=== PATIENT | male | born 1955 | race Caucasian/White ===

== ENCOUNTER → 2019-05-27 10:39 | Outpatient (CLI) | payer BC, SELFPAY ==
--- NOTE | 2019-05-27 | DI.US.S_ITS ---
PROCEDURE: US PERIPH VENOUS LOW EXTREM RT INDICATIONS: UNILATERAL PRIMARY OSTEOARTHRITIS, RIGHT KNEE TECHNIQUE: Real-time imaging, as well as color and pulse Doppler interrogation, were performed of the lower extremity deep veins from the inguinal ligament to the popliteal fossa. COMPARISON: None. FINDINGS: The common femoral, and femoral and veins are normally compressible, and free of intraluminal thrombus. There is, however, DVT within the popliteal vein. Color and pulse Doppler demonstrate normal phasic intraluminal flow except that the popliteal vein. There is diminished augmentation response to distal compression maneuver. IMPRESSION: Acute appearing thrombus at the popliteal vein, but no DVT elsewhere. Dictated by: Farooq Torres M.D. on 05/27/2019 at 12:07 Approved by: Farooq Torres M.D. on 05/27/2019 at 12:09
== END ==
PROVIDERS: Family Provider Physician Assistant; PCP Family Medicine; Referring Provider Orthopaedic Surgery; Visit Provider Orthopaedic Surgery
DX: M17.11 Unilateral primary osteoarthritis, right knee (principal); I82.431 Acute embolism and thrombosis of right popliteal vein
CPT/HCPCS: 93971

== ENCOUNTER 2019-05-27 11:16 | Emergency (ER) | payer BC, SELFPAY ==
[2019-05-27 11:26] VITALS: BP 146/82; PULSE 90; RESP 14; TEMP 36.8; O2SAT 98; BMI 26.1
--- NOTE | 2019-05-27 11:32 | ED_ITS ---
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 Was apparently seen by Dr. Watson this morning there was a concern for DVT, he was sent to [facility] for an ultrasound that is reportedly positive. He presents to the emergency room for further evaluation. He is having no chest pain, palpitations, dyspnea are other signs and symptoms that would be consistent with a pulmonary embolism. His right calf is more swollen than the left calf and somewhat tender posteriorly. Related Data Previous Rx's Medication Instructions Recorded apixaban [Eliquis DVT-PE Treat 30D See Rx Instructions .ROUTE 05/27/19 Start] .COMPLEX #74 each oxycodone 5 mg PO Q8H PRN #14 tab 05/27/19 Allergies Allergy/AdvReac Type Severity Reaction Status Date / Time Penicillins Allergy Unknown Verified 05/27/19 12:13 Review of Systems Review of Systems Narrative: Remainder of ROS is unremarkable Patient History Medical History (Updated 05/27/19 @ 13:08 by Sera Abreu MD) Osteosarcoma (Acute) Surgical History (Updated 05/27/19 @ 11:42 by Sera Abreu MD) Status post left partial knee replacement (Acute) Social History Smoking Status: Former smoker Exam Narrative Exam Narrative: General: Healthy appearing, in no acute distress. Able to give a complete and coherent history. Well-nourished well-developed HEENT: Moist mucous membranes, normal sclera with reactive pupils, Neck: No JVD, supple Respiratory: Lungs are clear to auscultation, no wheezing no rales no rhonchi. Full and symmetrical air movement Cardiac: Regular rate and rhythm no murmurs no bruits Abdomen: Soft nontender good bowel tones, no flank pain Skin: Warm and dry, no rashes Neurologic: Grossly neurologically intact with no obvious asymmetries or abnormalities Extremities: Right calf tender posteriorly slightly more swollen than left, surgical site on the right side is healing nicely Psych: Cooperative, appropriate insight and affect Initial Vital Signs Initial Vital Signs: Vital Signs Temperature 98.2 F 05/27/19 11:26 Pulse Rate 90 05/27/19 11:26 Respiratory Rate 14 05/27/19 11:26 Blood Pressure 146/82 H 05/27/19 11:26 Pulse Oximetry 98 05/27/19 11:26 Course Orders Ordered: Discontinued Medications Apixaban (Eliquis) 10 mg PO NOW ONE Stop: 05/27/19 13:09 Vital Signs Vital signs: Vital Signs - 8 hr 05/27/19 11:26 Temperature 98.2 F Pulse Rate 90 Respiratory Rate 14 Blood Pressure 146/82 H Pulse Oximetry 98 Medical Decision Making Medical Records Medical records reviewed: Yes I reviewed the patient's medical records. MDM Narrative Medical decision making narrative: Distal DVT after a knee replacement surgery. No signs of PE year proximal extension. Pain is been an issue he has only 14 more oxycodone left at home. Will start on Eliquis, follow-up appointment with Dr. Forrest with coordination happening in the emergency room today. An additional 20 more oxycodone as well as a month of Eliquis with the starter pack prescription sent to [facility] All questions are answered. Patient is safe for home discharge Discharge Plan Departure Patient Disposition: Home Clinical Impression: Deep vein thrombosis of lower extremity Qualifiers: Affected thrombotic vein of extremity: popliteal Chronicity: acute Laterality: right Qualified Code(s): I82.431 - Acute embolism and thrombosis of right popliteal vein Instructions: DI for Deep Vein Thrombosis Activity Restrictions/Additional Instructions: Thank you for coming in today. I am sorry about all of the confusion. I have spoken with Dr. Schwartz who will be managing your deep venous thrombosis. It is in the lower calf only and does not come higher than your knee. I have sent a prescription for Eliquis, a blood thinner, to [facility] for you to [facility]eps[facility]. Please follow the instructions on the pack it. I have given you your mg dose in the emergency department. I have also sent a prescription for additional oxycodone to help with pain from this DVT to the same drug store I have reviewed findings with Dr. Schwartz and he is expecting to see you this MondayMay 30 at 2:00 a.m. in his office to review all findings and make sure your tolerating the medicine appropriately. If you have any additional concerns problems more swelling in the upper part of your leg, notice palpitations, chest pain, shortness of breath, rapid heart rate all of those things would be appropriate to have further evaluated with a return to the emergency department. I hope you heal completely and quickly. Prescriptions: New Laurenmireyafelipe DVT-PE Treat 30D Start 5 mg (74 tabs) tablets,dose pack See Rx Instructions .ROUTE .COMPLEX Qty: 74 RF: 0 oxycodone 5 mg tablet 5 mg PO Q8H PRN (Reason: pain) Qty: 14 RF: 0 Referrals: Chapito Schwartz MD [Primary Care Provider] - Cb Watson MD [Physician] - (Surgery done by Dr Montoya)
[2019-05-27 13:24] VITALS: BP 140/68; PULSE 82; RESP 14; O2SAT 95
== END 2019-05-27 13:26 | disposition home or self-care (01) ==
PROVIDERS: Emergency Provider Emergency Medicine; Family Provider Physician Assistant; PCP Family Medicine
DX: I82.431 Acute embolism and thrombosis of right popliteal vein (principal); M17.11 Unilateral primary osteoarthritis, right knee
CPT/HCPCS: 93971; 99281; 99283

== ENCOUNTER 2019-06-02 17:34 | Emergency (ER) | payer BC, SELFPAY ==
--- NOTE | 2019-06-02 17:46 | DI.RAD.S_ITS ---
PROCEDURE: XR CHEST 1V INDICATIONS: chest pain TECHNIQUE: One view of the chest was acquired. COMPARISON: [facility], , CHEST 2 VIEW, 07/08/2007, 9:16. FINDINGS: Surgical changes and devices: None. Lungs and pleura: Low lung volumes are noted. This causes a crowded appearance to the lung markings and limits evaluation. Mild, streaky opacities are seen at the lung bases. No pneumothorax or pleural effusions are seen. Mediastinum: Mediastinal contours appear normal. Heart size is normal. Bones and chest wall: No suspicious bony lesions. Overlying soft tissues appear unremarkable. IMPRESSION: Likely atelectasis is seen at the lung bases in this patient with an incomplete inspiratory result. Differential diagnosis includes mild/early infiltrate, yet this is considered to be less likely. As clinically appropriate, a short-term followup chest series (with PA and lateral views) performed in deep inspiration is suggested for further evaluation. Dictated by: Paulo Menard M.D. on 06/02/2019 at 17:07 Approved by: Paulo Menard M.D. on 06/02/2019 at 17:08
[2019-06-02 17:48] VITALS: BP 140/86; PULSE 120; RESP 18; TEMP 36.9; O2SAT 98; BMI 26.1
[2019-06-02 17:59] LABS: Add Manual Diff / Slide Review NO; Basophils Absolute Auto 100 /uL (0-100); Basophils Percent Auto 0.7 % (0-2); Eosinophils Absolute Auto 500 /uL (0-450); Eosinophils Percent Auto 4.2 % (2-4); Hematocrit 44.6 % (41-53); Hemoglobin 15.4 g/dL (13.5-17.5); Lymphocytes Absolute Auto 2100 /uL (1100-4500); Lymphocytes Percent Auto 18.7 % (25-40); Mean Corpuscular HGB Conc 34.6 % (30-36); Mean Corpuscular Hemoglobin 32.9 PG (26-34); Mean Corpuscular Volume 95.3 fL (80-100); Monocytes Absolute Auto 800 /uL (0-900); Monocytes Percent Auto 7.1 % (3-14); Neutrophils Absolute Auto 7700 /uL (1500-7000); Neutrophils Percent Auto 69.3 % (50-75); Platelet Count 171 X10^3/uL (150-400); Red Blood Cell Count 4.68 X10^6/uL (4.5-5.9); White Blood Cell Count 11.2 X10^3/uL (4.5-11.0)
[2019-06-02 18:05] LABS: Alanine Aminotransferase 24 IU/L (<50); Albumin 4.5 g/dL (3.5-5.0); Albumin Globulin Ratio 1.3 (1.0-2.8); Alkaline Phosphatase 98 U/L (38-126); Aspartate Aminotransferase 25 IU/L (17-59); BUN Creatinine Ratio 14.6 (6-22); Blood Urea Nitrogen 13 mg/dL (9-20); Calcium 9.5 mg/dL (8.4-10.2); Carbon Dioxide 25 mmol/L (22-32); Chloride 102 mmol/L (98-107); Creatine Kinase 37 U/L (55-170); Estimated Glomerular Filt Rate > 60.0 mL/min (>60); Globulin 3.5 g/dL (1.7-4.1); Glucose 122 mg/dL (80-110); HEMOLYSIS < 15 (0-50); Lipase 27 U/L (23-300); Potassium 4.3 mmol/L (3.4-5.1); Sodium 136 mmol/L (137-145)
[2019-06-02 18:06] LABS: INR 1.2 (0.9-1.3); Prothrombin Time 13.7 SECONDS (10.1-12.7)
[2019-06-02 18:08] LABS: PTT Partial Thromboplastin Tim 35 SECONDS (26.4-36.2)
--- NOTE | 2019-06-02 18:11 | ED_ITS ---
HPI - Chest Pain General Chief Complaint: Chest Pain Stated Complaint: Chest pain Time Seen by Provider: 06/02/19 17:46 Source: patient Mode of arrival: Ambulatory Limitations: no limitations History of Present Illness HPI narrative: 63-year-old male with a known right lower extremity DVT. Currently on Eliquis for this here for evaluation of left and right-sided chest pain. Symptoms started earlier today. Not worse with palpation or movement. States it is worse with taking a deep breath. The right lower extremity DVT was presumably caused by a right-sided knee surgery within the past month. He states that he has been taking his Eliquis since that was prescribed to him. Related Data Previous Rx's Medication Instructions Recorded apixaban [Eliquis DVT-PE Treat 30D See Rx Instructions .ROUTE 05/27/19 Start] .COMPLEX #74 each oxycodone 5 mg PO Q8H PRN #14 tab 05/27/19 enoxaparin [Lovenox] 80 mg SUBCUT Q12H #8 ml 06/02/19 hydrocodone-acetaminophen [[place]] 1 tab PO Q8H PRN #10 tab 06/02/19 Allergies Allergy/AdvReac Type Severity Reaction Status Date / Time Penicillins Allergy Unknown Verified 05/27/19 12:13 Review of Systems Constitutional Constitutional: Denies fever(s) and Denies headache(s) ENT Ears, Nose, Mouth, and Throat: Denies headache(s) Cardiovascular Cardiovascular: Reports chest pain, Reports rapid heart rate and Denies dyspnea on exertion Respiratory Respiratory: Reports pain on inspiration and Denies dyspnea on exertion Gastrointestinal Gastrointestinal: Denies abdominal pain, Denies nausea and Denies vomiting Genitourinary Genitourinary: Denies dysuria Musculoskeletal Musculoskeletal: Denies myalgias Integumentary/Breasts Skin/Breast: Denies lesions and Denies rash Neurologic Neurologic: Denies behavioral changes and Denies headache(s) Psychiatric Psychiatric: Denies behavioral changes Hematologic/Lymphatic Comments: On Eliquis Allergic/Immunologic Allergic/Immunologic: Denies urticaria Patient History Medical History Deep vein thrombosis of lower extremity (Inactive) Osteosarcoma (Acute) Surgical History (Updated 05/27/19 @ 11:42 by Sera Abreu MD) Status post left partial knee replacement (Acute) Social History Smoking Status: Former smoker Smoking Status: Former smoker Substance Use Type: does not use Exam Initial Vital Signs Initial Vital Signs: Vital Signs Temperature 98.4 F 06/02/19 17:48 Pulse Rate 120 H 06/02/19 17:48 Respiratory Rate 18 06/02/19 17:48 Blood Pressure 140/86 06/02/19 17:48 Pulse Oximetry 98 06/02/19 17:48 Const General: cooperative, comfortable, well developed and well groomed Limitations: mental status not altered HENMT Head: normal to inspection and normocephalic Resp Effort & Inspection: normal respiratory effort Auscultation: clear to auscultation bilaterally Cardio Rate: tachycardic Rhythm: regular rhythm Pulses: radial pulses present Skin Lesions: no lesions Rashes: no rashes Neuro General: alert and awake Cognition: normal cognition Speech: speech normal Gait: normal gait Motor: muscle tone normal throughout Extrem General: capillary refill normal Psych Appearance: grossly normal and well kempt Scores GCS Lucas coma scale eye opening: Spontaneous Sumner coma scale verbal response: Orientated Sumner coma scale motor response: Obey commands Lucas coma scale total score: 15 Course Orders Ordered: Discontinued Medications Hydrocodone Bitart/Acetaminophen (Vicodin 5/325 Prepack) 1 bottle MISC SEEINSTR ONE Stop: 06/02/19 19:59 Last Admin: 06/02/19 20:39 Dose: 1 bottle Documented by: MIKA Hydrocodone Bitart/Acetaminophen ([place] 5/325) 2 tab PO NOW ONE Stop: 06/02/19 20:59 Last Admin: 06/02/19 21:03 Dose: 2 tab Documented by: MIKA Enoxaparin Sodium (Lovenox) 85 mg 1 mg/kg (85 mg) SUBCUT NOW ONE Stop: 06/02/19 19:18 Last Admin: 06/02/19 20:39 Dose: 85 mg Documented by: MIKA Hydromorphone HCl (Dilaudid) 1 mg IV NOW ONE Stop: 06/02/19 18:58 Last Admin: 06/02/19 19:15 Dose: 1 mg Documented by: CHRISTIN Morphine Sulfate (Morphine) 4 mg IV NOW ONE Stop: 06/02/19 18:13 Last Admin: 06/02/19 18:20 Dose: 4 mg Documented by: CHRISTIN Vital Signs Vital signs: Vital Signs - 8 hr 06/02/19 20:00 Pulse Rate 96 H Respiratory Rate 20 Blood Pressure [Right Arm] 128/80 Pulse Oximetry 94 MDM - Chest Pain Medical Records Data Attestation: I reviewed the patient's medical records. Lab Data Attestation: I reviewed the patient's lab results. Result diagrams: 06/02/19 17:46 06/02/19 17:46 Labs: Lab Results 06/02/19 06/02/19 06/02/19 Range/Units 17:46 17:46 17:46 WBC 11.2 H (4.5-11.0) X10^3/uL RBC 4.68 (4.5-5.9) X10^6/uL Hgb 15.4 (13.5-17.5) g/dL Hct 44.6 (41-53) % MCV 95.3 (80-100) fL MCH 32.9 (26-34) PG MCHC 34.6 (30-36) % RDW 13.0 (11.6-14.8) % Plt Count 171 (150-400) X10^3/uL Neut % (Auto) 69.3 (50-75) % Lymph % (Auto) 18.7 L (25-40) % Cascade % (Auto) 7.1 (3-14) % Eos % (Auto) 4.2 H (2-4) % Baso % (Auto) 0.7 (0-2) % Neut # (Auto) 7700 H (7011-0586) /uL Lymph # (Auto) 2100 (8290-9559) /uL Cascade # (Auto) 800 (0-900) /uL Eos # (Auto) 500 H (0-450) /uL Baso # (Auto) 100 (0-100) /uL PT 13.7 H (10.1-12.7) SECONDS INR 1.2 (0.9-1.3) APTT 35 (26.4-36.2) SECONDS Sodium 136 L (137-145) mmol/L Potassium 4.3 (3.4-5.1) mmol/L Chloride 102 (98-107) mmol/L Carbon Dioxide 25 (22-32) mmol/L BUN 13 (9-20) mg/dL Creatinine 0.89 (0.66-1.25) mg/dL Estimated GFR > 60.0 (>60) mL/min BUN/Creatinine Ratio 14.6 (6-22) Glucose 122 H (80-110) mg/dL Calcium 9.5 (8.4-10.2) mg/dL Total Bilirubin 1.0 (0.2-1.3) mg/dL AST 25 (17-59) IU/L ALT 24 (<50) IU/L Alkaline Phosphatase 98 (38-126) U/L Total Creatine Kinase 37 L (55-170) U/L CK-MB (CK-2) TNP CK-MB (CK-2) Rel Index TNP Troponin I < 0.012 (0.01-0.034) ng/mL NT-Pro-B Natriuret Pep (<125) pg/mL Total Protein 8.0 (6.3-8.2) g/dL Albumin 4.5 (3.5-5.0) g/dL Globulin 3.5 (1.7-4.1) g/dL Albumin/Globulin Ratio 1.3 (1.0-2.8) Lipase 27 (23-300) U/L 03/15/20 Range/Units 17:46 WBC (4.5-11.0) X10^3/uL RBC (4.5-5.9) X10^6/uL Hgb (13.5-17.5) g/dL Hct (41-53) % MCV (80-100) fL MCH (26-34) PG MCHC (30-36) % RDW (11.6-14.8) % Plt Count (150-400) X10^3/uL Neut % (Auto) (50-75) % Lymph % (Auto) (25-40) % Cascade % (Auto) (3-14) % Eos % (Auto) (2-4) % Baso % (Auto) (0-2) % Neut # (Auto) (5460-1259) /uL Lymph # (Auto) (8975-7737) /uL Cascade # (Auto) (0-900) /uL Eos # (Auto) (0-450) /uL Baso # (Auto) (0-100) /uL PT (10.1-12.7) SECONDS INR (0.9-1.3) APTT (26.4-36.2) SECONDS Sodium (137-145) mmol/L Potassium (3.4-5.1) mmol/L Chloride (98-107) mmol/L Carbon Dioxide (22-32) mmol/L BUN (9-20) mg/dL Creatinine (0.66-1.25) mg/dL Estimated GFR (>60) mL/min BUN/Creatinine Ratio (6-22) Glucose (80-110) mg/dL Calcium (8.4-10.2) mg/dL Total Bilirubin (0.2-1.3) mg/dL AST (17-59) IU/L ALT (<50) IU/L Alkaline Phosphatase (38-126) U/L Total Creatine Kinase (55-170) U/L CK-MB (CK-2) CK-MB (CK-2) Rel Index Troponin I (0.01-0.034) ng/mL NT-Pro-B Natriuret Pep 42 (<125) pg/mL Total Protein (6.3-8.2) g/dL Albumin (3.5-5.0) g/dL Globulin (1.7-4.1) g/dL Albumin/Globulin Ratio (1.0-2.8) Lipase (23-300) U/L Imaging Data Chest x-ray: Radiologist's Impression: [address] [address] XRay Report Signed Patient: Eliezer Ríos [facility]#: [id number] : 6Acct:[id number] Age/Sex: 63 / MDate of Service: 06/02/19 Loc: ED Accession Number: [id number] Procedure: XR chest 1V Ordering Provider: Geovanni Ford PROCEDURE: XR CHEST 1V INDICATIONS: chest pain TECHNIQUE: One view of the chest was acquired. COMPARISON: [facility] , CHEST 2 VIEW, 07/08/2007, 9:16. FINDINGS: Surgical changes and devices: None. Lungs and pleura: Low lung volumes are noted. This causes a crowded appearance to the lung markings and limits evaluation. Mild, streaky opacities are seen at the lung bases. No pneumothorax or pleural effusions are seen. Mediastinum: Mediastinal contours appear normal. Heart size is normal. Bones and chest wall: No suspicious bony lesions. Overlying soft tissues appear unremarkable. IMPRESSION: Likely atelectasis is seen at the lung bases in this patient with an incomplete inspiratory result. Differential diagnosis includes mild/early infiltrate, yet this is considered to be less likely. As clinically appropriate, a short-term followup chest series (with PA and lateral views) performed in deep inspiration is suggested for further evaluation. Dictated by: Paulo Menard M.D. on 06/02/2019 at 17:07 Approved by: Paulo Menard M.D. on 06/02/2019 at 17:08 CT scan - chest: Radiologist's Impression: [address] [address] [address] Scan Report Signed Patient: Eliezer Ríos MMR#: [id number] : 6Acct:[id number] Age/Sex: 63 / MDate of Service: 06/02/19 Loc: ED Accession Number: [id number] Procedure: CT angio chest PE protocol Ordering Provider: Quincy Marsh D.O. PROCEDURE: CT ANGIO CHEST PE PROTOCOL INDICATIONS: Chest pain, shortness of breath, tachycardia TECHNIQUE: After the administration of intravenous contrast, 2 mm thick sections acquired from the pulmonary apices to the posterior costophrenic angles. 3-dimensional maximum intensity projection (MIP) coronal and sagittal reformats were then acquired through the thorax. For radiation dose reduction, the following was used: automated exposure control, adjustment of mA and/or kV according to patient size. COMPARISON: None. FINDINGS: Image quality: Excellent. Pulmonary arteries: There are acute pulmonary emboli present in multiple right lower lobe basilar segment pulmonary arteries. There is no central pulmonary emboli. Lungs and pleura: Patchy bibasilar atelectasis. No pleural fluid. Mediastinum: Heart size is normal, without pericardial effusion. No med iastinal or hilar adenopathy. Thoracic aorta is normal in caliber and enhancement. Esophagus is normal in caliber, without hiatal hernia. Bones and chest wall: No suspicious bony lesions. Ribs and thoracic spine appear intact throughout. Thyroid gland is unremarkable. No axillary or supraclavicular adenopathy. Abdomen: Visualized upper abdominal solid organs appear normal in the early arterial phase of enhancement. IMPRESSION: Multiple acute pulmonary emboli, right lower lobe. No central PE. No heart strain. Mild bibasilar atelectasis. Comment: Findings were discussed with Dr. Marsh at the time of study dictation. Dictated by: Alexander Charles M.D. on 06/02/2019 at 19:06 Approved by: Alexander Charles M.D. on 06/02/2019 at 19:10 ECG Data Attestation: I personally reviewed and interpreted this ECG as follows: Prior ECG tracings: not available for review Interpretation: Sinus tachycardia Ventricular rate 117 Left axis deviation Normal QRS Normal QTC No ST T wave changes MDM Narrative Medical decision making narrative: Patient is tachycardic however is not tachypneic, not hypoxic, not in any respiratory distress. Troponin is negative. BNP is negative. Not hypotensive. Is having right and left-sided chest pain. Is also tachycardic. Has a known history of a DVT. States he has been taking his Eliquis as prescribed. CTA of his chest does show multiple right-sided pulmonary embolisms user distal pulmonary embolus. I did discuss the results of the CT scan with the patient informed him that since he has been on the Eliquis and yet has developed pulmonary emboli that we now need to switch him to Lovenox. He was given his 1st dose here in the emergency department and was given a prescription for this. He was instructed to stop taking the Eliquis he was also instructed that tomorrow he needed to contact his primary provider for follow-up. I feel given the fact that he is stable that he does not require admission to the hospital. He was given strict return precautions and follow-up instructions. He expressed understanding and agreement. Discharge Plan Departure Patient Disposition: Home Clinical Impression: Pulmonary embolism Qualifiers: Pulmonary embolism type: unspecified Chronicity: acute Acute cor pulmonale presence: unspecified Qualified Code(s): I26.99 - Other pulmonary embolism without acute cor pulmonale Chest pain Qualifiers: Chest pain type: unspecified Qualified Code(s): R07.9 - Chest pain, unspecified Discharge Date/Time: 06/02/19 21:21 Instructions: DI for Pulmonary Embolism Activity Restrictions/Additional Instructions: Your CT scan today does show multiple pulmonary emboli. This is most likely from the blood clot in your right lower extremity. Unfortunately this is despite the fact that you have been using the Eliquis. We now need to switch you to a medication called Lovenox. Tomorrow you need to contact your primary provider for a follow-up in to discuss further workup. An electronic prescription for the Lovenox was sent to [facility]. Return to the emergency department for any new or worsening symptoms Prescriptions: New enoxaparin [Lovenox] 80 mg/0.8 mL syringe 80 mg SUBCUT Q12H Qty: 8 RF: 5 hydrocodone-acetaminophen [[place]] 5-325 mg tablet 1 tab PO Q8H PRN (Reason: pain) Qty: 10 RF: 0 No Action Eliquis DVT-PE Treat 30D Start 5 mg (74 tabs) tablets,dose pack See Rx Instructions .ROUTE .COMPLEX Qty: 74 RF: 0 oxycodone 5 mg tablet 5 mg PO Q8H PRN (Reason: pain) Qty: 14 RF: 0 Referrals: Chapito Schwartz MD [Primary Care Provider] -
[2019-06-02] MEDS: MORPHINE 4 MG/ML INJ IV (18:20)
[2019-06-02 18:28] LABS: NT-proBNP (BNP-Adult 18+) 42 pg/mL (<125)
[2019-06-02 18:35] LABS: Troponin I < 0.012 ng/mL (0.01-0.034)
[2019-06-02 18:49] VITALS: BP 149/70; PULSE 99; RESP 21; O2SAT 99
[2019-06-02] MEDS: HYDROMORPHONE 1 MG INJ IV (19:15)
[2019-06-02 20:00] VITALS: BP 128/80; PULSE 96; RESP 20; O2SAT 94
[2019-06-02] MEDS: HYDROCODONE/ACET 5/325 PREPACK 1 BOTTLE MISC (20:39)
[2019-06-02] MEDS: ENOXAPARIN 100 MG/ML SYRINGE 85 MG SUBCUT (20:39)
[2019-06-02] MEDS: HYDROCODONE/ACET 5/325 TABLET 2 TAB PO (21:03)
== END 2019-06-02 21:21 | disposition home or self-care (01) ==
PROVIDERS: Nurse Practitioner Family; Emergency Provider Emergency Medicine; Family Provider Physician Assistant; PCP Family Medicine
DX: I26.99 Other pulmonary embolism without acute cor pulmonale (principal); R07.9 Chest pain, unspecified; R06.02 Shortness of breath; R00.0 Tachycardia, unspecified; Z79.01 Long term (current) use of anticoagulants
CPT/HCPCS: 36415; 71045; 71275; 80053; 82550; 83690; 83880; 84484; 85025; 85610; 85730; 93005; 96372; 96374; 96375; 99284; J1170; J1650; J2270; Q9967

== ENCOUNTER → 2019-06-04 11:55 | Outpatient (CLI) | payer BC, SELFPAY ==
--- NOTE | 2019-06-04 | DI.US.S_ITS ---
PROCEDURE: US PERIPH VENOUS LOW EXTREM RT INDICATIONS: FOLLOW UP RIGHT LEG DVT TECHNIQUE: Real-time imaging, as well as color and pulse Doppler interrogation, were performed of the lower extremity deep veins from the inguinal ligament to the popliteal fossa. COMPARISON: [facility], CT, CT ANGIO CHEST PE PROTOCOL, 06/02/2019, 18:14. [facility], US, US PERIP VENOUS LOW EXTREM RT, 05/27/2019, 10:58. FINDINGS: The common femoral, femoral and popliteal veins are normally compressible, and free of intraluminal thrombus. Color and pulse Doppler demonstrate normal phasic intraluminal flow. There is normal augmentation response to distal compression maneuver. IMPRESSION: Resolution of a right popliteal vein DVT identified 05/27/19. Dictated by: Farooq Torres M.D. on 06/04/2019 at 13:54 Approved by: Farooq Torres M.D. on 06/04/2019 at 13:55
== END ==
PROVIDERS: Family Provider Physician Assistant; PCP Family Medicine; Referring Provider Family Medicine; Visit Provider Family Medicine
DX: Z09 Encounter for follow-up examination after completed treatment for conditions other than malignant neoplasm (principal); Z86.718 Personal history of other venous thrombosis and embolism
CPT/HCPCS: 93971

== ENCOUNTER → 2019-06-20 08:54 | Outpatient (CLI) | payer BC, SELFPAY ==
--- NOTE | 2019-06-20 | DI.US.S_ITS ---
PROCEDURE: PERIP VENOUS LOW EXTREM RT INDICATIONS: RECENT HISTORY RIGHT POPLITEAL DVT, PE TECHNIQUE: Real-time imaging, as well as color and pulse Doppler interrogation, were performed of the lower extremity deep veins from the inguinal ligament to the popliteal fossa. COMPARISON: [facility], [facility] [place] VENOUS LOW EXTREM RT, 05/27/2019, 10:58. [facility], [facility] [place] [facility] LOW EXTREM RT, 06/04/2019, 12:15. FINDINGS: The common femoral, femoral and popliteal veins are normally compressible, and free of intraluminal thrombus. Color and pulse Doppler demonstrate normal phasic intraluminal flow. There is normal augmentation response to distal compression maneuver. Previously seen popliteal vein thrombus is no longer visualized. IMPRESSION: No evidence of deep venous thrombosis. Previously identified popliteal DVT no longer sonographically visible. Dictated by: Brice Soler M.D. on 06/20/2019 at 9:46 Approved by: Brice Soler M.D. on 06/20/2019 at 9:48
== END ==
PROVIDERS: Family Provider Physician Assistant; PCP Family Medicine; Referring Provider Family Medicine; Visit Provider Family Medicine
DX: I82.431 Acute embolism and thrombosis of right popliteal vein (principal); I26.99 Other pulmonary embolism without acute cor pulmonale
CPT/HCPCS: 93971

== ENCOUNTER → 2020-12-14 11:05 | Outpatient (CLI) | payer OTHER, SELFPAY ==
[2020-12-14 11:38] LABS: Appearance Urine UA CLEAR; Bilirubin Urine UA NEGATIVE (NEGATIVE); Color Urine UA YELLOW; Glucose Urine UA NEGATIVE (Negative); Ketones Urine UA NEGATIVE (NEGATIVE); Leukocyte Esterase Urine UA NEGATIVE (NEGATIVE); Nitrite Urine UA NEGATIVE (Negative); Occult Blood Urine UA NEGATIVE (Negative); Protein Urine UA NEGATIVE (Negative); Specific Gravity Urine UA 1.015 (1.000-1.035); Urobilinogen Urine UA 0.2 E.U./dL (0.2)
[2020-12-14 12:13] LABS: Bacteria Urine None Seen; Culture Indicated Urine Cult Not Indicated; RBC Urine None Seen (0-5/HPF); Urine Comments Microscopic Normal; WBC Urine None Seen (0-5/HPF)
[2020-12-14 12:20] LABS: Add Manual Diff / Slide Review NO; Basophils Absolute Auto 100 /uL (0-100); Basophils Percent Auto 0.9 % (0-2); Eosinophils Absolute Auto 400 /uL (0-450); Eosinophils Percent Auto 5.7 % (2-4); Hematocrit 46.7 % (41-53); Hemoglobin 16.1 g/dL (13.5-17.5); Lymphocytes Absolute Auto 2300 /uL (1100-4500); Lymphocytes Percent Auto 31.5 % (25-40); Mean Corpuscular HGB Conc 34.5 % (30-36); Mean Corpuscular Hemoglobin 33.9 PG (26-34); Mean Corpuscular Volume 98.3 fL (80-100); Monocytes Absolute Auto 400 /uL (0-900); Monocytes Percent Auto 5.9 % (3-14); Neutrophils Absolute Auto 4200 /uL (1500-7000); Platelet Count 112 X10^3/uL (150-400); Red Blood Cell Count 4.75 X10^6/uL (4.5-5.9); Red Cell Distribution Width 13.1 % (11.6-14.8); White Blood Cell Count 7.5 X10^3/uL (4.5-11.0)
[2020-12-14 12:28] LABS: Hemoglobin A1C% w Est Avg Glu 5.3 % (4.0-6.0)
[2020-12-14 12:52] LABS: BUN Creatinine Ratio 17.7 (6-22); Blood Urea Nitrogen 14 mg/dL (9-20); Calcium 9.4 mg/dL (8.4-10.2); Carbon Dioxide 27 mmol/L (22-32); Chloride 107 mmol/L (98-107); Estimated Glomerular Filt Rate > 60.0 mL/min (>60); Glucose 94 mg/dL (80-110); HEMOLYSIS < 15 (0-50); Potassium 4.2 mmol/L (3.4-5.1); Sodium 138 mmol/L (137-145)
== END ==
PROVIDERS: Family Provider Physician Assistant; PCP Family Medicine; Referring Provider Orthopaedic Surgery Orthopaedic Surgery of the Spine; Visit Provider Orthopaedic Surgery Orthopaedic Surgery of the Spine
DX: Z01.818 Encounter for other preprocedural examination (principal); Z01.812 Encounter for preprocedural laboratory examination; R73.9 Hyperglycemia, unspecified; N39.0 Urinary tract infection, site not specified
CPT/HCPCS: 36415; 80048; 81001; 83036; 85025; 93005

== ENCOUNTER → 2021-01-01 11:36 | Outpatient (CLI) | payer OTHER, SELFPAY ==
[2021-01-01 13:37] LABS: COVID19 -Nasal RAPID Negative (Negative)
== END ==
PROVIDERS: Family Provider Physician Assistant; PCP Family Medicine; Referring Provider Nurse Practitioner; Visit Provider Nurse Practitioner
DX: Z20.822 Contact with and (suspected) exposure to COVID-19 (principal)
CPT/HCPCS: 87635

== ENCOUNTER 2021-01-04 12:11 | Observation (INO) | payer OTHER, SELFPAY ==
[2021-01-01 13:40] VITALS: BMI 25.8
[2021-01-04] VITALS (14 sets, daily range): BP systolic 122–156; BP diastolic 77–92; PULSE 83–108; RESP 15–24; TEMP 36.1–37.1; O2SAT 92–97; BMI 25.8
[2021-01-04] MEDS: ACETAMINOPHEN 325 MG TABLET 975 MG PO (13:16)
[2021-01-04] MEDS: LACTATED RINGERS 1,000 ML 42 ML IV ×2 (13:16→17:55)
--- NOTE | 2021-01-04 15:24 | PM.PREOP ---
Pre-operative Note COVID-19 COVID-19 status: Negative Result date/Date tested (Pos, Neg/Pending): 01/02/21 Interval Note History & Physical reviewed/Exam performed by Physician: Yes Changes to H&P: No
[2021-01-04] MEDS: CLINDAMYCIN 900 MG/50 ML PIGGYBACK 50 MG IV (15:48)
[2021-01-04] MEDS: BUPIVACAINE 0.25% (PF) VIAL 30 ML INJ (16:16)
[2021-01-04] MEDS: BUPIVACAINE LIPOSOME 266 MG/20 ML VIAL INJ (16:17)
[2021-01-04] MEDS: EPINEPHrine 1 MG/ML 0.15 MG IM (16:17)
--- NOTE | 2021-01-04 16:20 | SUR.OPER ---
Prone on spine table, head in foam head support, padded chest and pelvic supports, gel pad at knees, lower legs supported by pillows; nipples, genitalia and toes free of pressure, arms secured on foam padded arm boards at <90 degrees abduction. Tape over blanket at thigh secured to table.
--- NOTE | 2021-01-04 18:18 | DI.RAD.S_ITS ---
PROCEDURE: XR LUMBAR SPINE 2-3V INDICATIONS: L4-5 TLIF TECHNIQUE: 2 low resolution intraoperative fluoroscopic spot films were obtained COMPARISON: None. FINDINGS: Low resolution fluoroscopic spot films show centrally positioned L4-5 interbody cage graft and associated posterior ron and screw instrumentation. IMPRESSION: Fluoroscopic guidance Approved by: Marcin Muñoz M.D. on 01/04/2021 at 18:00
--- NOTE | 2021-01-04 18:21 | PM.OP.1 ---
Operative Date/Time/Diagnoses Date of procedure: 01/04/21 Time of procedure: 15:30 Pre-op diagnosis: 1. L4-5 far lateral disc herniation 2. L4-5 spinal stenosis with radiculopathy Post-op diagnosis: same Procedure & Clinicians Procedure: 1. L4-5 Postero-lateral and posterior interbody fusion 2. L4-5 interbody cage placement. 3. L4-5 decompressive laminectomy with bilateral facetecomies 4. L4-5 Posterior non-segmental instrumentation 5. [place] of bone marrow from iliac crest 6. Utilization of microsurgical technique and operating microscope Same procedure as scheduled: Yes Indications: Patient has been having chronic back pain and worsening lumbar radiculopathy. Patient failed multiple conservative management with worsening pain weakness and numbness in her lower extremity. Patient has been having difficulty performing activity of daily living. After discussing risks benefits of treatment options, patient elected proceed with surgery. Surgeon: Rg Rose Chief Scientific Officer: Carmen Grimes Click Yes if Unassisted: No Anesthesia Type: General Operative Notes Closure Type: primary Specimen(s): none sent Prosthetic devices, grafts, tissues, transplants, or devices: Globus revolve screws, Rise cage Applied: catheter Estimated Blood Loss (mL): 50 Blood products transfused: none Procedure in detail: Patient was seen in the preoperative area. Risks and benefits of the surgery was discussed with the patient. Informed consent was obtained from the patient and placed in the chart. Surgical site was marked. Patient was taken to the operative room. General anesthesia was administered. Prophylactic antibiotic was given to the patient less than 30 min before the incision was made. Patient was placed into a prone position on the Rubio table. Patient's back was then prepped and draped in the sterile fashion. Time-out was performed at this time. Using AP and lateral C-arm imaging the interval between L4-5 was identified and marked on patient's back. A 2 inch incision 2 in from midline was made on the left side first. The fascia was incised in line with skin incision. Globus MARS retractors was placed inside the incision and docked onto the L4 lamina. Using microsurgical technique and operating microscope, a L4 laminectomy and L4-5 facetectomy was performed using a Kerrison rongeur. The disc space at L4-5 was identified. And a total diskectomy was performed at L4-5 level. Patient was found to have a extruded far lateral disc herniation causing severe neural foramen stenosis on the left side with severe neural nerve root impingement. The stenosis was fully decompressed after the laminectomy facetectomy diskectomy was completed. The laminectomy and facetectomy rendered L4-5 level grossly unstable and require fusion procedure at the same time. The endplates were decorticated using a rasp and shaver. The total diskectomy and decortication was performed at L4-5 level in order to to accomplish a L4-5 fusion. The local bone from the laminectomy and facetectomy was saved for local bone grafting. After the total diskectomy and decortication was completed, Trifecta bone graft material was combined with local bone that was harvested earlier. At this time, a separate skin is incision was made over the iliac crest. A Jamshidi needle was inserted into the iliac crest through a separate skin incision. 5 cc of bone marrow aspiration was obtained through the separate skin incision using a Jamshidi needle from the iliac crest. The bone marrow aspiration was combined with local bone and the Trifecta bone grafting material. The bone grafting material was placed into the L4-5 interbody space along with a expandable cage. The cage was expanded to its maximum height using the torque limiting screwdriver. At this time a mirror image incision was made on the right side. The fascia was incised in line with the skin incision. Globus MARS retractor was inserted and docked onto the L4-5 posterolateral gutter. Using the power drill, posterior-lateral decortication was performed at L4-5 level until bleeding cortical bone was identified. The remaining bone grafting material was placed into the L4-5 posterior lateral gutter he order to accomplish posterolateral fusion at the L4-5 level. Using the double C-arm technique, pedicle screws were placed into the L4-5 pedicles bilaterally. This was done by placing the Jamshidi needle into the pedicles, then placing the guidewires over the Jamshidi needle, and finally placing the cannulated screws over the guidewires bilaterally. After the pedicle screws were placed, 2 titanium rods was locked into the heads of the pedicle screws using locking caps and torque limiting screwdriver. After all the hardware was placed, and confirmed with AP and lateral C-arm imaging, the wound was then irrigated with sterile normal saline and packed with Ray-Danna gauze for 3 min to accomplish hemostasis. After the gauze was removed the deep fascia was closed with #1 Vicryl suture. The subcutaneous layer was closed with 2-0 Vicryl. The skin was closed with skin fam. Patient tolerated the procedure well. There were no complications. Complications: none Post-operative Condition: stable Disposition: PACU Plan for aftercare: Admit to inpatient hospital
[2021-01-04] MEDS: HYDROMORPHONE 2 MG INJ IV ×4 (18:31→19:05)
[2021-01-04] MEDS: OXYCODONE IR 5 MG TABLET PO ×2 (18:33→19:21)
[2021-01-04] MEDS: SODIUM CHLORIDE 0.9% 1,000 ML 100 ML IV (21:04)
[2021-01-04] MEDS: OXYCODONE IR 5 MG TABLET 10 MG PO ×2 (21:09→23:47)
[2021-01-04] MEDS: CLINDAMYCIN 600 MG/50 ML PIGGYBACK 50 MG IV (21:16)
--- NOTE | 2021-01-04 22:45 | PC.NURSE ---
Pt arrived from PACU approximately 1929 Sleepy, arouses easily SpO2 96% RA Dsg to surgical back CDI IVF infusing via pump as per MD orders. Med once for discomfort w/good relief. in room. ' Call light w/in reach, bed alarm on for pt safety. Continue w/plan of care
[2021-01-04] MEDS: hydrOXYzine pamoate 25 MG CAPSULE PO (23:47)
[2021-01-05] VITALS: BP 124/85; PULSE 88; RESP 16; TEMP 36.5; O2SAT 95
[2021-01-05] MEDS: CLINDAMYCIN 600 MG/50 ML PIGGYBACK 50 MG IV (03:20)
[2021-01-05] MEDS: OXYCODONE IR 5 MG TABLET 10 MG PO ×4 (03:21→15:07)
[2021-01-05 03:39] VITALS: RESP 16; TEMP 36.3
[2021-01-05 07:13] VITALS: BP 113/72; PULSE 71; RESP 17; TEMP 36.2; O2SAT 94
[2021-01-05] MEDS: hydrOXYzine pamoate 25 MG CAPSULE PO ×4 (07:39→19:22)
[2021-01-05] MEDS: ACETAMINOPHEN 325 MG TABLET 650 MG PO ×2 (07:47→20:58)
--- NOTE | 2021-01-05 07:56 | P.PN_ITS ---
Subjective Subjective Date Patient Seen: 01/05/21 Time Patient Seen: 07:56 Interval history: Pain is moderate to severe. Denies fever or chills. Patient is nauseous but no vomiting. Exam Vital Signs (past 8 hours): - 01/05/21 00:00 01/05/21 03:39 Temperature 97.7 F 97.4 F L Pulse Rate 88 Respiratory Rate 16 16 Blood Pressure 124/85 Pulse Oximetry 95 Oxygen Delivery Method Room Air Oxygen Flow Rate 0 Narrative Exam Narrative: 65-year-old male resting comfortably in bed in no apparent distress. Dressing is Clean, dry, intact.. Motor functions intact bilateral lower extremities. Sensation grossly intact to light touch bilateral lower extremities. 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) Pulmonary embolism (2019) Seasonal allergies Surgical History History of mandibular surgery History of nasal septoplasty Hx of partial thyroidectomy Hx of sinus surgery Hx of tonsillectomy Status post left partial knee replacement (2019) Social History household members: significant other Smoking Status: Current every day smoker alcohol intake: current Assessment & Plan Post-op Postoperative Procedures: Procedures Operation Date: 01/04/21 14:30 Actual Procedure Side Surgeon p L4-5 TLIF Rg Rose MD Postoperative day: 1 Postoperative status narrative: Patient progressing as expected Postoperative plan narrative: Mobilize with physical therapy. Limit bending, twisting, lifting. Disposition home today or tomorrow.
[2021-01-05] MEDS: DOCUSATE 100 MG CAPSULE PO ×2 (09:18→20:55)
[2021-01-05] MEDS: HYDROMORPHONE 0.5 MG INJ IV ×3 (09:24→15:07)
[2021-01-05] MEDS: ONDANSETRON 4 MG/2 ML INJ IV (10:30)
--- NOTE | 2021-01-05 10:30 | OT.IP.EVAL ---
Current Diagnoses Spinal stenosis, lumbar region without neurogenic claudication (01/04/21) Intervertebral disc disorders with radiculopathy, lumbar region (01/04/21) Surgery Performed Operation Date: 01/04/21 14:30 Actual Procedures p L4-5 TLIF - Rg Rose MD Past Medical History (Last Reviewed 01/05/21 @ 07:56 by Diego Pillai PA-C) Arthritis Deep vein thrombosis of lower extremity History of mandibular surgery History of nasal septoplasty Hx of partial thyroidectomy Hx of sinus surgery Hx of tonsillectomy Osteosarcoma (~2000) Pulmonary embolism (2019) Seasonal allergies Status post left partial knee replacement (2019) Surgical History (Last Reviewed 01/05/21 @ 07:56 by Diego Pillai PA-C) History of mandibular surgery History of nasal septoplasty Hx of partial thyroidectomy Hx of sinus surgery Hx of tonsillectomy Status post left partial knee replacement (2018) Occupational Therapy Inpatient Evaluation/Re-Eval M1 PT/OT-IP Prior Functional Status Start: 01/05/21 12:45 Freq: NEEDED Status: Active Protocol: Document 01/05/21 10:55 AB (Rec: 01/05/21 13:03 AB [id number]) Medical Review Prior Functional Status Medical History Reviewed Yes Communication able to make needs known Mobility and Gait pt stated that he is independent with all mobilities and ambulation without AD Social History Household Members significant other Living Arrangements House Number of Floors (Floors) One Floor Number of Stairs To Enter/Railing? 2 platform steps without rails Home Environment Standard Height Toilet,Walk in Shower Home Equipment Front Wheel Walker,Straight Cane Additional Social History Comment pt has an adjustable bed M2 OT-IP Current Condition Start: 01/05/21 13:05 Freq: Status: Active Protocol: Document 01/05/21 09:45 CCC (Rec: 01/05/21 13:32 CCC [id number]) Occupational Therapy Current Condition Current Condition Evaluation Date 01/05/21 Treatment Diagnosis S/p L4-5 TLIF Diagnosis Onset Date 01/04/21 Post Operative Precautions Lumbar Precautions Log Roll,No Twisting,Limit Bending,Lifting Restriction of 10 lbs,Gait Belt above Incisional Area M3 OT- IP Subjective and Pain Start: 01/05/21 13:05 Freq: Status: Active Protocol: Document 01/05/21 09:45 CCC (Rec: 01/05/21 13:32 [facility] [id number]) OT- Subjective Occupational Therapy Visit Type Type Initial Evaluation Visit Start Time 09:45 Visit Stop Time 10:30 Total Visit Minutes 45 Occupational Therapy Visit Comments Patient Comments Pt agreed to get up for OT eval. Pt's came in at the end of the session. Patient/Caregiver Goals TO go home. OT Pain Assessment Pain When Pain Assessed During Mobility Pain Present Pain Present Pain Reported Location lower back Intensity 6 Scale Used Numeric (0 - 10) M4 OT- IP ADL's Start: 01/05/21 13:05 Freq: Status: Active Protocol: Document 01/05/21 09:45 [facility] (Rec: 01/05/21 13:32 [facility] [id number]) OT [id number] Comments OT Self-Feeding Comments No issued noted per pt. OT ADL-Grooming General Evaluation Areas Needing Assistance Retrieving/Set-up of Grooming Items Comments OT Grooming Comments Set-up while standing at sink. OT ADL-Oral Care Comments Oral Care Comments Educated to spit into a cup versus hinge at his hips to best follow his back precautions. OT ADL-Dressing General Eval Lower Body Dressing Ability Maximum Assistance Areas Needing Assistance Socks Comments OT Dressing Comments Pt states his Life Partner to assist with all his needs and not interested in practicing or trying to use LB dressing equipment at this time. OT ADL-Toileting General Evaluation Toileting Ability Standby Assistance Comments OT Toileting Comments SBA while pt able to stand with FWW over the toilet. Pt able to appropriately lean to reach to wipe and also suggested maybe easier to stand and wipe after a bowel movement. OT ADL-Bathing Comments OT Bathing Comments Pt not wanting to shower at this time. Suggested a shower chair may be needed. M5 OT- IP IADL's Start: 01/05/21 13:05 Freq: Status: Active Protocol: Document 01/05/21 09:45 [facility] (Rec: 01/05/21 13:32 [facility] [id number]) OT-Instrumental Activities of Daily Living Home Safety Awareness Awareness of Need for Assistance at Home Good Awareness Ability to Problem Solve Emergency Able to Problem Solve Situations Home Safety Comments Pt's to be home to assist especially as pt is feeling groggy from having pain medications. M6 OT- IP Functional Cognition Start: 01/05/21 13:05 Freq: Status: Active Protocol: Document 01/05/21 09:45 [facility] (Rec: 01/05/21 13:32 [facility] [id number]) Cognitive Factors Limiting Selfcare Function Cognitive Ability Level of Alertness Alert Patient Orientation Name,Place,Situation Attention Span Ability Capable of Focused Attention, Capable of Sustained Attention Ability to Follow Commands Able to Follow One Step Commands Safety Awareness Underestimates Need for Assistance Cognitive Comments Cognitive Assessment Comments Pt a bit groggy from pain medication and needing cues for mobility safety needs. VC to push up from the bed or armrests of the recliner versus on the FWW. Edcuated pt if pushing on the FWW to make sure that his holds it in place for him. OT- Vision and Hearing OT- Hearing Assessment OT- Hearing Assessment WFL OT- Vision Assessment Visual Acuity Glasses All The Time M7 OT- IP Mobility and Balance Start: 01/05/21 13:05 Freq: Status: Active Protocol: Document 01/05/21 09:45 [facility] (Rec: 01/05/21 13:32 [facility] [id number]) OT- Bed Mobility Assessment Rolling Type of Rolling Roll to Right Level of Assistance Contact Guard Assistance Supine to Sit Supine to Sit Assist Contact Guard Assistance Scooting Scooting to Edge of Bed Standby Assistance OT-Transfer Assessment Sit to and From Stand Sit to and from Stand Minimal Assistance,1 Person Assistance Transfers Transfer Ability Contact Guard Assistance, Minimal Assistance Technique Transfer Destination Bed,Chair Transfer Technique Stand Step Pivot Devices Transfer Assistive Devices Gait Belt,Front Wheeled Walker Comments Mobility Comments MIR to stand to FWW. Pt tends to want to push on the FWW to stand and educated to push from the recliner or have at least one hand on the bed. MIR with FWW to walk in the room to the sink and toilet. Pt states feeling nauseous after getting up, BP sitting 128/82 and after up 134/78. Notified nursing of pt request to have medications for being nauseous. OT- Balance Assessment Sitting Balance and Reactions Static Sitting Balance Ability Good Dynamic Sitting Balance Ability Good Standing Balance and Reactions Static Standing Balance Ability Fair Dynamic Standing Balance Ability Fair M8 OT- IP Objective Assessments Start: 01/05/21 13:05 Freq: Status: Active Protocol: Document 01/05/21 09:45 [facility] (Rec: 01/05/21 13:32 [facility] [id number]) OT Gross Range of Motion Upper Extremity Range of Motion Assessment Within Functional Limits OT-Muscle Tone Assessment Muscle Tone WNL Yes M9 OT- IP Assessment and Plan Start: 01/05/21 13:05 Freq: Status: Active Protocol: Document 01/05/21 09:45 [facility] (Rec: 01/05/21 13:32 [facility] [id number]) OT Summary Assessment and Plan Potential Rehabilitation Potential Good Analytic Complexity at Evaluation Low Summary OT Impairments Pain,Balance,Functional Mobility,Grooming,Dressing, Toileting,Bathing,Toilet Transfers,Shower Transfers Progress Towards Goals Progressing Toward Goals Assessment Summary Pt low complexity and main barriers are steps, pain, feeling groggy and nauseous and now needing one person assist for Adl and mobility needs. Pt has a supportive to be able to assist pt for all needs. Pt to go home when medically stable. Goals Grooming Goal Independent Dressing Goal Independent Toileting Goal Independent Bathing Goal Independent Toilet Transfer Goal Independent Shower Transfer Goal Independent Patient/Caregiver Education Goal Demonstrate Post-Op Precautions,Caregiver Independent Assisting Patient Days to Meet Goals 7 Frequency of Treatment Frequency Of Treatment Once a Day Treatment Plan OT Treatment Plan ADL Training,Functional Mobility,Patient/Family Education,Discharge Planning Other Treatment Recommendations and Next shower Treatment Focus Discharge Recommendations OT Discharge Recommendations Home with Assistance Home Equipment Needs shower chair Transportation Needs at Discharge Private Vehicle
--- NOTE | 2021-01-05 10:55 | PT.IIE ---
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 2 platform steps without rails Home Environment Standard Height Toilet,Walk in Shower Home Equipment Front Wheel Walker,Straight Cane Additional Social History Comment pt has an adjustable bed M2 PT-IP Current Condition Start: 01/05/21 12:45 Freq: NEEDED Status: Active Protocol: Document 01/05/21 10:55 AB (Rec: 01/05/21 13:03 AB [id number]) Physical Therapy Current Condition Current Condition Evaluation Date 01/05/21 Treatment Diagnosis s/p L4-5 TLIF; difficulty in walking Onset Date 01/04/21 M3 PT-IP Subjective Start: 01/05/21 12:45 Freq: NEEDED Status: Active Protocol: Document 01/05/21 10:55 AB (Rec: 01/05/21 13:03 AB [id number]) Subjective Physical Therapy Visit Type Type Initial Evaluation Visit Start Time 10:55 Visit Stop Time 11:23 Total Visit Minutes 28 Number of GLOBAL ACCOUNT EXECUTIVE Visits 0 Physical Therapy Visit Comments Patient Comments agreeable to do PT Therapy Pain Assessment Pain When Pain Assessed At Rest Pain Present Pain Present Pain Reported Location lower back Intensity 6 Scale Used increases to 7/10 with mobility Pain Management Techniques Apply Cold,Distraction, Modification of Treatment,Re- positioning,Timing of Activity with Medications M4 PT-IP Mobility and Gait Start: 01/05/21 12:45 Freq: NEEDED Status: Active Protocol: Document 01/05/21 10:55 AB (Rec: 01/05/21 13:03 AB [id number]) PT-Bed Mobility Assessment Rolling Type of Rolling Log Rolling Level of Assist Standby Assistance Supine to Sit Supine to Sit Standby Assistance Sit to Supine Sit to Supine Standby Assistance PT-Transfer Assessment Sit to and From Stand Sit to and from Stand Minimal Assistance,Moderate Assistance,1 Person Assistance ,Use of Upper Extremities Equipment Transfer Assistive Device Gait Belt,Front Wheeled Walker Orthotic/Prosthetic Devices or Brace: No Transfers Transfer Destination Bed,Chair Transfer Technique ambulated Transfer Ability Level of Assist Minimal Assistance,1 Person Assistance,Use of Upper Extremities Comments Mobility Comments pt able to recall back precautions. pt c/o increase back pain 10. completed sit to stand from chair min to mod A and cues. unsteady with hand transition to FWW. ambulated to bed using FWW ~ 12 ft min A. slow lemuel and with increase trunk guarding c/o 09/26 pain on back with mobility. pt completed log roll sit<>supine SBA. completed sit to stand from EOB min to mod A and cues and ambulated back to chair. refused further activities. positioned on the chair. ice pack provided. call light and table placed within reach. Gait Assessment Gait Gait Assistance Required: Minimum Assistance Distance (Feet) 12 Able to Maintain Weight Bearing Status Yes During Gait Assistive Devices Assistive Device Gait Belt,Front Wheeled Walker Orthotic/Prosthetic Devices or Brace: No Gait Deviations General Gait Pattern Decreased Stride Length, Decreased Feet Clearance Factors Limiting Gait Function Factors Limiting Gait Function Decreased Activity Tolerance, Decreased Strength,Limited Range of Motion,Pain,Poor Balance,Poor Safety Awareness Comments Gait Comments pls refer to mobility section for details PT-Balance Assessment Sitting Balance and Reactions Static Sitting Balance Ability Good Dynamic Sitting Balance Ability Good Standing Balance and Reactions Static Standing Balance Ability Fair Dynamic Standing Balance Ability Fair Device Used FWW M5 PT-IP Objective Assessments Start: 01/05/21 12:45 Freq: NEEDED Status: Active Protocol: Document 01/05/21 10:55 AB (Rec: 01/05/21 13:03 AB [id number]) Orientation Orientation/Cognition Level of Alertness Alert Orientation Name,Place,Situation Safety Awareness Decreased Safety Awareness Gross Range of Motion Lower Extremity ROM Assessment Within Functional Limits Strength Lower Extremity Strength Assessment Bilaterally Impaired Hip 3+/5 Knee 4-/5 Sensation Assessment Sensation Gross Sensation WNL Muscle Tone Muscle Tone WNL Yes M6 PT-IP Treatment Start: 01/05/21 12:45 Freq: NEEDED Status: Active Protocol: Document 01/05/21 10:55 AB (Rec: 01/05/21 13:03 AB [id number]) Physical Therapy Treatment Education Education Provided Precautions,Weight Bearing Status,Post-Op Packet,Safety M7 PT-IP Assessment and Plan Start: 01/05/21 12:45 Freq: NEEDED Status: Active Protocol: Document 01/05/21 10:55 AB (Rec: 01/05/21 13:03 AB [id number]) PT Summary Assessment and Plan Potential Rehabilitation Potential Good Status of Condition at Evaluation Evolving Summary Impairments Pain,ROM,Strength,Balance, Coordination,Sensation,Tone, Cognition,Bed Mobility, Transfers,Gait,Activity Tolerance Assessment Summary pt c/o increase pain affecting mobility and activity tolerance. pt requiring min to mod A with sit to stand and only tolerate 12 ft of ambulation using FWW. will continue to assess progress. pt plans to go home and his significant other will assist him at home. will conduct caregiver training when appropriate as well as stair climbing training. Goals Bed Mobility Goal Independent Transfer Goal Independent,Front Wheeled Walker Gait Goal Independent,Front Wheel Walker Gait Distance 150 Other Goals up/down 2 platform steps using FWW SBA Days to Meet Goals 5 Frequency of Treatment Frequency Of Treatment Twice a Day Treatment Plan Physical Therapy Treatment Plan Bed Mobility Training,Transfer Training,Gait Training, Therapeutic Exercise,Balance Retraining,Post Op Education, Discharge Planning,Hot or Cold Pack,Neuromuscular Re-ed, Coordination Retraining,Manual Therapy Other Recommendations and Next Treatment ambulation, stair climbing, Focus caregiver training Precautions Lumbar Precautions Log Roll,No Twisting,Limit Bending,Lifting Restriction of 10 lbs,Gait Belt above Incisional Area Recommendations To Nursing Amount of Assist Needed 1 Person Assist Discharge Recommendations PT Discharge Recommendations Home with Assistance Transportation Needs at Discharge Private Vehicle
[2021-01-05 11:05] VITALS: BP 122/77; PULSE 78; RESP 17; TEMP 36.4; O2SAT 95
--- NOTE | 2021-01-05 11:27 | CM.DANOTE ---
DCP: Case received, EMR reviewed and met with patient. Introduced self and role. Was able to obtain information regarding patient's baseline activity status prior to his surgery. DCP assessment completed with information currently available. Patient is a 65 year old male who admitted yesterday morning to the care of the orthopedic team. PCP: Dr. Schwartz. Payer: confirmed: [employer]. Patient came to the hospital via private vehicle for a surgical procedure. He had L4-5 posteo-lateral and posterior interbody fusion. Patient has had lumbar disc disorders and spinal stenosis secondary to an injury in 2019 he sustained when lifting a cover of a man hole at work. Met with patient in his room. He is alert and oriented. He was sitting up in his chair. Confirmed that he resides in [place] with his partner, Stacy Bennett. Patient is independent at his baseline. 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 P: DCP to continue to follow. Patient should be able to go home when he is medically stable and cleared by the therapy team. Jazmin Chambers RN/Senior Management Consultant Discharge Planning/Care Management CM Discharge Assessment Start: 01/05/21 11:22 Freq: Status: Active Protocol: Document 01/05/21 11:23 (Rec: 01/05/21 11:27 [id number]) Discharge Planning Assessment Assigned Environmental Studies Program Director Jazmin Chambers RN/Senior Management Consultant Advance Directives? No History Provided By Patient,Medical Record Prior Living Arrangements House Household Members significant other Type of transporation used prior to Drives own vehicle admit Independent with ADL's Yes Is patient alert and oriented? Yes Caregiver for Another No Barriers to Discharge No Discharge Plan Home Transportation Arrangement Significant other Referrals Initiated None needed Whiteboard Updated in Patient Room with Yes name and ext. # of Environmental Studies Program Director Review Status In Process Next Review Type Continued Stay Review Pre-Anesthesia Assessment Start: 01/01/21 13:40 Freq: Status: Active Protocol: Document 01/01/21 13:40 CAB (Rec: 01/01/21 14:32 CAB [id number]) Pre-Anesthesia Assessment PAC Comment Platelets 117 down from 171 on 06/02/19 Patient Information Reviewed Via Phone Assessment Assessment Completed With Patient Diagnostic Results BMP/CMP,CBC,EKG Comment Labs/EKG 12/14/20, COVID screen @ 01/01/21 Negative Primary Care Provider Chapito Schwartz Seen Specialist in Last 12 Months Yes Specialist Seen Orthopedist Primary Language Kazakh Podiatric Assistant Required No Height 5 ft 10 in Weight 180 lb Body Mass Index (BMI) 25.8 Hearing Ability Normal Visual Assist Glasses Dentition Type Teeth, Natural Present Barriers to Learning None Hx Anesthesia Reactions No Hx Family Anesthesia Reaction No Hx Malignant Hyperthermia No Hx Blood Transfusions No Anesthesia Review Requested No Shot Polisher No alcohol intake current alcohol intake frequency 0-2 drinks per day Smoking Status Current every day smoker Tobacco type cigarettes Smoking packs per day 0.5 Substance Use Type does not use Pain Present Pain Reported Musculoskeletal Symptoms Abnormal Gait,Back Pain, Difficulty Walking,Joint Pain History of Falling (Recent or History of No ) Patient is completely paralyzed or No completely immobile Mental Status Oriented to own ability Is patient on oxygen? No Does patient have KEEN/SOB No Hx Sleep Apnea No Currently Taking a Beta Isis No Can You Climb a Flight of Stairs Without Yes SOB Hx Chest Pain Yes: r/t to PE 2018, nothing since Hx SOB No Hx Syncope or Dizziness No Anti-Coagulant Therapy No Has a Regional Engineer No Cardiac Testing No Hx Pacemaker/ICD No Pacemaker Rep Required? No Cardiac Clearance Received Not Applicable Diet Type At Home Regular dysphagia No Urinary Catheter Present No Hx Urinary Self Catheterization No Diabetes No Hx Drug Resistant Organism No Presence of External or Internal Medical Yes: Left partial knee Devices Have you had any close contact with No someone diagnosed with COVID-19? Received a COVID vaccine? Yes: Moderna Received all doses? Yes Marital Status Single Lives With significant other Prior Living Arrangements House Support System Significant Other Does the Patient Have Assistance After Yes Surgery Patient Discharge Plan Description Return Home Comment Pt advised overnight length of stay per surgeon Feels Safe in Current Environment Yes Been Physically Hurt or Threatened By a No Person in Current Environment Do you have thoughts of harming yourself None or others? Are you currently considering suicide? No Do you have a plan to hurt yourself or No Plan others? Do You Have Any Spiritual Beliefs That No May Affect Your HC Choices? Do You Have Any Cultural Practices That No May Affect Your HC Choices? Comment Pentecostalism Who Can We Speak to About Patient's Care Family, friends Identifying Code for Release of Patient Declines to issue Information Health Care Proxy/Next of Kin Stacy Bennett (S.O.) Health Care Proxy Emergency Contact Name Stacy Bennett (S.O.) Emergency Contact Advance Directives? No Power of Director Medical Science No PAC Instructions Durable medical equipment, Medications to take/avoid, Nasal antibiotic,No ETOH/ petroleum product on skin DOS, NPO,Post-op transportation, Sturdy shoes/comfortable clothes,Do not bring valuables and remove jewelry
--- NOTE | 2021-01-05 14:20 | PT.IPTN ---
Current Diagnoses Spinal stenosis, lumbar region without neurogenic claudication (01/04/21) Intervertebral disc disorders with radiculopathy, lumbar region (01/04/21) Surgery Performed Operation Date: 01/04/21 14:30 Actual Procedures p L4-5 TLIF - Rg Rose MD Physical Therapy Treatment Note M2 PT-IP Current Condition Start: 01/05/21 12:45 Freq: NEEDED Status: Active Protocol: Document 01/05/21 10:55 AB (Rec: 01/05/21 13:03 AB [id number]) Physical Therapy Current Condition Current Condition Evaluation Date 01/05/21 Treatment Diagnosis s/p L4-5 TLIF; difficulty in walking Onset Date 01/04/21 M3 PT-IP Subjective Start: 01/05/21 12:45 Freq: NEEDED Status: Active Protocol: Document 01/05/21 14:20 AB (Rec: 01/05/21 15:48 AB [id number]) Subjective Physical Therapy Visit Type Type Treatment Note Visit Start Time 14:20 Visit Stop Time 14:46 Total Visit Minutes 26 Number of CHEMICAL CELL CHANGER Visits 0 Physical Therapy Visit Comments Patient Comments agreeable to do PT Therapy Pain Assessment Pain When Pain Assessed At Rest Pain Present Pain Present Pain Reported Location lower back Intensity 5 Scale Used Numeric (0 - 10) Pain Behaviors Facial Grimacing,Guarding, Wincing Pain Management Techniques Distraction,Modification of Treatment,Re-positioning, Timing of Activity with Medications M4 PT-IP Mobility and Gait Start: 01/05/21 12:45 Freq: NEEDED Status: Active Protocol: Document 01/05/21 14:20 AB (Rec: 01/05/21 15:48 AB [id number]) PT-Bed Mobility Assessment Rolling Level of Assist Standby Assistance Supine to Sit Supine to Sit Standby Assistance Sit to Supine Sit to Supine Standby Assistance PT-Transfer Assessment Sit to and From Stand Sit to and from Stand Minimal Assistance,Moderate Assistance,1 Person Assistance ,Use of Upper Extremities Equipment Transfer Assistive Device Gait Belt,Front Wheeled Walker Orthotic/Prosthetic Devices or Brace: No Transfers Transfer Destination Toilet Transfer Technique ambulated using FWW Transfer Ability Level of Assist Standby Assistance Comments Mobility Comments pt supine in bed and agreed to do PT. completed log roll supine to sit SBA. requested to use the toilet. completed sit to stand min to mod A and cues. continues to have difficulty with transitioning to standing and reaching for FWW. ambulated towards the toilet using FWW SBA. able to maintain standing using FWW for support SBA while doing toileting. ambulated from the toilet towards the sink using FWW SBA and able to maintain standing SBA whiel completing handwashing. ambulated to the chair using FWW SBA and rested . agreed to do stair climbing . ambulated ~ 40 ft using FWW towards platform step and completed using FWW CGA and cues. repeated x 2 sets. pt requested to go back to bed and ambulated back to the room using FWW sBA. completed sit to supine SBA. positioned in bed. call light and table placed within reach. caregiver training set up for tomorrow at 9 am. Gait Assessment Gait Gait Assistance Required: Standby Assistance Distance (Feet) 40 Able to Maintain Weight Bearing Status Yes During Gait Assistive Devices Assistive Device Gait Belt,Front Wheeled Walker Orthotic/Prosthetic Devices or Brace: No Gait Deviations General Gait Pattern Decreased Stride Length, Decreased Feet Clearance Factors Limiting Gait Function Factors Limiting Gait Function Decreased Activity Tolerance, Decreased Strength,Limited Range of Motion,Pain,Poor Balance Comments Gait Comments pls refer to mobility section for details Stair Climbing Assessment Evaluation Level of Assist On Stairs Contact Guard Assistance Devices Stair Climbing Assistive Devices Front Wheel Walker Technique/Endurance Stair Climbing Direction Ascend and Descend Stair Climbing Technique Step to Step Number of Steps Climbed 1 Stair Climbing Set # Repetitions (reps) 2 M5 PT-IP Objective Assessments Start: 01/05/21 12:45 Freq: NEEDED Status: Active Protocol: Document 01/05/21 10:55 AB (Rec: 01/05/21 13:03 AB [id number]) Orientation Orientation/Cognition Level of Alertness Alert Orientation Name,Place,Situation Safety Awareness Decreased Safety Awareness Gross Range of Motion Lower Extremity ROM Assessment Within Functional Limits Strength Lower Extremity Strength Assessment Bilaterally Impaired Hip 3+/5 Knee 4-/5 Sensation Assessment Sensation Gross Sensation WNL Muscle Tone Muscle Tone WNL Yes M6 PT-IP Treatment Start: 01/05/21 12:45 Freq: NEEDED Status: Active Protocol: Document 01/05/21 14:20 AB (Rec: 01/05/21 15:48 AB [id number]) Physical Therapy Treatment Education Education Provided Precautions,Safety M7 PT-IP Assessment and Plan Start: 01/05/21 12:45 Freq: NEEDED Status: Active Protocol: Document 01/05/21 14:20 AB (Rec: 01/05/21 15:48 AB [id number]) PT Summary Assessment and Plan Potential Rehabilitation Potential Good Summary Impairments Pain,ROM,Strength,Balance, Coordination,Bed Mobility, Transfers,Gait,Activity Tolerance Progress Towards Goals Slow Progress due to Pain Assessment Summary pt requiring min to mod with sit to stand, SBA with ambulation using FWW and continues to c/o increse LBP affecting mobility and activity tolerance. pt plans to go home with his significant other to assist him. Caregiver training set up for tomorrow 01/06/21 at 9 am. will continue to assess progress. Goals Bed Mobility Goal Independent Transfer Goal Independent,Front Wheeled Walker Gait Goal Independent,Front Wheel Walker Gait Distance 150 Other Goals up/down 2 platform steps using FWW SBA Days to Meet Goals 5 Frequency of Treatment Frequency Of Treatment Twice a Day Treatment Plan Physical Therapy Treatment Plan Bed Mobility Training,Transfer Training,Gait Training, Therapeutic Exercise,Balance Retraining,Post Op Education, Discharge Planning,Hot or Cold Pack,Neuromuscular Re-ed, Coordination Retraining,Manual Therapy Other Recommendations and Next Treatment caregiver training 01/06/21 at [facility] 9 am Precautions Lumbar Precautions Log Roll,No Twisting,Limit Bending,Lifting Restriction of 10 lbs,Gait Belt above Incisional Area Recommendations To Nursing Amount of Assist Needed 1 Person Assist Discharge Recommendations PT Discharge Recommendations Home with Assistance Transportation Needs at Discharge Private Vehicle
[2021-01-05 15:35] VITALS: BP 138/78; PULSE 84; RESP 18; TEMP 36.8; O2SAT 93
[2021-01-05] MEDS: OXYCODONE IR 5 MG TABLET 15 MG PO ×2 (17:56→20:55)
[2021-01-05 20:41] VITALS: BP 124/81; PULSE 82; RESP 19; TEMP 36.4; O2SAT 97
[2021-01-05] MEDS: SENNOSIDES 8.6 MG TABLET 17.2 MG PO (20:54)
[2021-01-06] MEDS: OXYCODONE IR 5 MG TABLET 15 MG PO ×3 (00:20→06:47)
[2021-01-06] MEDS: hydrOXYzine pamoate 25 MG CAPSULE PO ×5 (00:20→22:07)
[2021-01-06 00:42] VITALS: BP 114/79; PULSE 77; RESP 18; TEMP 36.7; O2SAT 94
[2021-01-06 07:20] VITALS: BP 117/74; PULSE 80; RESP 18; TEMP 36.8; O2SAT 95
[2021-01-06] MEDS: DOCUSATE 100 MG CAPSULE PO ×2 (08:36→22:07)
[2021-01-06] MEDS: ACETAMINOPHEN 325 MG TABLET 650 MG PO (08:36)
--- NOTE | 2021-01-06 09:35 | PT.IPTN ---
Current Diagnoses Spinal stenosis, lumbar region without neurogenic claudication (01/04/21) Intervertebral disc disorders with radiculopathy, lumbar region (01/04/21) Surgery Performed Operation Date: 01/04/21 14:30 Actual Procedures p L4-5 TLIF - Rg Rose MD Physical Therapy Treatment Note M2 PT-IP Current Condition Start: 01/05/21 12:45 Freq: NEEDED Status: Active Protocol: Document 01/06/21 09:00 SP (Rec: 01/06/21 10:28 SP [id number]) Physical Therapy Current Condition Current Condition Evaluation Date 01/05/21 Treatment Diagnosis s/p L4-5 TLIF; difficulty in walking Onset Date 01/04/21 M3 PT-IP Subjective Start: 01/05/21 12:45 Freq: NEEDED Status: Active Protocol: Document 01/06/21 09:00 SP (Rec: 01/06/21 10:28 SP [id number]) Subjective Physical Therapy Visit Type Type Treatment Note Visit Start Time 09:00 Visit Stop Time 09:35 Total Visit Minutes 35 Notes in room, completed caregiver training and provided all assist required throughout tx. Number of MANAGER PRIVACY Visits 1 Physical Therapy Visit Comments Patient Comments agreeable to do PT Patient Goals Return home with SO when pain controlled. Therapy Pain Assessment Pain When Pain Assessed At Rest Pain Present Pain Present Pain Reported Location lower back Intensity 5 Scale Used 5/10 at rest, 8/10 with mobility, premedicated. Pain Behaviors Facial Grimacing,Guarding Pain Management Techniques Distraction,Re-positioning, Timing of Activity with Medications M4 PT-IP Mobility and Gait Start: 01/05/21 12:45 Freq: NEEDED Status: Active Protocol: Document 01/06/21 09:00 SP (Rec: 01/06/21 10:28 SP [id number]) PT-Bed Mobility Assessment Rolling Type of Rolling Log Rolling Level of Assist Standby Assistance Sit to Supine Sit to Supine Standby Assistance Scooting Scooting Up and Down in Bed Standby Assistance PT-Transfer Assessment Sit to and From Stand Sit to and from Stand Minimal Assistance,Moderate Assistance,1 Person Assistance ,Use of Upper Extremities Equipment Transfer Assistive Device Gait Belt,Front Wheeled Walker Orthotic/Prosthetic Devices or Brace: No Transfers Transfer Destination Bed Transfer Technique ambulated using FWW Transfer Ability Level of Assist Standby Assistance,Contact Guard Assistance,Use of Upper Extremities Comments Mobility Comments Pt seated in chair when arrived. Ed and SO completion don gait belt on pt upper back . Sit>stand Heavy WB on BUE (R chair arm/L on FWW) Min-Mod Ax1 from SO w/ cues for B quad facilitation into extension fully due to weakness. Once in standing CGA further distance gait using FWW 70 ft, completed 2 PF step w/ FWW CGA with extra time for stand rest and cues for slow breath top/bottom step prior to gait for pain tolerance increased 8 /10 in LB. Step over step gait heavy WB BUE on FWW. When returned to room was able to void small amt in standing CGA usign FWW, ambulated to R side of bed stand>sit CGA, sit >R SL> supine SBA, good spinal alignment throughout mobility . Pt is ok to return home with SO to assist him when medically cleared. Gait Assessment Gait Gait Assistance Required: Standby Assistance Distance (Feet) 70 Able to Maintain Weight Bearing Status Yes During Gait Assistive Devices Assistive Device Gait Belt,Front Wheeled Walker Orthotic/Prosthetic Devices or Brace: No Gait Deviations General Gait Pattern Decreased Stride Length, Decreased Feet Clearance Factors Limiting Gait Function Factors Limiting Gait Function Decreased Activity Tolerance, Decreased Strength,Limited Range of Motion,Pain, Respiratory Distress Comments Gait Comments See mobility comments. Stair Climbing Assessment Evaluation Level of Assist On Stairs Contact Guard Assistance Devices Stair Climbing Assistive Devices Front Wheel Walker Technique/Endurance Stair Climbing Direction Ascend and Descend Stair Climbing Technique Step to Step Number of Steps Climbed 1 Stair Climbing Set # Repetitions (reps) 2 Comments Stair Climbing Comments see mobility comments PT-Balance Assessment Sitting Balance and Reactions Static Sitting Balance Ability Good Dynamic Sitting Balance Ability Good Standing Balance and Reactions Static Standing Balance Ability Fair Dynamic Standing Balance Ability Fair Device Used FWW M5 PT-IP Objective Assessments Start: 01/05/21 12:45 Freq: NEEDED Status: Active Protocol: Document 01/05/21 10:55 AB (Rec: 01/05/21 13:03 AB [id number]) Orientation Orientation/Cognition Level of Alertness Alert Orientation Name,Place,Situation Safety Awareness Decreased Safety Awareness Gross Range of Motion Lower Extremity ROM Assessment Within Functional Limits Strength Lower Extremity Strength Assessment Bilaterally Impaired Hip 3+/5 Knee 4-/5 Sensation Assessment Sensation Gross Sensation WNL Muscle Tone Muscle Tone WNL Yes M6 PT-IP Treatment Start: 01/05/21 12:45 Freq: NEEDED Status: Active Protocol: Document 01/06/21 09:00 SP (Rec: 01/06/21 10:28 SP [id number]) Physical Therapy Treatment Education Education Provided Precautions,Safety M7 PT-IP Assessment and Plan Start: 01/05/21 12:45 Freq: NEEDED Status: Active Protocol: Document 01/06/21 09:00 SP (Rec: 01/06/21 10:28 SP [id number]) PT Summary Assessment and Plan Potential Rehabilitation Potential Good Status of Condition at Evaluation Evolving Summary Impairments Pain,ROM,Strength,Balance, Coordination,Bed Mobility, Transfers,Gait,Activity Tolerance Progress Towards Goals Slow Progress due to Pain Assessment Summary pt continues to require min to mod with sit to stand due to BLE weakness coming to standing heavy WB BUE, SBA with ambulation, CGA during PF step mgt using FWW and continues to c/o increase LBP affecting mobility and activity tolerance. Pt is ok to return home with SO to assist him when pain better controlled and medically cleared. Goals Bed Mobility Goal Independent Transfer Goal Independent,Front Wheeled Walker Gait Goal Independent,Front Wheel Walker Gait Distance 150 Other Goals up/down 2 platform steps using FWW SBA Days to Meet Goals 5 Frequency of Treatment Frequency Of Treatment Twice a Day Treatment Plan Physical Therapy Treatment Plan Bed Mobility Training,Transfer Training,Gait Training, Therapeutic Exercise,Balance Retraining,Post Op Education, Discharge Planning,Hot or Cold Pack,Neuromuscular Re-ed, Coordination Retraining,Manual Therapy Other Recommendations and Next Treatment ambulated further distance Focus using FWW Precautions Lumbar Precautions Log Roll,No Twisting,Limit Bending,Lifting Restriction of 10 lbs,Gait Belt above Incisional Area Recommendations To Nursing Amount of Assist Needed 1 Person Assist Discharge Recommendations PT Discharge Recommendations Home with Assistance Transportation Needs at Discharge Private Vehicle
[2021-01-06] MEDS: HYDROMORPHONE 4 MG TABLET PO ×4 (09:46→22:07)
--- NOTE | 2021-01-06 09:47 | P.PN_ITS ---
Subjective Subjective Date Patient Seen: 01/06/21 Time Patient Seen: 09:47 Interval history: Pain continues to be severe despite increasing his oxycodone. Denies fever or chills. No nausea or vomiting. Patient has been able to get up to use restroom on his own. Exam Vital Signs (past 8 hours): - 01/06/21 07:20 Temperature 98.3 F Pulse Rate 80 Respiratory Rate 18 Blood Pressure 117/74 Pulse Oximetry 95 Oxygen Delivery Method Room Air Oxygen Flow Rate 0 Narrative Exam Narrative: 65-year-old male resting comfortably in bed in no apparent distress. Dressing has some scant drainage otherwise intact. Motor functions intact bilateral lower extremities. Sensation is grossly intact to light touch bilateral lower extremities. 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) Pulmonary embolism (2019) Seasonal allergies Surgical History History of mandibular surgery History of nasal septoplasty Hx of partial thyroidectomy Hx of sinus surgery Hx of tonsillectomy Status post left partial knee replacement (2019) Social History household members: significant other Smoking Status: Current every day smoker alcohol intake: current Assessment & Plan Post-op Postoperative Procedures: Procedures Operation Date: 01/04/21 14:30 Actual Procedure Side Surgeon p L4-5 TLIF Rg Rose MD Postoperative day: 2 Postoperative status narrative: Stable Postoperative plan narrative: Continue to work on pain control. Will switch to Dilaudid 4 mg q.4 hours as needed for pain. May consider burst of steroid this afternoon if delighted is not beneficial. Mobilize with physical therapy. , limit bending twisting lifting Disposition home later today or tomorrow.
--- NOTE | 2021-01-06 10:09 | OT.IP.TRT ---
Current Diagnoses Spinal stenosis, lumbar region without neurogenic claudication (01/04/21) Intervertebral disc disorders with radiculopathy, lumbar region (01/04/21) Surgery Performed Operation Date: 01/04/21 14:30 Actual Procedures p L4-5 TLIF - Rg Rose MD Occupational Therapy Treatment Note M2 OT-IP Current Condition Start: 01/05/21 13:05 Freq: Status: Active Protocol: Document 01/05/21 09:45 [facility] (Rec: 01/05/21 13:32 [facility] [id number]) Occupational Therapy Current Condition Current Condition Evaluation Date 01/05/21 Treatment Diagnosis S/p L4-5 TLIF Diagnosis Onset Date 01/04/21 Post Operative Precautions Lumbar Precautions Log Roll,No Twisting,Limit Bending,Lifting Restriction of 10 lbs,Gait Belt above Incisional Area M3 OT- IP Subjective and Pain Start: 01/05/21 13:05 Freq: Status: Active Protocol: Document 01/06/21 10:05 [facility] (Rec: 01/06/21 10:08 [facility] [id number]) OT- Subjective Occupational Therapy Visit Type Type Treatment Note Visit Start Time 09:56 Visit Stop Time 10:05 Total Visit Minutes 9 Occupational Therapy Visit Comments Patient Comments Pt is in too much pain and wanting to rest but agreed to go over LB dressing equipment. Patient/Caregiver Goals TO go home. OT Pain Assessment Pain When Pain Assessed During Mobility Pain Present Pain Present Pain Reported M4 OT- IP ADL's Start: 01/05/21 13:05 Freq: Status: Active Protocol: Document 01/06/21 10:05 [facility] (Rec: 01/06/21 10:08 [facility] [id number]) OT ADL-Dressing Comments OT Dressing Comments Pt agreed to be issued LB dressing equipment and able to show his Life partner how to use the items. OT ADL-Bathing Comments OT Bathing Comments Pt's Life Partner able to clam picker shower chair with handles for pt to use at home. M8 OT- IP Objective Assessments Start: 01/05/21 13:05 Freq: Status: Active Protocol: Document 01/05/21 09:45 [facility] (Rec: 01/05/21 13:32 [facility] [id number]) OT Gross Range of Motion Upper Extremity Range of Motion Assessment Within Functional Limits OT-Muscle Tone Assessment Muscle Tone WNL Yes M9 OT- IP Assessment and Plan Start: 01/05/21 13:05 Freq: Status: Active Protocol: Document 01/06/21 10:05 [facility] (Rec: 01/06/21 10:08 [facility] [id number]) OT Summary Assessment and Plan Potential Rehabilitation Potential Good Analytic Complexity at Evaluation Low Summary OT Impairments Pain,Balance,Functional Mobility,Grooming,Dressing, Toileting,Bathing,Toilet Transfers,Shower Transfers Progress Towards Goals Slow Progress due to Pain Assessment Summary Pt main barrier is pain at this time. Pt's Life partner is very supportive and able to assist pt for all needs. Able to issue and show pt and Life Partner LB dressing equipment, Pt to go home when medically stable. Frequency of Treatment Frequency Of Treatment Once a Day Treatment Plan OT Treatment Plan ADL Training,Functional Mobility,Patient/Family Education,Discharge Planning Other Treatment Recommendations and Next shower Treatment Focus Discharge Recommendations OT Discharge Recommendations Home with Assistance Transportation Needs at Discharge Private Vehicle
--- NOTE | 2021-01-06 10:59 | CM.DPC ---
DCP Possible d/c home Per Ortho PA, pt tolerated procedure well and ambulating with PT but continues to have pain management issues and possible d/c home this evening vs tomorrow pending pain control. Per PT, pt and spouse completed CG training this morning and recommending safe d/c home with spouse assist. Plan: SW to follow for plan of home with spouse assist when pain better controlled either this evening or tomorrow. IZABELLA Fernandez
[2021-01-06] MEDS: DEXAMETHASONE 4 MG/ML VIAL IV (12:24)
--- NOTE | 2021-01-06 13:56 | PT.IPTN ---
Current Diagnoses Spinal stenosis, lumbar region without neurogenic claudication (01/04/21) Intervertebral disc disorders with radiculopathy, lumbar region (01/04/21) Surgery Performed Operation Date: 01/04/21 14:30 Actual Procedures p L4-5 TLIF - Rg Rose MD Physical Therapy Treatment Note M2 PT-IP Current Condition Start: 01/05/21 12:45 Freq: NEEDED Status: Active Protocol: Document 01/06/21 13:35 SP (Rec: 01/06/21 14:52 SP [id number]) Physical Therapy Current Condition Current Condition Evaluation Date 01/05/21 Treatment Diagnosis s/p L4-5 TLIF; difficulty in walking Onset Date 01/04/21 M3 PT-IP Subjective Start: 01/05/21 12:45 Freq: NEEDED Status: Active Protocol: Document 01/06/21 13:35 SP (Rec: 01/06/21 14:52 SP [id number]) Subjective Physical Therapy Visit Type Type Treatment Note Visit Start Time 13:35 Visit Stop Time 13:56 Total Visit Minutes 21 Number of PACKAGE WORKER Visits 2 Physical Therapy Visit Comments Patient Comments agreeable to do PT Patient Goals Return home with SO when pain controlled. Therapy Pain Assessment Pain When Pain Assessed During Mobility Pain Present Pain Present Pain Reported Location lower back Intensity 4 Scale Used 4.5-5/10 during mobility Description With Movement Pain Behaviors Facial Grimacing,Guarding Pain Management Techniques Distraction,Re-positioning, Timing of Activity with Medications M4 PT-IP Mobility and Gait Start: 01/05/21 12:45 Freq: NEEDED Status: Active Protocol: Document 01/06/21 13:35 SP (Rec: 01/06/21 14:52 SP [id number]) PT-Bed Mobility Assessment Rolling Type of Rolling Log Rolling Level of Assist Contact Guard Assistance Supine to Sit Supine to Sit Standby Assistance Sit to Supine Sit to Supine Standby Assistance Scooting Scooting to Edge of Bed Standby Assistance Scooting Up and Down in Bed Standby Assistance PT-Transfer Assessment Sit to and From Stand Sit to and from Stand Moderate Assistance,1 Person Assistance,Use of Upper Extremities Equipment Transfer Assistive Device Gait Belt,Front Wheeled Walker Orthotic/Prosthetic Devices or Brace: No Transfers Transfer Destination Bed Transfer Technique ambulated using FWW Transfer Ability Level of Assist Standby Assistance,Contact Guard Assistance,Use of Upper Extremities Comments Mobility Comments Completed LR R> sitting with use of bed rails and bed push from HOB flat, scoot to EOB SBA. PACKAGE WORKER donned gait belt on upper back under arms. Sit> stand Mod A x1 due to BLE weakness and pain reported coming to standing, cued for B quad facilitation to maintain knee extension. Pt CGA initially once in standing use of fWW, gait around room, cued decrease UT recruitment, decrease BUE WB on FWW this tx Mod more relaxed shld, further gait into hallway 45 ft with 2 stop stand rest and slow breath SBA, pt returned to bathroom, voided in standing SBA, walked to sink washed hands with occasional contact sink for LB pain relief, SBA. Pt walked back to R EOB w/FWW stand>sit>R SL> supine, SBA. PACKAGE WORKER assisted pillow under B LE for back comfort. Pt had call light and all needs in reach before left. Armed bed to standing notification assist for nursing for safety. Pt is ok to return home with SO to assist him when medically cleared. Gait Assessment Gait Gait Assistance Required: Standby Assistance Distance (Feet) 100 Able to Maintain Weight Bearing Status Yes During Gait Assistive Devices Assistive Device Gait Belt,Front Wheeled Walker Orthotic/Prosthetic Devices or Brace: No Gait Deviations General Gait Pattern Decreased Stride Length Factors Limiting Gait Function Factors Limiting Gait Function Decreased Activity Tolerance, Decreased Strength,Limited Range of Motion,Pain, Respiratory Distress Comments Gait Comments Receiprocal stepping use of FWW, moderate BUE WB on fWW. PT-Balance Assessment Sitting Balance and Reactions Static Sitting Balance Ability Good Dynamic Sitting Balance Ability Good Standing Balance and Reactions Static Standing Balance Ability Good Dynamic Standing Balance Ability Fair Device Used FWW M5 PT-IP Objective Assessments Start: 01/05/21 12:45 Freq: NEEDED Status: Active Protocol: Document 01/05/21 10:55 AB (Rec: 01/05/21 13:03 AB [id number]) Orientation Orientation/Cognition Level of Alertness Alert Orientation Name,Place,Situation Safety Awareness Decreased Safety Awareness Gross Range of Motion Lower Extremity ROM Assessment Within Functional Limits Strength Lower Extremity Strength Assessment Bilaterally Impaired Hip 3+/5 Knee 4-/5 Sensation Assessment Sensation Gross Sensation WNL Muscle Tone Muscle Tone WNL Yes M6 PT-IP Treatment Start: 01/05/21 12:45 Freq: NEEDED Status: Active Protocol: Document 01/06/21 13:35 SP (Rec: 01/06/21 14:52 SP [id number]) Physical Therapy Treatment Education Education Provided Precautions,Safety M7 PT-IP Assessment and Plan Start: 01/05/21 12:45 Freq: NEEDED Status: Active Protocol: Document 01/06/21 13:35 SP (Rec: 01/06/21 14:52 SP [id number]) PT Summary Assessment and Plan Potential Rehabilitation Potential Good Status of Condition at Evaluation Evolving Summary Impairments Pain,ROM,Strength,Balance, Coordination,Bed Mobility, Transfers,Gait,Activity Tolerance Progress Towards Goals Progressing Toward Goals,Slow Progress due to Pain,Slow Progress due to Activity Tolerance Assessment Summary SBA bedmob, Mod A x1 coming to standing, lacking quad strength and reports of pain. SBA during gait using FWW. Pt would benefit from HHPT to progress strength into sit> stand and functional mobility using FWW, discussed and pt agreeable. Pt is ok to return home when medically cleared. Goals Bed Mobility Goal Independent Transfer Goal Independent,Front Wheeled Walker Gait Goal Independent,Front Wheel Walker Gait Distance 150 Other Goals up/down 2 platform steps using FWW SBA Days to Meet Goals 5 Frequency of Treatment Frequency Of Treatment Twice a Day Treatment Plan Physical Therapy Treatment Plan Bed Mobility Training,Transfer Training,Gait Training, Therapeutic Exercise,Balance Retraining,Post Op Education, Discharge Planning,Hot or Cold Pack,Neuromuscular Re-ed, Coordination Retraining,Manual Therapy Other Recommendations and Next Treatment Sit>stand, ambulated further Focus distance using FWW w/ decrease UE WB. Precautions Lumbar Precautions Log Roll,No Twisting,Limit Bending,Lifting Restriction of 10 lbs,Gait Belt above Incisional Area Recommendations To Nursing Amount of Assist Needed 1 Person Assist Discharge Recommendations PT Discharge Recommendations Home with Assistance Transportation Needs at Discharge Private Vehicle
--- NOTE | 2021-01-06 13:56 | PT.IPTN ---
Current Diagnoses Spinal stenosis, lumbar region without neurogenic claudication (01/04/21) Intervertebral disc disorders with radiculopathy, lumbar region (01/04/21) Surgery Performed Operation Date: 01/04/21 14:30 Actual Procedures p L4-5 TLIF - Rg Rose MD Physical Therapy Treatment Note M2 PT-IP Current Condition Start: 01/05/21 12:45 Freq: NEEDED Status: Active Protocol: Document 01/06/21 13:35 SP (Rec: 01/06/21 14:52 SP [id number]) Physical Therapy Current Condition Current Condition Evaluation Date 01/05/21 Treatment Diagnosis s/p L4-5 TLIF; difficulty in walking Onset Date 01/04/21 M3 PT-IP Subjective Start: 01/05/21 12:45 Freq: NEEDED Status: Active Protocol: Document 01/06/21 13:35 SP (Rec: 01/06/21 14:52 SP [id number]) Subjective Physical Therapy Visit Type Type Treatment Note Visit Start Time 13:35 Visit Stop Time 13:56 Total Visit Minutes 21 Number of STITCH BURNISHER Visits 2 Physical Therapy Visit Comments Patient Comments agreeable to do PT Patient Goals Return home with SO when pain controlled. Therapy Pain Assessment Pain When Pain Assessed During Mobility Pain Present Pain Present Pain Reported Location lower back Intensity 4 Scale Used 4.5-5/10 during mobility Description With Movement Pain Behaviors Facial Grimacing,Guarding Pain Management Techniques Distraction,Re-positioning, Timing of Activity with Medications M4 PT-IP Mobility and Gait Start: 01/05/21 12:45 Freq: NEEDED Status: Active Protocol: Document 01/06/21 13:35 SP (Rec: 01/06/21 14:52 SP [id number]) PT-Bed Mobility Assessment Rolling Type of Rolling Log Rolling Level of Assist Contact Guard Assistance Supine to Sit Supine to Sit Standby Assistance Sit to Supine Sit to Supine Standby Assistance Scooting Scooting to Edge of Bed Standby Assistance Scooting Up and Down in Bed Standby Assistance PT-Transfer Assessment Sit to and From Stand Sit to and from Stand Moderate Assistance,1 Person Assistance,Use of Upper Extremities Equipment Transfer Assistive Device Gait Belt,Front Wheeled Walker Orthotic/Prosthetic Devices or Brace: No Transfers Transfer Destination Bed Transfer Technique ambulated using FWW Transfer Ability Level of Assist Standby Assistance,Contact Guard Assistance,Use of Upper Extremities Comments Mobility Comments Completed LR R> sitting with use of bed rails and bed push from HOB flat, scoot to EOB SBA. STITCH BURNISHER donned gait belt on upper back under arms. Sit> stand Mod A x1 due to BLE weakness and pain reported coming to standing, cued for B quad facilitation to maintain knee extension. Pt CGA initially once in standing use of fWW, gait around room, cued decrease UT recruitment, decrease BUE WB on FWW this tx Mod more relaxed shld, further gait into hallway 45 ft with 2 stop stand rest and slow breath SBA, pt returned to bathroom, voided in standing SBA, walked to sink washed hands with occasional contact sink for LB pain relief, SBA. Pt walked back to R EOB w/FWW stand>sit>R SL> supine, SBA. STITCH BURNISHER assisted pillow under B LE for back comfort. Pt had call light and all needs in reach before left. Armed bed to standing notification assist for nursing for safety. Pt is ok to return home with SO to assist him when medically cleared. Gait Assessment Gait Gait Assistance Required: Standby Assistance Distance (Feet) 100 Able to Maintain Weight Bearing Status Yes During Gait Assistive Devices Assistive Device Gait Belt,Front Wheeled Walker Orthotic/Prosthetic Devices or Brace: No Gait Deviations General Gait Pattern Decreased Stride Length Factors Limiting Gait Function Factors Limiting Gait Function Decreased Activity Tolerance, Decreased Strength,Limited Range of Motion,Pain, Respiratory Distress Comments Gait Comments Receiprocal stepping use of FWW, moderate BUE WB on fWW. PT-Balance Assessment Sitting Balance and Reactions Static Sitting Balance Ability Good Dynamic Sitting Balance Ability Good Standing Balance and Reactions Static Standing Balance Ability Good Dynamic Standing Balance Ability Fair Device Used FWW M5 PT-IP Objective Assessments Start: 01/05/21 12:45 Freq: NEEDED Status: Active Protocol: Document 01/05/21 10:55 AB (Rec: 01/05/21 13:03 AB [id number]) Orientation Orientation/Cognition Level of Alertness Alert Orientation Name,Place,Situation Safety Awareness Decreased Safety Awareness Gross Range of Motion Lower Extremity ROM Assessment Within Functional Limits Strength Lower Extremity Strength Assessment Bilaterally Impaired Hip 3+/5 Knee 4-/5 Sensation Assessment Sensation Gross Sensation WNL Muscle Tone Muscle Tone WNL Yes M6 PT-IP Treatment Start: 01/05/21 12:45 Freq: NEEDED Status: Active Protocol: Document 01/06/21 13:35 SP (Rec: 01/06/21 14:52 SP [id number]) Physical Therapy Treatment Education Education Provided Precautions,Safety M7 PT-IP Assessment and Plan Start: 01/05/21 12:45 Freq: NEEDED Status: Active Protocol: Document 01/06/21 13:35 SP (Rec: 01/06/21 14:52 SP [id number]) PT Summary Assessment and Plan Potential Rehabilitation Potential Good Status of Condition at Evaluation Evolving Summary Impairments Pain,ROM,Strength,Balance, Coordination,Bed Mobility, Transfers,Gait,Activity Tolerance Progress Towards Goals Progressing Toward Goals,Slow Progress due to Pain,Slow Progress due to Activity Tolerance Assessment Summary SBA bedmob, Mod A x1 coming to standing, lacking quad strength and reports of pain. SBA during gait using FWW. Pt would benefit from HHPT to progress strength into sit> stand and functional mobility strengthening in standing using FWW for support needed, discussed and pt agreeable. Pt is ok to return home when medically cleared. Goals Bed Mobility Goal Independent Transfer Goal Independent,Front Wheeled Walker Gait Goal Independent,Front Wheel Walker Gait Distance 150 Other Goals up/down 2 platform steps using FWW SBA Days to Meet Goals 5 Frequency of Treatment Frequency Of Treatment Twice a Day Treatment Plan Physical Therapy Treatment Plan Bed Mobility Training,Transfer Training,Gait Training, Therapeutic Exercise,Balance Retraining,Post Op Education, Discharge Planning,Hot or Cold Pack,Neuromuscular Re-ed, Coordination Retraining,Manual Therapy Other Recommendations and Next Treatment Sit>stand, ambulated further Focus distance using FWW w/ decrease UE WB. Precautions Lumbar Precautions Log Roll,No Twisting,Limit Bending,Lifting Restriction of 10 lbs,Gait Belt above Incisional Area Recommendations To Nursing Amount of Assist Needed 1 Person Assist Discharge Recommendations PT Discharge Recommendations Home with Assistance,Home with 24/7 Assist Available,Home Health Transportation Needs at Discharge Private Vehicle
--- NOTE | 2021-01-06 14:58 | PC.NURSE ---
Patient given 4mg of po dilaudid and helpful. He is back to bed and resting.
[2021-01-06 15:39] VITALS: BP 115/73; PULSE 77; RESP 18; TEMP 36.8; O2SAT 94
[2021-01-06] MEDS: SENNOSIDES 8.6 MG TABLET 17.2 MG PO (22:08)
[2021-01-07 01:59] VITALS: BP 114/75; PULSE 70; RESP 18; TEMP 37.2; O2SAT 97
[2021-01-07] MEDS: hydrOXYzine pamoate 25 MG CAPSULE PO ×3 (02:26→10:33)
[2021-01-07] MEDS: HYDROMORPHONE 4 MG TABLET PO ×3 (02:26→10:32)
[2021-01-07] MEDS: DOCUSATE 100 MG CAPSULE PO (09:40)
--- NOTE | 2021-01-07 10:21 | P.DS_ITS ---
History of Present Illness History of Present Illness Date Patient Seen: 01/07/21 Time Patient Seen: 07:40 Chief complaint: Low back pain s/p TLIF Narrative: The patient is complaining of moderate low back pain this morning. Changing to oral Dilaudid has helped his pain significantly. He denies any new numbness or tingling. No nausea or vomiting. No fevers, chills, night sweats. Overall he is feeling better and would like to be discharged home today. He is working with physical therapy. Discharge Providers Provider Date of admission: 01/04/21 12:11 Discharge Date: 01/07/21 Primary care physician: Chapito Schwartz MD Consults: 01/04/21 13:08 Consult to Respiratory Therapy Evaluate & Treat Comment: Physician Instructions: Evaluate and treat 01/04/21 19:43 Consult to Occupational Therapy Evaluate & Treat Comment: Physician Instructions: Evaluate and treat Consult to Physical Therapy Evaluate & Treat Comment: Physician Instructions: Evaluate and Treat Discharge provider: Carmen Grimes PA-C Summary Hospital Course Discharge Diagnosis: 1. L4-5 far lateral disc herniation 2. L4-5 spinal stenosis with radiculopathy Hospital Course: Procedure: 1. L4-5 Postero-lateral and posterior interbody fusion 2. L4-5 interbody cage placement. 3. L4-5 decompressive laminectomy with bilateral facetecomies 4. L4-5 Posterior non-segmental instrumentation 5. [place] of bone marrow from iliac crest 6. Utilization of microsurgical technique and operating microscope Same procedure as scheduled: Yes Indications: Patient has been having chronic back pain and worsening lumbar radiculopathy. Patient failed multiple conservative management with worsening pain weakness and numbness in her lower extremity.? Patient has been having difficulty performing activity of daily living.? After discussing risks benefits of treatment options, patient elected proceed with surgery. Surgeon: Rg Rose Aerospace Manager: aCrmen Grimes Click Yes if Unassisted: No Anesthesia Type: General Operative Notes Closure Type: primary Specimen(s): none sent Prosthetic devices, grafts, tissues, transplants, or devices: Globus revolve screws, Rise cage Applied: catheter Estimated Blood Loss (mL): 50 Blood products transfused: none The patient was admitted to the hospital for the above listed procedure for the above listed diagnosis. The patient consented to the procedure, and was taken back to the OR on 01/04/21. Following the procedure, the patient has been in stable condition, and has been convalescing appropriately. The patient has successfully worked on mobilizing with physical therapy, and is avoiding bending, lifting, twisting. Their pain was not well controlled with intiial medications, but changed to oral dilaudid and improving, and mechanical DVT prophylaxis has been implemented during their hospital stay. Throughout their time in the hospital, the patient has denied fevers, chills, night sweats, chest pain, shortness of breath, or urinary retention. The patient will be discharged in stable condition today to home. Standard spine protocols: limit bending, lifting, twisting. Weight-bearing as tolerated with front-wheeled walker. Dressing should remain dry and in place until their follow up visit in the office in approximately 10-14 days (ok to change if it becomes wet, soiled, saturated). Exam Vital Signs (past 8 hours): Oxygen Delivery Method Room Air Oxygen Flow Rate 0 Narrative Exam Narrative: Pleasant 65-year-old male, resting comfortably in bed, no acute distress. His dressing demonstrates some scant drainage bilaterally, no surrounding erythema or induration. Bilateral lower extremity motor functions are grossly intact. He is grossly intact to light touch in bilateral lower extremities. Bilateral calves are soft, nontender palpation. 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 Pain control marginal, but improving. Plan of Treatment: -Limit bending, lifting, twisting. Weightbearing as tolerated with front wheel walker. -continue with current pain regimen and associated constipation medications. -mobilized with physical therapy -plan to DC home today after cleared by PT. Discharge Plan Discharge Plan Patient Disposition: Home Discharge orders & Medications Prescriptions: New acetaminophen 500 mg capsule 500 mg PO Q4H MDD max 6 tabs per day PRN (Reason: Pain, Mild (1-3)) Qty: 90 RF: 0 docusate sodium 100 mg Capsule 100 mg PO BID PRN (Reason: constipation) Qty: 30 RF: 0 hydromorphone 4 mg Tablet 4 mg PO Q4HR PRN (Reason: Pain, Severe (7-10)) Qty: 42 RF: 0 hydroxyzine pamoate 25 mg Capsule 25 mg PO Q4HR PRN (Reason: spasms, Nausea And Vomiting) Qty: 40 RF: 0 Continued ibuprofen 200 mg Tablet 600 mg PO DAILY PRN (Reason: Pain (Scale Score 1-3)) RF: 0 Follow up/Referrals: Chapito Schwartz MD [Primary Care Provider] - Rg Rose MD [Physician] - (10-14 days for a postop visit) Diet/Activity/Treatments Diet: Diet as Tolerated and Regular Activity: Limit bending, lifting, twisting. Weightbearing as tolerated with front wheeled walker. Cold/Heat Therapy: Use ice as needed for pain Skin/Wound/Dressing Care Report to your healthcare provider any signs of infection, such as:: chills, fever, night sweats, unusual drainage and unusual redness Dressing: Keep dressing intact until urine office visit. Please call office if dressing becomes wet, swell, saturated. Visit Report/Discharge Packet Instructions: DI for Constipation, How to Prevent Falls, DI for Prescription Opioid Use, DI for Taking Pain Medication, DI for Transforaminal Lumbar Interbody Fusion Stand Alone Forms: Surgery Discharge Discharge Data Primary Care Provider: Chapito Schwartz Attending Provider: Rg Rose
--- NOTE | 2021-01-07 10:38 | OT.IP.TRT ---
Current Diagnoses Spinal stenosis, lumbar region without neurogenic claudication (01/04/21) Intervertebral disc disorders with radiculopathy, lumbar region (01/04/21) Surgery Performed Operation Date: 01/04/21 14:30 Actual Procedures p L4-5 TLIF - Rg Rose MD Occupational Therapy Treatment Note M2 OT-IP Current Condition Start: 01/05/21 13:05 Freq: Status: Discharge Protocol: Document 01/05/21 09:45 [facility] (Rec: 01/05/21 13:32 [facility] [id number]) Occupational Therapy Current Condition Current Condition Evaluation Date 01/05/21 Treatment Diagnosis S/p L4-5 TLIF Diagnosis Onset Date 01/04/21 Post Operative Precautions Lumbar Precautions Log Roll,No Twisting,Limit Bending,Lifting Restriction of 10 lbs,Gait Belt above Incisional Area M3 OT- IP Subjective and Pain Start: 01/05/21 13:05 Freq: Status: Discharge Protocol: Document 01/07/21 11:46 [facility] (Rec: 01/07/21 11:53 [facility] [id number]) OT- Subjective Occupational Therapy Visit Type Type Treatment Note Visit Start Time 10:05 Visit Stop Time 10:38 Total Visit Minutes 33 Occupational Therapy Visit Comments Patient Comments Pt wanting to shower. Patient/Caregiver Goals To go home. M4 OT- IP ADL's Start: 01/05/21 13:05 Freq: Status: Discharge Protocol: Document 01/07/21 11:46 [facility] (Rec: 01/07/21 11:53 [facility] [id number]) OT ADL-Dressing General Eval Lower Body Dressing Ability Maximum Assistance Areas Needing Assistance Underpants/Brief,Pants/Shorts, Socks,Shoes Comments OT Dressing Comments Pt just wanting assist for LB dressing needs and just wants to go home. Pt's Life Partner able to safely assist pt for all dressing needs. Suggested would be easier to put on his underwear and pants on over his feet and then stand to pull up both. OT ADL-Bathing Bathing Type Bathing Type Shower General Evaluation Bathing Ability Moderate Assistance Areas Needing Assistance Wash/Dry Back,Wash/Dry Perineal Area,Wash/Dry Lower Extremities Devices Bathing Equipment Shower Chair with Arms Comments OT Bathing Comments Pt's able to safely assist pt for all showering needs. M5 OT- IP IADL's Start: 01/05/21 13:05 Freq: Status: Discharge Protocol: Document 01/05/21 09:45 [facility] (Rec: 01/05/21 13:32 [facility] [id number]) OT-Instrumental Activities of Daily Living Home Safety Awareness Awareness of Need for Assistance at Home Good Awareness Ability to Problem Solve Emergency Able to Problem Solve Situations Home Safety Comments Pt's to be home to assist especially as pt feeling groggy from having pain medications. M6 OT- IP Functional Cognition Start: 01/05/21 13:05 Freq: Status: Discharge Protocol: Document 01/05/21 09:45 [facility] (Rec: 01/05/21 13:32 [facility] [id number]) Cognitive Factors Limiting Selfcare Function Cognitive Ability Level of Alertness Alert Patient Orientation Name,Place,Situation Attention Span Ability Capable of Focused Attention, Capable of Sustained Attention Ability to Follow Commands Able to Follow One Step Commands Safety Awareness Underestimates Need for Assistance Cognitive Comments Cognitive Assessment Comments Pt a bit groggy form pain medication and needing cues for mobility safety needs. VC to push up from the bed or armrests of the recliner versus on the FWW. Edcuated pt if pushing on the FWW to make sure that his holds it in place for him. OT- Vision and Hearing OT- Hearing Assessment OT- Hearing Assessment WFL OT- Vision Assessment Visual Acuity Glasses All The Time M7 OT- IP Mobility and Balance Start: 01/05/21 13:05 Freq: Status: Discharge Protocol: Document 01/07/21 11:46 [facility] (Rec: 01/07/21 11:53 [facility] [id number]) OT-Transfer Assessment Sit to and From Stand Sit to and from Stand Contact Guard Assistance, Moderate Assistance,Maximum Assistance Transfers Transfer Ability Contact Guard Assistance, Minimal Assistance Technique Transfer Destination Bed,Chair,Shower Stall Transfer Technique Stand Step Pivot Devices Transfer Assistive Devices Gait Belt,Front Wheeled Walker Comments Mobility Comments Pt having difficulty to come from sit to stand and buckled when trying to stand from the [facility] while in the shower. When asked, pt states due to pain versus weakness. Explained to pt to be sure not to stop when coming to stand and have his assist with the gait belt and always have a hand on him . M8 OT- IP Objective Assessments Start: 01/05/21 13:05 Freq: Status: Discharge Protocol: Document 01/05/21 09:45 [facility] (Rec: 01/05/21 13:32 [facility] [id number]) OT Gross Range of Motion Upper Extremity Range of Motion Assessment Within Functional Limits OT-Muscle Tone Assessment Muscle Tone WNL Yes M9 OT- IP Assessment and Plan Start: 01/05/21 13:05 Freq: Status: Discharge Protocol: Document 01/07/21 11:46 [facility] (Rec: 01/07/21 11:53 [facility] [id number]) OT Summary Assessment and Plan Potential Rehabilitation Potential Good Analytic Complexity at Evaluation Low Summary OT Impairments Pain,Balance,Functional Mobility,Grooming,Dressing, Toileting,Bathing,Toilet Transfers,Shower Transfers Progress Towards Goals Slow Progress due to Pain Assessment Summary Pt's Life Partner present for caregiver training and able to assist pt for all ADL and mobility needs with good safety. Pt to go home today. Goals Grooming Goal Independent Dressing Goal Independent Toileting Goal Independent Bathing Goal Independent Toilet Transfer Goal Independent Shower Transfer Goal Independent Patient/Caregiver Education Goal Demonstrate Post-Op Precautions,Caregiver Independent Assisting Patient Days to Meet Goals 7 Frequency of Treatment Frequency Of Treatment Once a Day Discharge Recommendations OT Discharge Recommendations Home with Assistance Transportation Needs at Discharge Private Vehicle
--- NOTE | 2021-01-07 10:56 | PC.NURSE ---
Pt is dressed and ready for discharge home with S.O. HL removed. Dsg to back changed to [facility]. Went over d/c instructions with Pt and S.O. reviewed stroke education, s/s of infection, no driving while on narcotics. Drink plenty of fluids to prevent constipation, do not take over 3000mg of Acetaminophen within 24 hrs. Follow back precautions-limit bending, lifting, and twisting, and follow up as scheduled. Pt denies further questions and was taken out via w/c by ALTERATION MANAGER to pov with S.O. and all belongings.
--- NOTE | 2021-01-07 11:05 | PT-IP ANOTE ---
Attempted to see pt at 11:05 AM, pt refused PT stating that he has no further needs or questions and wants to go home.
--- NOTE | 2021-01-07 14:04 | CM.DPC ---
DCP Discharge Home Per Ortho, pt's pain better controlled and pt now medically stable to d/c home with assist and no identified barriers to discharge. Per PT/OT, still recommending safe d/c home with SO assist. Per RN, d/c instructions provided to pt and SO and no concerns and pt was able to d/c home via SO POV. Plan: Patient to d/c home via Sig Other POV and assist and no further SW needs at this time. IZABELLA Fernandez
== END 2021-01-07 11:00 | disposition home or self-care (01) ==
LOC: OR 12:12 → AC 12:16
PROVIDERS: Admitting Provider Orthopaedic Surgery Orthopaedic Surgery of the Spine; Family Provider Physician Assistant; PCP Family Medicine; Referring Provider Physical Medicine & Rehabilitation; Visit Provider Orthopaedic Surgery Orthopaedic Surgery of the Spine
PROC: (CPT 20939; principal; 2021-01-04 14:30)
DX: M48.061 Spinal stenosis, lumbar region without neurogenic claudication (principal); M51.16 Intervertebral disc disorders with radiculopathy, lumbar region; F17.210 Nicotine dependence, cigarettes, uncomplicated; Z86.718 Personal history of other venous thrombosis and embolism
CPT/HCPCS: 20939; 22853; 63047; 22633; 22840; 72100; 76000; 82962; 94762; 97116; 97162; 97165; 97530; 97535; C1776; G0378; C9290; J0171; J1100; J1170; J2250; J2405; J2704; J3010

== ENCOUNTER 2021-01-08 20:17 | Inpatient (IN) | payer OTHER, SELFPAY ==
[2021-01-04 19:44] VITALS: BMI 25.8
[2021-01-08] VITALS (13 sets, daily range): BP systolic 125–206; BP diastolic 76–105; PULSE 113–131; RESP 10–30; TEMP 37.2–37.9; O2SAT 91–97; BMI 25.8
--- NOTE | 2021-01-08 20:45 | ED_ITS ---
HPI - Chest Pain General Chief Complaint: Chest Pain Stated Complaint: chest pain , short of breath s/p surgery Time Seen by Provider: 01/08/21 20:25 Source: patient Mode of arrival: Wheelchair Limitations: no limitations History of Present Illness HPI narrative: 65-year-old gentleman with a history of a DVT in the right calf a year ago prior history of pulmonary emboli not currently anticoagulated who underwent spinal surgery January 04. He comes in today complaining of pain and tenderness in his left calf and a sensation that he has pulmonary embolism again recurrent. He notes that he had some numbness and tingling down into the left calf earlier today that has resolved. The neuropathic pain sensation that he had had prior to surgery is not noticeable at this time. He is tachycardic has a low-grade fever not complaining of cough but he does complain that he has tachypneic and dyspneic. No abdominal pain. He is on narcotics for his postoperative pain and is still having some tenderness that seems surgically appropriate. He has not had any vomiting or diarrhea he complains of low-grade headache. Related Data Home Medications Medication Instructions Recorded Confirmed ibuprofen 200 mg tablet 600 mg PO DAILY PRN 01/04/21 01/04/21 Previous Rx's Medication Instructions Recorded acetaminophen 500 mg capsule 500 mg PO Q4H PRN #90 cap MDD max 01/07/21 6 tabs per day docusate sodium 100 mg capsule 100 mg PO BID PRN #30 cap 01/07/21 hydromorphone 4 mg tablet 4 mg PO Q4HR PRN #42 tab 01/07/21 hydroxyzine pamoate 25 mg capsule 25 mg PO Q4HR PRN #40 cap 01/07/21 Allergies Allergy/AdvReac Type Severity Reaction Status Date / Time Penicillins Allergy Mild Rash Verified 01/01/21 14:04 bee venom protein (honey bee) AdvReac Intermediate Swelling Verified 01/01/21 14:04 at site Review of Systems Review of Systems Narrative: Remainder of complete review of systems is otherwise unremarkable except for that included in the HPI. Patient History Medical History Arthritis Deep vein thrombosis of lower extremity History of deep venous thrombosis (DVT) of distal vein of right lower extremity History of osteosarcoma Osteosarcoma (~2000) Pulmonary embolism (2019) Pulmonary embolism on right Seasonal allergies Surgical History H/O lumbosacral spine surgery History of mandibular surgery History of nasal septoplasty Hx of partial thyroidectomy Hx of sinus surgery Hx of tonsillectomy Status post left partial knee replacement (2019) Family History (Updated 01/09/21 @ 01:59 by MARI Reed) Brother Cancer Father Old age Mother Alive and well Social History household members: significant other Smoking Status: Current every day smoker alcohol intake: current Smoking Status: Current every day smoker alcohol intake frequency: a few times a week Substance Use Type: does not use Exam Narrative Exam Narrative: General: Uncomfortable appearing gentleman, Able to give a complete and coherent history. Well-nourished well-developed HEENT: Moist mucous membranes, normal sclera with reactive pupils, Neck: No JVD, supple Respiratory: Lungs are clear to auscultation, no wheezing no rales no rhonchi. Full and symmetrical air movement with tachypnea Cardiac: Tachycardic with Regular rate and rhythm no murmurs no bruits Abdomen: Soft, nontender, good bowel tones, no flank pain Skin: Warm and dry, no rashes Spine: Lumbar surgical site is healing nicely. Yanelis in place no drainage no swelling and no specific erythema. Right hip bone marrow collection site healing nicely as well Neurologic: Grossly neurologically intact with no obvious asymmetries or abnormalities Extremities: No trauma, well perfused, mild tenderness in the right calf without obvious significant asymmetric edema Psych: Cooperative, appropriate insight and affect Initial Vital Signs Initial Vital Signs: Vital Signs Temperature 100.2 F H 01/08/21 20:25 Pulse Rate 118 H 01/08/21 20:25 Respiratory Rate 20 01/08/21 20:25 Blood Pressure 163/94 H 01/08/21 20:25 Pulse Oximetry 97 01/08/21 20:25 Course Orders Ordered: ED Orders 01/08/21 20:27 EKG-12 Lead Routine 01/08/21 20:45 Complete Blood Count AUTO DIFF Stat Comprehensive Metabolic Panel Stat Lactate (Lactic Acid) Stat Partial Thromboplastin Time Stat Procalcitonin Stat Troponin & CK Cardiac Panel Stat 01/08/21 20:54 CT angio chest PE protocol Stat 01/08/21 21:04 Blood Culture Stat 01/08/21 22:35 Urinalysis and Microscopic Stat 01/08/21 22:50 COVID19 - ADMIT (S[employer]ELOPER swab/PCR) Stat 01/09/21 04:45 PTT [Partial Thromboplastin Time] Q6H 01/09/21 10:45 PTT [Partial Thromboplastin Time] Q6H 01/09/21 16:45 PTT [Partial Thromboplastin Time] Q6H 01/09/21 22:45 PTT [Partial Thromboplastin Time] Q6H 01/10/21 22:45 Partial Thromboplastin Time DAILY 01/11/21 22:45 Partial Thromboplastin Time DAILY 01/12/21 22:45 Partial Thromboplastin Time DAILY 01/13/21 22:45 Partial Thromboplastin Time DAILY 01/14/21 22:45 Partial Thromboplastin Time DAILY Acetaminophen (Acetaminophen 325 Mg Tablet) 650 mg PO Q6HR PRN PRN Reason: Fever/Mild Pain (1-3) Last Admin: 01/09/21 01:19 Dose: 650 mg Documented by: JEREMIAH Hydromorphone HCl (Hydromorphone 0.5 Mg Inj) 0.5 mg IV Q15MIN PRN PRN Reason: Pain, Last Admin: 01/08/21 21:11 Dose: 0.5 mg Documented by: VERONICA Hydromorphone HCl (Hydromorphone 0.5 Mg Inj) 1 mg IV Q15MIN PRN PRN Reason: Pain, Last Admin: 01/09/21 02:42 Dose: 1 mg Documented by: Admin: 01/08/21 22:07 Dose: 1 mg Documented by: Admin: 01/08/21 21:46 Dose: 1 mg Documented by: MIKAEL Heparin Sodium/Dextrose (Heparin Drip) 25,000 unit in 500 mls @ 29.393 mls/hr IV CONT OLGA; Protocol Last Admin: 01/08/21 23:06 Dose: 18 units/kg/hr, 29.393 mls/hr Documented by: MIKAEL Sodium Chloride (Normal Saline 0.9%) 1,000 mls @ 100 mls/hr IV CONT OLGA Last Admin: 01/09/21 01:20 Dose: 100 mls/hr Documented by: JEREMIAH Morphine Sulfate (Morphine 4 Mg/Ml Inj) 4 mg IV Q15MIN PRN PRN Reason: pain Last Admin: 01/09/21 01:21 Dose: 4 mg Documented by: Admin: 01/09/21 00:14 Dose: 4 mg Documented by: Admin: 01/08/21 23:32 Dose: 4 mg Documented by: MIKAEL Morphine Sulfate (Morphine 4 Mg/Ml Inj) 4 mg IV Q1H PRN PRN Reason: Pain, Severe (7-10) Morphine Sulfate (Morphine Er 15 Mg Tablet) 15 mg PO Q8HR OLGA Last Admin: 01/09/21 01:18 Dose: 15 mg Documented by: JEREMIAH Naloxone HCl (Naloxone 0.4 Mg/Ml Vial) 0.2 mg IV Q2MIN PRN PRN Reason: Opiate Reversal Nicotine (Nicotine 7 Mg Patch) 7 mg TOP DAILY OLGA Ondansetron HCl (Ondansetron 4 Mg/2 Ml Inj) 4 mg IV Q6HR PRN PRN Reason: Nausea And Vomiting Sennosides (Sennosides 8.6 Mg Tablet) 17.2 mg PO BEDTIME OLGA Discontinued Medications Heparin Sodium (Porcine) (Heparin 5,000 Unit/Ml Vial) 6,500 unit 80 unit/kg (6500 unit) IV NOW ONE Stop: 01/08/21 22:44 Last Admin: 01/08/21 23:05 Dose: 6,500 unit Documented by: MIKAEL Vancomycin HCl (Vancomycin) 1,000 mg in 200 mls @ 200 mls/hr IV NOW ONE Stop: 01/08/21 21:52 Last Infusion: 01/09/21 00:10 Dose: 0 mls/hr Documented by: Admin: 01/08/21 22:07 Dose: 200 mls/hr Documented by: VERONICA Ceftriaxone Sodium 2,000 mg/ (Sodium Chloride) 100 mls @ 200 mls/hr IV NOW ONE Stop: 01/08/21 20:54 Last Infusion: 01/08/21 21:47 Dose: 0 mls/hr Documented by: Admin: 01/08/21 21:12 Dose: 200 mls/hr Documented by: VERONICA Sodium Chloride (Normal Saline 0.9%) 1,000 mls @ 1,000 mls/hr IV BOLUS ONE Stop: 01/08/21 21:52 Last Infusion: 01/09/21 00:10 Dose: 1,000 mls/hr Documented by: Admin: 01/08/21 21:12 Dose: 1,000 mls/hr Documented by: VERONICA Morphine Sulfate (Morphine 4 Mg/Ml Inj) 4 mg IV NOW ONE Stop: 01/08/21 22:43 Last Admin: 01/08/21 22:45 Dose: 4 mg Documented by: MIKAEL Morphine Sulfate (Morphine 4 Mg/Ml Inj) 4 mg IV NOW ONE Stop: 01/08/21 22:43 Last Admin: 01/08/21 23:02 Dose: 4 mg Documented by: MIKAEL Morphine Sulfate (Morphine Er 15 Mg Tablet) 15 mg PO Q8HR OLGA Vital Signs Vital signs: Vital Signs - 8 hr 01/08/21 20:25 01/08/21 20:33 01/08/21 21:00 Temperature 100.2 F H Pulse Rate 118 H 116 H 121 H Respiratory Rate 20 20 22 Blood Pressure 163/94 H Pulse Oximetry 97 96 92 01/08/21 21:26 01/08/21 21:30 01/08/21 22:03 Temperature 99.6 F Pulse Rate 117 H 116 H 122 H Respiratory Rate 21 18 Blood Pressure 135/79 135/80 206/105 H Pulse Oximetry 91 91 96 01/08/21 22:06 01/08/21 22:11 01/08/21 22:30 Temperature Pulse Rate 120 H 113 H 125 H Respiratory Rate 24 10 L 19 Blood Pressure 206/105 H 150/76 H 184/105 H Pulse Oximetry 96 97 96 01/08/21 23:00 01/08/21 23:04 Temperature Pulse Rate 131 H 129 H Respiratory Rate 21 19 Blood Pressure 179/88 H 131/93 H Pulse Oximetry 96 95 MDM - Chest Pain Medical Records Data Medical records narrative: Operative Date/Time/Diagnoses Date of procedure: 01/04/21 Time of procedure: 15:30 Pre-op diagnosis: 1. L4-5 far lateral disc herniation 2. L4-5 spinal stenosis with radiculopathy Post-op diagnosis: same Procedure & Clinicians Procedure: 1. L4-5 Postero-lateral and posterior interbody fusion 2. L4-5 interbody cage placement. 3. L4-5 decompressive laminectomy with bilateral facetecomies 4. L4-5 Posterior non-segmental instrumentation 5. [place] of bone marrow from iliac crest 6. Utilization of microsurgical technique and operating microscope Lab Data Result diagrams: 01/08/21 20:45 01/08/21 20:45 Labs: Lab Results 01/08/21 01/08/21 01/08/21 Range/Units 20:45 20:45 20:45 WBC 9.1 (4.5-11.0) X10^3/uL RBC 4.44 L (4.5-5.9) X10^6/uL Hgb 15.1 (13.5-17.5) g/dL Hct 42.9 (41-53) % MCV 96.5 (80-100) fL MCH 34.0 (26-34) PG MCHC 35.2 (30-36) % RDW 13.0 (11.6-14.8) % Plt Count 98 L (150-400) X10^3/uL Neut % (Auto) 68.5 (50-75) % Lymph % (Auto) 17.4 L (25-40) % [place] % (Auto) 6.1 (3-14) % Eos % (Auto) 5.8 H (2-4) % Baso % (Auto) 2.2 H (0-2) % Neut # (Auto) 6200 (4018-8386) /uL Lymph # (Auto) 1600 (5884-4233) /uL [place] # (Auto) 600 (0-900) /uL Eos # (Auto) 500 H (0-450) /uL Baso # (Auto) 200 H (0-100) /uL APTT (26.4-36.2) SECONDS Sodium 135 L (137-145) mmol/L Potassium 4.1 (3.4-5.1) mmol/L Chloride 99 (98-107) mmol/L Carbon Dioxide 28 (22-32) mmol/L BUN 19 (9-20) mg/dL Creatinine 0.84 (0.66-1.25) mg/dL Estimated GFR > 60.0 (>60) mL/min BUN/Creatinine Ratio 22.6 H (6-22) Glucose 126 H (80-110) mg/dL Lactate 1.0 (0.7-2.1) mmol/L Calcium 9.5 (8.4-10.2) mg/dL Total Bilirubin 1.2 (0.2-1.3) mg/dL AST 39 (17-59) IU/L ALT 43 (<50) IU/L Alkaline Phosphatase 76 (38-126) U/L Total Creatine Kinase 196 H (55-170) U/L CK-MB (CK-2) 0.27 (<2.37) ng/mL CK-MB (CK-2) Rel Index 0.1 L (1.5-5.0) % Troponin I < 0.012 (0.01-0.034) ng/mL Total Protein 7.4 (6.3-8.2) g/dL Albumin 4.2 (3.5-5.0) g/dL Globulin 3.2 (1.7-4.1) g/dL Albumin/Globulin Ratio 1.3 (1.0-2.8) Procalcitonin 0.06 (<0.5) ng/mL Urine Color Urine Appearance Urine pH (4.5-8.0) Ur Specific [place] (1.000-1.035) Urine Protein (Negative) Urine Glucose (UA) (Negative) g/dL Urine Ketones (NEGATIVE) Urine Occult Blood (Negative) Urine Nitrate (Negative) Urine Bilirubin (NEGATIVE) Urine Urobilinogen (0.2) E.U./dL Ur Leukocyte Esterase (NEGATIVE) Urine RBC (0-5/HPF) Urine WBC (0-5/HPF) Urine Bacteria (None) Ur Culture Indicated? SARS-CoV-2 (PCR) (Negative) 01/08/21 01/08/21 01/08/21 Range/Units 20:45 22:35 22:50 WBC (4.5-11.0) X10^3/uL RBC (4.5-5.9) X10^6/uL Hgb (13.5-17.5) g/dL Hct (41-53) % MCV (80-100) fL MCH (26-34) PG MCHC (30-36) % RDW (11.6-14.8) % Plt Count (150-400) X10^3/uL Neut % (Auto) (50-75) % Lymph % (Auto) (25-40) % [place] % (Auto) (3-14) % Eos % (Auto) (2-4) % Baso % (Auto) (0-2) % Neut # (Auto) (2979-8970) /uL Lymph # (Auto) (5068-0512) /uL [place] # (Auto) (0-900) /uL Eos # (Auto) (0-450) /uL Baso # (Auto) (0-100) /uL APTT 32 (26.4-36.2) SECONDS Sodium (137-145) mmol/L Potassium (3.4-5.1) mmol/L Chloride (98-107) mmol/L Carbon Dioxide (22-32) mmol/L BUN (9-20) mg/dL Creatinine (0.66-1.25) mg/dL Estimated GFR (>60) mL/min BUN/Creatinine Ratio (6-22) Glucose (80-110) mg/dL Lactate (0.7-2.1) mmol/L Calcium (8.4-10.2) mg/dL Total Bilirubin (0.2-1.3) mg/dL AST (17-59) IU/L ALT (<50) IU/L Alkaline Phosphatase (38-126) U/L Total Creatine Kinase (55-170) U/L CK-MB (CK-2) (<2.37) ng/mL CK-MB (CK-2) Rel Index (1.5-5.0) % Troponin I (0.01-0.034) ng/mL Total Protein (6.3-8.2) g/dL Albumin (3.5-5.0) g/dL Globulin (1.7-4.1) g/dL Albumin/Globulin Ratio (1.0-2.8) Procalcitonin (<0.5) ng/mL Urine Color Yellow Urine Appearance Clear Urine pH 7.0 (4.5-8.0) Ur Specific [place] 1.010 (1.000-1.035) Urine Protein Negative (Negative) Urine Glucose (UA) Negative (Negative) g/dL Urine Ketones Negative (NEGATIVE) Urine Occult Blood Negative (Negative) Urine Nitrate Negative (Negative) Urine Bilirubin Negative (NEGATIVE) Urine Urobilinogen 0.2 (0.2) E.U./dL Ur Leukocyte Esterase Negative (NEGATIVE) Urine RBC 0-1/hpf (0-5/HPF) Urine WBC None seen (0-5/HPF) Urine Bacteria None seen (None) Ur Culture Indicated? Cult not indicated SARS-CoV-2 (PCR) Negative (Negative) Urine Dip Bedside Urine Glucose Negative Bedside Urine Bilirubin - Negative Bedside Urine Ketone - Negative Urine Specific [place] 1.010 Bedside Urine Occult Blood - Negative Bedside Urine pH 6.5 Bedside Urine Protein - Negative Bedside Urine Urobilinogen - Negative Bedside Urine Nitrite - Negative Bedside Urine Leukocytes - Negative Esterase Imaging Data CT scan - chest: Radiologist's Impression: FINDINGS:? Image quality:? Excellent.? ? Pulmonary arteries:? Focal acute pulmonary embolus in the posterior basal segment left lower lobe pulmonary artery.? No central pulmonary emboli.? No evidence of right heart strain. ? Lungs and pleura:? Patchy atelectasis, left lower lobe.? No pleural effusions or pneumothorax.? Central and peripheral airways are patent.? ? Mediastinum:? Heart size is normal, without pericardial effusion.? No mediastinal or hilar adenopathy.? Thoracic aorta is normal in caliber and enhancement.? Esophagus is normal in caliber, without hiatal hernia.? ? Bones and chest wall:? No suspicious bony lesions.? Ribs and thoracic spine appear intact throughout.? Left lobe of thyroid may be absent.? Right lobe of thyroid is unremarkable.? No axillary or supraclavicular adenopathy.? ? Abdomen:? Visualized upper abdominal solid organs appear normal in the early arterial phase of enhancement.? ? IMPRESSION:? ? 1. Acute peripheral pulmonary embolus, left lower lobe.? No central pulmonary emboli.? No evidence of acute right heart strain. ? 2. Patchy left basilar atelectasis.? ? ? Dictated by: Alexander Charles M.D. on 01/08/2021 at 22:22? ?? ECG Data Interpretation: Sinus tachycardia at a rate of 117 Left anterior fascicular block No acute ischemic changes MDM Narrative Medical decision making narrative: 65-year-old gentleman with the prior history of DVT recent lumbar orthopedic surgery discharged home yesterday presents complaining of left calf pain and dyspnea. He is tachypneic tachycardic and dyspneic with no specific findings on auscultation for pulmonary exam. CT of the chest indicates acute peripheral pulmonary edema left lower lobe no central pulmonary emboli. Patchy left basilar atelectasis. With initial presentation concern for sepsis was entertained. He was given a L fluid started on vancomycin and ceftriaxone. White blood cell count is normal no evidence of infection in the lung, urine, abdomen or surgical site. Will leave decision to continue antibiotics to hospitalist team. No evidence for acute coronary syndrome. Pain has been difficult to control with both the postsurgical pain as well as left posterior lung pain. IV Dilaudid was not effective trying IV morphine at this point. He has had allergic reactions to Toradol previously. 11pm Dr. Rose was orthopedic surgeon. Dr. Hanks is notified of admission planned to the hospitalist service for pulmonary embolism. Had no additional r ecommendations or specific orthopedic concerns. 11:10 care is discussed with MARI Prado and patient will be admitted to the hospitalist service ICU with the heparin drip and abnormal vitals this time. Discharge Plan Departure Patient Disposition: Admitted As Inpatient Clinical Impression: Pulmonary embolism, Post-op pain Admit Date/Time: 01/08/21 23:07 Admit Provider: Cristal Soler
--- NOTE | 2021-01-08 20:54 | DI.CT.S_ITS ---
PROCEDURE: CT ANGIO CHEST PE PROTOCOL INDICATIONS: high suspicion PE TECHNIQUE: After the administration of intravenous contrast, 2 mm thick sections acquired from the pulmonary apices to the posterior costophrenic angles. 3-dimensional maximum intensity projection (MIP) coronal and sagittal reformats were then acquired through the thorax. For radiation dose reduction, the following was used: automated exposure control, adjustment of mA and/or kV according to patient size. COMPARISON: [facility], CT, CT ANGIO CHEST PE PROTOCOL, 06/02/2019, 18:14. FINDINGS: Image quality: Excellent. Pulmonary arteries: Focal acute pulmonary embolus in the posterior basal segment left lower lobe pulmonary artery. No central pulmonary emboli. No evidence of right heart strain. Lungs and pleura: Patchy atelectasis, left lower lobe. No pleural effusions or pneumothorax. Central and peripheral airways are patent. Mediastinum: Heart size is normal, without pericardial effusion. No mediastinal or hilar adenopathy. Thoracic aorta is normal in caliber and enhancement. Esophagus is normal in caliber, without hiatal hernia. Bones and chest wall: No suspicious bony lesions. Ribs and thoracic spine appear intact throughout. Left lobe of thyroid may be absent. Right lobe of thyroid is unremarkable. No axillary or supraclavicular adenopathy. Abdomen: Visualized upper abdominal solid organs appear normal in the early arterial phase of enhancement. IMPRESSION: 1. Acute peripheral pulmonary embolus, left lower lobe. No central pulmonary emboli. No evidence of acute right heart strain. 2. Patchy left basilar atelectasis. Dictated by: Alexander Charles M.D. on 01/08/2021 at 22:22 Approved by: Alexander Charles M.D. on 01/08/2021 at 22:26
[2021-01-08] MEDS: HYDROMORPHONE 0.5 MG INJ IV (21:11)
[2021-01-08] MEDS: cefTRIAXone 2,000 MG in SODIUM CHLORIDE 0.9% 100 ML 200 ML IV (21:12)
[2021-01-08] MEDS: SODIUM CHLORIDE 0.9% 1,000 ML 1000 ML IV (21:12)
[2021-01-08 21:15] LABS: Alanine Aminotransferase 43 IU/L (<50); Albumin 4.2 g/dL (3.5-5.0); Albumin Globulin Ratio 1.3 (1.0-2.8); Alkaline Phosphatase 76 U/L (38-126); Aspartate Aminotransferase 39 IU/L (17-59); BUN Creatinine Ratio 22.6 (6-22); Bilirubin Total 1.2 mg/dL (0.2-1.3); Blood Urea Nitrogen 19 mg/dL (9-20); Calcium 9.5 mg/dL (8.4-10.2); Carbon Dioxide 28 mmol/L (22-32); Chloride 99 mmol/L (98-107); Creatine Kinase 196 U/L (55-170); Estimated Glomerular Filt Rate > 60.0 mL/min (>60); Globulin 3.2 g/dL (1.7-4.1); Glucose 126 mg/dL (80-110); HEMOLYSIS < 15 (0-50); Potassium 4.1 mmol/L (3.4-5.1); Sodium 135 mmol/L (137-145); Total Protein 7.4 g/dL (6.3-8.2)
[2021-01-08 21:28] LABS: Troponin I < 0.012 ng/mL (0.01-0.034)
[2021-01-08 21:31] LABS: CKMB % Relative Index 0.1 % (1.5-5.0); Creatine Kinase MB 0.27 ng/mL (<2.37)
[2021-01-08 21:32] LABS: Add Manual Diff / Slide Review NO; Basophils Absolute Auto 200 /uL (0-100); Basophils Percent Auto 2.2 % (0-2); Eosinophils Absolute Auto 500 /uL (0-450); Eosinophils Percent Auto 5.8 % (2-4); Hematocrit 42.9 % (41-53); Hemoglobin 15.1 g/dL (13.5-17.5); Lymphocytes Absolute Auto 1600 /uL (1100-4500); Lymphocytes Percent Auto 17.4 % (25-40); Mean Corpuscular HGB Conc 35.2 % (30-36); Mean Corpuscular Volume 96.5 fL (80-100); Monocytes Absolute Auto 600 /uL (0-900); Monocytes Percent Auto 6.1 % (3-14); Neutrophils Absolute Auto 6200 /uL (1500-7000); Neutrophils Percent Auto 68.5 % (50-75); Platelet Count 98 X10^3/uL (150-400); Procalcitonin 0.06 ng/mL (<0.5); Red Blood Cell Count 4.44 X10^6/uL (4.5-5.9); White Blood Cell Count 9.1 X10^3/uL (4.5-11.0)
[2021-01-08] MEDS: HYDROMORPHONE 0.5 MG INJ 1 MG IV ×2 (21:46→22:07)
[2021-01-08] MEDS: VANCOMYCIN 1,000 MG/200 ML PIGGYBACK 200 MG IV (22:07)
[2021-01-08] MEDS: MORPHINE 4 MG/ML INJ IV ×3 (22:45→23:32)
[2021-01-08 23:05] LABS: PTT Partial Thromboplastin Tim 32 SECONDS (26.4-36.2)
[2021-01-08] MEDS: HEPARIN 5,000 UNIT/ML VIAL 6500 UNIT IV (23:05)
[2021-01-08] MEDS: HEPARIN DRIP 25,000 UNIT/500 ML IV.SOLN 29.393 UNIT IV (23:06)
[2021-01-08 23:21] LABS: Appearance Urine UA CLEAR; Bilirubin Urine UA NEGATIVE (NEGATIVE); Color Urine UA YELLOW; Glucose Urine UA NEGATIVE (Negative); Ketones Urine UA NEGATIVE (NEGATIVE); Leukocyte Esterase Urine UA NEGATIVE (NEGATIVE); Nitrite Urine UA NEGATIVE (Negative); Occult Blood Urine UA NEGATIVE (Negative); Protein Urine UA NEGATIVE (Negative); Urobilinogen Urine UA 0.2 E.U./dL (0.2)
[2021-01-08 23:22] LABS: RBC Urine 0-1/HPF (0-5/HPF)
[2021-01-08 23:23] LABS: Bacteria Urine None Seen; Culture Indicated Urine Cult Not Indicated; WBC Urine None Seen (0-5/HPF)
[2021-01-08 23:51] LABS: COVID19 - ADMIT (NP swab/PCR) Negative (Negative)
--- NOTE | 2021-01-08 23:58 | DI.US.S_ITS ---
PROCEDURE: US PERIPH VENOUS LOW EXTREM BI INDICATIONS: PE TECHNIQUE: Real-time imaging, as well as color and pulse Doppler interrogation, were performed of the deep veins of both legs from the inguinal ligament to the popliteal fossa. COMPARISON: None. FINDINGS: Right: The common femoral, femoral and popliteal veins are normally compressible, and free of intraluminal thrombus. Color and pulse Doppler demonstrate normal phasic intravascular flow. There is normal augmentation response to distal compression maneuver. Left: The common femoral, femoral and popliteal veins are normally compressible, and free of intraluminal thrombus. Color and pulse Doppler demonstrate normal phasic intravascular flow. There is normal augmentation response to distal compression maneuver. IMPRESSION: No evidence of DVT in visualized bilateral lower extremity veins. Dictated by: Kamaljit Dumont M.D. on 01/09/2021 at 7:46 Approved by: Kamaljit Dumont M.D. on 01/09/2021 at 7:47
[2021-01-09] VITALS (14 sets, daily range): BP systolic 112–135; BP diastolic 69–80; PULSE 80–112; RESP 16–28; TEMP 36.6–37.8; O2SAT 94–98; BMI 25.7
[2021-01-09] MEDS: MORPHINE 4 MG/ML INJ IV ×8 (00:14→23:53)
--- NOTE | 2021-01-09 00:47 | P.HP_ITS ---
History of Present Illness History of Present Illness Date Patient Seen: 01/09/21 Time Patient Seen: 23:00 Chief complaint: chest pain , short of breath s/p surgery Narrative: Eliezer Weathers is a 65 y.o. male with a prior history of a right-sided DVT, a right lower lung PE both in May of 2019 is status post POD #4 L4-5 postero-lateral and posterior interbody fusion by Dr. Rose returned discharged on January 07 returns today with chest pain and left-sided back pain. The patient is having a difficult time talking to due to pain. However earlier on 1020 he stated at 4:30 a.m. his lung started to hurt to the point where he felt the need to come in. He stated that he did have left-sided calf achiness which is since resolved he does not have any numbing or tingling in his extremities and did inform the ED provider that he had some tingling in his calf before it became achy. Patient was found to have had a left his posterior pulmonary embolism. CTA ordered by the emergency room indicated the following findings: 1. Acute peripheral pulmonary embolus, left lower lobe.? No central pulmonary emboli.? No evidence of acute right heart strain. 2. Patchy left basilar atelectasis.?The emergency room initiated a heparin bolus and drip. Patient's temperature was 98.9?, blood pressure 137/78, heart rate 127, respiratory rate 30, oxygen saturation of 96% on 4 L, he weighs 81.4 kg with a BMI of 25.8. WBC is 9.1 RBC 4.44 hemoglobin and hematocrit are 15.1 and 42.9 respectively, platelet count is 98 sodium was 135 rest of his chemistries are within normal limits, glucose mildly elevated 126 likely stress troponin is within normal limits, COVID-19 PCR is negative. Patient History Medical History Arthritis Deep vein thrombosis of lower extremity History of deep venous thrombosis (DVT) of distal vein of right lower extremity History of osteosarcoma Osteosarcoma (~2000) Pulmonary embolism (2019) Pulmonary embolism on right Seasonal allergies Surgical History H/O lumbosacral spine surgery History of mandibular surgery History of nasal septoplasty Hx of partial thyroidectomy Hx of sinus surgery Hx of tonsillectomy Status post left partial knee replacement (2019) Family & Social History Family History (Updated 01/09/21 @ 01:59 by MARI Reed) Brother Cancer Father Old age Mother Alive and well Social History: household members significant other Safety & Behavioral: Feels Safe in Current Yes Environment Tobacco & Substance use: Tobacco type cigarettes Smoking Status Current every day smoker alcohol intake current alcohol intake frequency a few times a week Substance Use Type does not use Meds Home Medications and Allergies Home Medications Medication Instructions Recorded Confirmed Type ibuprofen 200 mg tablet 600 mg PO DAILY PRN 01/04/21 01/04/21 History acetaminophen 500 mg capsule 500 mg PO Q4H PRN #90 cap MDD max 01/07/21 Rx 6 tabs per day docusate sodium 100 mg capsule 100 mg PO BID PRN #30 cap 01/07/21 Rx hydromorphone 4 mg tablet 4 mg PO Q4HR PRN #42 tab 01/07/21 01/08/21 Rx hydroxyzine pamoate 25 mg capsule 25 mg PO Q4HR PRN #40 cap 01/07/21 Rx Allergies Allergy/AdvReac Type Severity Reaction Status Date / Time Penicillins Allergy Mild Rash Verified 01/01/21 14:04 bee venom protein (honey bee) AdvReac Intermediate Swelling Verified 01/01/21 14:04 at site Review of Systems Review of Systems ROS: Yes All systems reviewed with the patient and are negative except as otherwise documented Exam Vital Signs (past 8 hours): - 01/08/21 20:25 01/08/21 20:33 01/08/21 21:00 Temperature 100.2 F H Pulse Rate 118 H 116 H 121 H Respiratory Rate 20 20 22 Blood Pressure 163/94 H Pulse Oximetry 97 96 92 01/08/21 21:26 01/08/21 21:30 01/08/21 22:03 Temperature 99.6 F Pulse Rate 117 H 116 H 122 H Respiratory Rate 21 18 Blood Pressure 135/79 135/80 206/105 H Pulse Oximetry 91 91 96 01/08/21 22:06 01/08/21 22:11 01/08/21 22:30 Temperature Pulse Rate 120 H 113 H 125 H Respiratory Rate 24 10 L 19 Blood Pressure 206/105 H 150/76 H 184/105 H Pulse Oximetry 96 97 96 01/08/21 23:00 01/08/21 23:04 01/08/21 23:30 Temperature Pulse Rate 131 H 129 H 130 H Respiratory Rate 21 19 18 Blood Pressure 179/88 H 131/93 H 125/89 Pulse Oximetry 96 95 94 01/08/21 23:55 Temperature 98.9 F Pulse Rate 127 H Respiratory Rate 30 H Blood Pressure 137/78 Pulse Oximetry 96 Oxygen Delivery Method Nasal Cannula Oxygen Flow Rate 4 Narrative Exam Narrative: Gen: Alert, oriented, well-developed 65 y.o. male, appears quite unco mfortable HEENT: normocephalic, atraumatic, conjunctiva clear, sclera non-icteric, oral mucosa pink and moist Neck: supple, full ROM, no JVD, trachea is midline Resp: Tachypnic but clear, non-labored breathing CV: RRR, no murmur or rubs Abd: soft, non-tender, normoactive BTs Skin: No drainage seen on back incision, no lesions or rashes, dry and intact Neuro: Alert and oriented X 4 w/no focal deficits. Speech clear and coherent. Extremities: moves all 4 extremities, is ambulatory, negative Amada?s sign Psyche: normal mood and affect. Objective Labs Result Diagrams: 01/08/21 20:45 01/08/21 20:45 Labs: Laboratory Results - last 24 hr 01/08/21 01/08/21 01/08/21 20:45 20:45 20:45 WBC 9.1 RBC 4.44 L Hgb 15.1 Hct 42.9 MCV 96.5 MCH 34.0 MCHC 35.2 RDW 13.0 Plt Count 98 L Neut % (Auto) 68.5 Lymph % (Auto) 17.4 L [place] % (Auto) 6.1 Eos % (Auto) 5.8 H Baso % (Auto) 2.2 H Neut # (Auto) 6200 Lymph # (Auto) 1600 [place] # (Auto) 600 Eos # (Auto) 500 H Baso # (Auto) 200 H APTT Sodium 135 L Potassium 4.1 Chloride 99 Carbon Dioxide 28 BUN 19 Creatinine 0.84 Estimated GFR > 60.0 BUN/Creatinine Ratio 22.6 H Glucose 126 H Lactate 1.0 Calcium 9.5 Total Bilirubin 1.2 AST 39 ALT 43 Alkaline Phosphatase 76 Total Creatine Kinase 196 H CK-MB (CK-2) 0.27 CK-MB (CK-2) Rel Index 0.1 L Troponin I < 0.012 Total Protein 7.4 Albumin 4.2 Globulin 3.2 Albumin/Globulin Ratio 1.3 Procalcitonin 0.06 Urine Color Urine Appearance Urine pH Ur Specific [place] Urine Protein Urine Glucose (UA) Urine Ketones Urine Occult Blood Urine Nitrate Urine Bilirubin Urine Urobilinogen Ur Leukocyte Esterase Urine RBC Urine WBC Urine Bacteria Ur Culture Indicated? SARS-CoV-2 (PCR) 01/08/21 01/08/21 01/08/21 20:45 22:35 22:50 WBC RBC Hgb Hct MCV MCH MCHC RDW Plt Count Neut % (Auto) Lymph % (Auto) [place] % (Auto) Eos % (Auto) Baso % (Auto) Neut # (Auto) Lymph # (Auto) [place] # (Auto) Eos # (Auto) Baso # (Auto) APTT 32 Sodium Potassium Chloride Carbon Dioxide BUN Creatinine Estimated GFR BUN/Creatinine Ratio Glucose Lactate Calcium Total Bilirubin AST ALT Alkaline Phosphatase Total Creatine Kinase CK-MB (CK-2) CK-MB (CK-2) Rel Index Troponin I Total Protein Albumin Globulin Albumin/Globulin Ratio Procalcitonin Urine Color Yellow Urine Appearance Clear Urine pH 7.0 Ur Specific [place] 1.010 Urine Protein Negative Urine Glucose (UA) Negative Urine Ketones Negative Urine Occult Blood Negative Urine Nitrate Negative Urine Bilirubin Negative Urine Urobilinogen 0.2 Ur Leukocyte Esterase Negative Urine RBC 0-1/hpf Urine WBC None seen Urine Bacteria None seen Ur Culture Indicated? Cult not indicated SARS-CoV-2 (PCR) Negative Assessment & Plan Assessment & Plan narrative: Eliezer Weathers is a 65-year-old male with a past history right-sided DVT, right- sided PE both in 2020 and remote history of and osteosarcoma and removal, and S/P lumbar surgery on January 04 and discharged on January 07 is admitted today for a left posterior pulmonary embolism. 1. Left-sided posterior pulmonary embolism, acute, present on admission * In the emergency department he was started with a heparin bolus and a bolus * Patient was to be placed in the ICU for the emergency department provider * I consulted with the [facility] regarding the patient's placement, there are involvement. They expressed a concern about having the patient be anticoagulated when he has only been postsurgical day for for spinal surgery. * I confirmed with the emergency department provider that she spoke to Dr. Hanks, orthopedist on-call and spoke to him personally, who did not seem to be concerned about contraindications to anticoagulation. He also further confirmed we do not have ortho spine coverage to contact and would not be able to contact Dr. Rose. * [facility] indicated that the patient should have a neurosurgeon render an opinion on anticoagulation and as an alternative to heparin drip the patient may need an IVC placement and interventional retrieval of of a clot if he has in his lower extremities. Patient did not undergo ultrasound evaluation for a DVT as u/s services are not available at night. * I have also spoken to Dr. Conrad regarding this case * Nursing coordinators attempting to locate a neurosurgical consult regarding this case 2. Current tobacco dependence, chronic * Smoking cessation is encouraged due to its affects on healing * Patient will be offered a tobacco patch VTE Prophylaxis: Wells risk score 10.5 Patient is currently being anticoagulated on a heparin drip. Patient is admitted to the inpatient service due to the severity of disease, risks of further disease progression and this stay is expected to exceed 2 midnights. FEN: IV fluids: [Normal saline at 100 mL/hour diet: Regular diet, labs: CBC, C/BMP, liver enzymes, Mag, PT/INR, heparin drip protocol Consultants None [X] Dispo: Unknown at this time Code status: Full codeas discussed with the patient who identifies his life partner as his surrogate and DPOA [X] I confirmed that the patient's advanced care plan is present, code status is determined, or surrogate decision maker is listed on the patient's medical record. [X] I have utilized all available immediate resources to obtain, update, or review of the patient's current medications COVID-19 COVID-19 status: Negative Result date/Date tested (Pos, Neg/Pending): 01/09/21 Scores Wells' Criteria for PE Clinical signs and symptoms of DVT: Yes PE is #1 Dx or equally likely: Yes Heart rate > 100: Yes Immobilization at least 3 days or surg in previous 4 weeks: Yes History of PE or DVT: Yes Hemoptysis: No Malignancy w/Treatment within 6 months or palliative: No Wells' PE Score total: 10.5 Quality VTE Deep Vein Thrombosis/Pulmonary Embolism Present on Admission: Yes MIPS - Admit I confirm the patient?s Advance Care Plan is present, Code status is documented, Surrogate decision maker is in patient?s record [If Yes, STOP here]: Yes MIPS - DC The patient has current or prior documentation of left ventricular ejection fraction (LVEF) less than 40%, or moderate or severely depressed left v entricular systolic function.: No
[2021-01-09] MEDS: MORPHINE ER 15 MG TABLET PO ×2 (01:18→06:04)
[2021-01-09] MEDS: ACETAMINOPHEN 325 MG TABLET 650 MG PO (01:19)
[2021-01-09] MEDS: SODIUM CHLORIDE 0.9% 1,000 ML 100 ML IV ×2 (01:20→06:05)
[2021-01-09] MEDS: HYDROMORPHONE 0.5 MG INJ 1 MG IV (02:42)
[2021-01-09 05:12] LABS: Add Manual Diff / Slide Review NO; Basophils Absolute Auto 100 /uL (0-100); Basophils Percent Auto 0.7 % (0-2); Eosinophils Absolute Auto 500 /uL (0-450); Eosinophils Percent Auto 5.4 % (2-4); Hemoglobin 14.5 g/dL (13.5-17.5); Lymphocytes Absolute Auto 1900 /uL (1100-4500); Lymphocytes Percent Auto 21.2 % (25-40); Mean Corpuscular HGB Conc 34.5 % (30-36); Mean Corpuscular Hemoglobin 33.4 PG (26-34); Mean Corpuscular Volume 96.8 fL (80-100); Monocytes Absolute Auto 800 /uL (0-900); Monocytes Percent Auto 8.8 % (3-14); Neutrophils Absolute Auto 5700 /uL (1500-7000); Neutrophils Percent Auto 63.9 % (50-75); Platelet Count 101 X10^3/uL (150-400); Red Blood Cell Count 4.34 X10^6/uL (4.5-5.9); Red Cell Distribution Width 12.9 % (11.6-14.8)
[2021-01-09 05:19] LABS: BUN Creatinine Ratio 22.1 (6-22); Blood Urea Nitrogen 15 mg/dL (9-20); Calcium 8.6 mg/dL (8.4-10.2); Carbon Dioxide 27 mmol/L (22-32); Chloride 101 mmol/L (98-107); Estimated Glomerular Filt Rate > 60.0 mL/min (>60); Glucose 127 mg/dL (80-110); HEMOLYSIS < 15 (0-50); Magnesium 1.9 mg/dL (1.6-2.3); Potassium 4.5 mmol/L (3.4-5.1); Sodium 134 mmol/L (137-145)
[2021-01-09 05:20] LABS: PTT Partial Thromboplastin Tim 88 SECONDS (26.4-36.2)
--- NOTE | 2021-01-09 07:03 | P.PN_ITS ---
Subjective Subjective Date Patient Seen: 01/09/21 Time Patient Seen: 06:30 Interval history: Today he continues to state he feels chest pain with breathing and shortness of breath. Exam Vital Signs (past 8 hours): - 01/08/21 23:04 01/08/21 23:30 01/08/21 23:55 Temperature 98.9 F Pulse Rate 129 H 130 H 127 H Respiratory Rate 19 18 30 H Blood Pressure 131/93 H 125/89 137/78 Pulse Oximetry 95 94 96 01/09/21 02:30 01/09/21 03:30 01/09/21 05:04 Temperature 98.2 F 100.0 F H Pulse Rate 112 H 112 H 106 H Respiratory Rate 28 H 20 Blood Pressure 130/74 117/78 Pulse Oximetry 96 96 96 Oxygen Delivery Method Nasal Cannula Oxygen Flow Rate 3 Narrative Exam Narrative: Gen: Alert, oriented, no acute distress Resp: clear bilaterally CV: regular rate and rhythm, no murmurs Abd: soft, non-tender Neuro: Alert and oriented, moving all extremities with no focal deficits Psyche: withdrawn affect Objective Labs Result Diagrams: 01/09/21 05:00 01/09/21 05:00 Labs: Laboratory Results - last 24 hr 01/08/21 01/08/21 01/08/21 20:45 20:45 20:45 WBC 9.1 RBC 4.44 L Hgb 15.1 Hct 42.9 MCV 96.5 MCH 34.0 MCHC 35.2 RDW 13.0 Plt Count 98 L Neut % (Auto) 68.5 Lymph % (Auto) 17.4 L [place] % (Auto) 6.1 Eos % (Auto) 5.8 H Baso % (Auto) 2.2 H Neut # (Auto) 6200 Lymph # (Auto) 1600 [place] # (Auto) 600 Eos # (Auto) 500 H Baso # (Auto) 200 H APTT Sodium 135 L Potassium 4.1 Chloride 99 Carbon Dioxide 28 BUN 19 Creatinine 0.84 Estimated GFR > 60.0 BUN/Creatinine Ratio 22.6 H Glucose 126 H Lactate 1.0 Calcium 9.5 Magnesium Total Bilirubin 1.2 AST 39 ALT 43 Alkaline Phosphatase 76 Total Creatine Kinase 196 H CK-MB (CK-2) 0.27 CK-MB (CK-2) Rel Index 0.1 L Troponin I < 0.012 Total Protein 7.4 Albumin 4.2 Globulin 3.2 Albumin/Globulin Ratio 1.3 Procalcitonin 0.06 Urine Color Urine Appearance Urine pH Ur Specific [place] Urine Protein Urine Glucose (UA) Urine Ketones Urine Occult Blood Urine Nitrate Urine Bilirubin Urine Urobilinogen Ur Leukocyte Esterase Urine RBC Urine WBC Urine Bacteria Ur Culture Indicated? SARS-CoV-2 (PCR) 01/08/21 01/08/21 01/08/21 20:45 22:35 22:50 WBC RBC Hgb Hct MCV MCH MCHC RDW Plt Count Neut % (Auto) Lymph % (Auto) [place] % (Auto) Eos % (Auto) Baso % (Auto) Neut # (Auto) Lymph # (Auto) [place] # (Auto) Eos # (Auto) Baso # (Auto) APTT 32 Sodium Potassium Chloride Carbon Dioxide BUN Creatinine Estimated GFR BUN/Creatinine Ratio Glucose Lactate Calcium Magnesium Total Bilirubin AST ALT Alkaline Phosphatase Total Creatine Kinase CK-MB (CK-2) CK-MB (CK-2) Rel Index Troponin I Total Protein Albumin Globulin Albumin/Globulin Ratio Procalcitonin Urine Color Yellow Urine Appearance Clear Urine pH 7.0 Ur Specific [place] 1.010 Urine Protein Negative Urine Glucose (UA) Negative Urine Ketones Negative Urine Occult Blood Negative Urine Nitrate Negative Urine Bilirubin Negative Urine Urobilinogen 0.2 Ur Leukocyte Esterase Negative Urine RBC 0-1/hpf Urine WBC None seen Urine Bacteria None seen Ur Culture Indicated? Cult not indicated SARS-CoV-2 (PCR) Negative 01/09/21 01/09/21 01/09/21 05:00 05:00 05:00 WBC 9.0 RBC 4.34 L Hgb 14.5 Hct 42.0 MCV 96.8 MCH 33.4 MCHC 34.5 RDW 12.9 Plt Count 101 L Neut % (Auto) 63.9 Lymph % (Auto) 21.2 L [place] % (Auto) 8.8 Eos % (Auto) 5.4 H Baso % (Auto) 0.7 Neut # (Auto) 5700 Lymph # (Auto) 1900 [place] # (Auto) 800 Eos # (Auto) 500 H Baso # (Auto) 100 APTT 88 H* D Sodium 134 L Potassium 4.5 Chloride 101 Carbon Dioxide 27 BUN 15 Creatinine 0.68 Estimated GFR > 60.0 BUN/Creatinine Ratio 22.1 H Glucose 127 H Lactate Calcium 8.6 Magnesium 1.9 Total Bilirubin AST ALT Alkaline Phosphatase Total Creatine Kinase CK-MB (CK-2) CK-MB (CK-2) Rel Index Troponin I Total Protein Albumin Globulin Albumin/Globulin Ratio Procalcitonin Urine Color Urine Appearance Urine pH Ur Specific [place] Urine Protein Urine Glucose (UA) Urine Ketones Urine Occult Blood Urine Nitrate Urine Bilirubin Urine Urobilinogen Ur Leukocyte Esterase Urine RBC Urine WBC Urine Bacteria Ur Culture Indicated? SARS-CoV-2 (PCR) [facility] Medical History Arthritis Deep vein thrombosis of lower extremity History of deep venous thrombosis (DVT) of distal vein of right lower extremity History of osteosarcoma Osteosarcoma (~2000) Pulmonary embolism (2019) Pulmonary embolism on right Seasonal allergies Surgical History H/O lumbosacral spine surgery History of mandibular surgery History of nasal septoplasty Hx of partial thyroidectomy Hx of sinus surgery Hx of tonsillectomy Status post left partial knee replacement (2019) Family History (Updated 01/09/21 @ 01:59 by MARI Reed) Brother Cancer Father Old age Mother Alive and well Social History household members: significant other Smoking Status: Current every day smoker alcohol intake: current Assessment & Plan Assessment & Plan narrative: Mr. Ríos is a 65M with PMH right-sided DVT, right-sided PE both in 2020 and remote history of and osteosarcoma and removal, and S/P lumbar surgery on 01/04 presents with chest pain and shortness of breath found to have PE. 1. Left-sided posterior pulmonary embolism, acute, present on admission -started on heparin gtt in ED, will continue -likely provoke VTE in setting of surgery, with previous VTE consideration may be had to prolonged/indefinite anticoagulation -covering ortho provider agreed with anticoagulation per ED physician -patient at increased risk of bleeding due to recent spinal surgery -monitor neurlogic function closely -ultrasound of lower extremities negative for DVT -IV pain medications for pain 2. Current tobacco dependence, chronic -smoking cessation is encouraged due to its affects on healing -offered nictone patch 3. Recent spinal surgery -continue pain control, will need outpatient follow up -as above, monitor neurologic function closely Time Spent With Patient Critical Care time: I spent a total of [] minutes of critical care time on this patient's care today; this time is exclusive of procedural time. Quality VTE Deep Vein Thrombosis/Pulmonary Embolism Present on Admission: Yes
[2021-01-09] MEDS: HYDROMORPHONE 4 MG TABLET PO ×2 (09:06→13:45)
--- NOTE | 2021-01-09 10:56 | CM.DANOTE ---
DCP: Case received, EMR reviewed and met with patient. Introduced self and role. This technical planner is familiar with this patient, was here recently for lumbar fusion. DCP assessment was completed based upon information currently available. Patient is a 65 year old male who admitted yesterday evening to the care of the hospitalist team. PCP: Dr. Schwartz. Payer: confirmed: [employer]. Patient came to the hospital via private vehicle secondary to having some chest discomfort, as well as tachycardia. Patient was diagnosed with left sided posterior pulmonary embolism. Patient was here and discharged a couple of days ago from a L4-5 interbody fusion. He then went home afterwards. Patient has history of DVT. Met with patient in his room. This technical planner is familiar with this patient, for he was on the caseload recently for his lumbar fusion. He was discharged home. He resides with his significant other, Stacy Bennett, in [place]. He has been using a FWW since he was discharged home. He indicated, he was doing pretty well at first, but then, developed these symptoms, and came to the hospital. 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 Patient is alert and oriented. He is still employed at [employer]. P: DCP to continue to follow. Patient should be able to go home when P.E. is resolved. Jazmin Chambers RN/[facility] Hospitalist Discharge Planning/Care Management CM Discharge Assessment Start: 01/09/21 10:55 Freq: Status: Active Protocol: Document 01/09/21 10:55 (Rec: 01/09/21 10:56 [id number]) Discharge Planning Assessment Assigned Storeroom Supervisor Jazmin Chambers RN/[facility] Hospitalist Advance Directives? No History Provided By Patient,Medical Record Prior Living Arrangements House Household Members significant other Type of transporation used prior to Drives own vehicle admit Independent with ADL's Yes Is patient alert and oriented? Yes Needs Assistance With Meal Prep,Home Chores / Shopping Comment Patient was recently discharged after back surgery. Caregiver for Another No DME Already Rented / Owned FWW / Walker Comment Patient recently started using FWW post surgery. Barriers to Discharge No Discharge Plan Home Transportation Arrangement Significant other Referrals Initiated None needed Whiteboard Updated in Patient Room with Yes name and ext. # of Storeroom Supervisor Review Status In Process Next Review Type Continued Stay Review
[2021-01-09] MEDS: polyethylene glycoL 3350 17 GM POWD.PACK PO (11:37)
[2021-01-09] MEDS: DOCUSATE 100 MG CAPSULE PO ×2 (11:37→19:37)
[2021-01-09] MEDS: SODIUM CHLORIDE 0.9% FLUSH 10 ML IV ×2 (11:38→19:38)
--- NOTE | 2021-01-09 12:18 | PC.NURSE ---
Patient alert, oriented c/o back and chest pain, with deep breathing, sats on 2.5L 95-96%. gave 4mg IVP morphine for pain. Patient refusing to reposition in bed, agreeable to lowering head to 35 degrees. Scd's on, heparin drip continues.
--- NOTE | 2021-01-09 12:30 | PT-IP ANOTE ---
PT eval order received. PT admitted for PE and just started heparin last night at ~ 2306. informed nurse and doctor regarding PT holding eval today and will eval tomorrow. Informed regarding PT protocol of at least 24 hours on blood thinners on pt's with PE/DVT. Nurse and doctor agreed.
[2021-01-09] MEDS: ACETAMINOPHEN 325 MG TABLET 975 MG PO ×2 (15:39→19:37)
[2021-01-09] MEDS: HEPARIN DRIP 25,000 UNIT/500 ML IV.SOLN 29.393 UNIT IV (16:04)
[2021-01-09] MEDS: HYDROMORPHONE 2 MG TABLET 4 MG PO ×2 (17:51→21:30)
--- NOTE | 2021-01-09 21:10 | PC.NURSE ---
Pt pain being controlled with Morphine 4 mg IV and dilaudid 4 mg by mouth. Pt on 2.5 L NC sating in the mid 90's. lungs are diminished/tight. Pt able to ambulate to the bathroom with SBA tonight. voided large amount of clear yellow urine. pt on heparin gtt at 29.3 ml, next ptt schedule for the AM
[2021-01-09] MEDS: SENNOSIDES 8.6 MG TABLET 17.2 MG PO (21:30)
[2021-01-10] VITALS (13 sets, daily range): BP systolic 119–142; BP diastolic 64–84; PULSE 86–103; RESP 18–26; TEMP 36.4–37.7; O2SAT 91–96
[2021-01-10] MEDS: HYDROMORPHONE 2 MG TABLET 4 MG PO ×5 (01:28→19:18)
[2021-01-10] MEDS: MORPHINE 4 MG/ML INJ IV ×5 (03:27→23:31)
[2021-01-10 06:14] LABS: Hematocrit 40.7 % (41-53); Hemoglobin 14.3 g/dL (13.5-17.5); Mean Corpuscular HGB Conc 35.1 % (30-36); Mean Corpuscular Hemoglobin 33.7 PG (26-34); Platelet Count 96 X10^3/uL (150-400); Red Blood Cell Count 4.24 X10^6/uL (4.5-5.9); Red Cell Distribution Width 12.8 % (11.6-14.8); White Blood Cell Count 8.7 X10^3/uL (4.5-11.0)
[2021-01-10 06:24] LABS: BUN Creatinine Ratio 20.6 (6-22); Blood Urea Nitrogen 13 mg/dL (9-20); Calcium 9.1 mg/dL (8.4-10.2); Carbon Dioxide 30 mmol/L (22-32); Chloride 98 mmol/L (98-107); Estimated Glomerular Filt Rate > 60.0 mL/min (>60); Glucose 117 mg/dL (80-110); HEMOLYSIS < 15 (0-50); PTT Partial Thromboplastin Tim 51 SECONDS (26.4-36.2); Potassium 4.4 mmol/L (3.4-5.1); Sodium 133 mmol/L (137-145)
[2021-01-10] MEDS: HEPARIN 5,000 UNIT/ML VIAL 2000 UNIT IV ×2 (06:53→14:12)
[2021-01-10] MEDS: BISACODYL 10 MG SUPP PR (08:12)
[2021-01-10] MEDS: ACETAMINOPHEN 325 MG TABLET 975 MG PO ×3 (08:12→20:40)
[2021-01-10] MEDS: polyethylene glycoL 3350 17 GM POWD.PACK PO (08:12)
[2021-01-10] MEDS: SODIUM CHLORIDE 0.9% FLUSH 10 ML IV ×3 (08:13→23:32)
[2021-01-10] MEDS: hydrOXYzine pamoate 25 MG CAPSULE PO ×3 (08:29→22:45)
--- NOTE | 2021-01-10 08:55 | PC.NURSE ---
Addendum entered by Janett Stanley R.N. 01/10/21 11:24: Patient had medium BM, ambulated in archer with physical therapy. Patient reports pain is better, 09/26. Original Note: Patient alert, oriented SBA to bathroom, gait is steady but slow. Patient reports pain to back and chest 09/26, states it may a bit better than yesterday. Given 4mg IVP mophine and 25mg vistaril for c/o back spasms. Patient agreeable to sit in chair, suppository also given.
--- NOTE | 2021-01-10 11:02 | PT.IIE ---
Current Diagnoses Other pulmonary embolism without acute cor pulmonale (01/08/21) Medical History (Last Reviewed 01/09/21 @ 01:24 by MARI Reed) Arthritis Deep vein thrombosis of lower extremity History of deep venous thrombosis (DVT) of distal vein of right lower extremity History of osteosarcoma Osteosarcoma (~2000) Pulmonary embolism (2019) Pulmonary embolism on right Seasonal allergies Physical Therapy Inpatient Evaluation/Re-Eval M1 PT/OT-IP Prior Functional Status Start: 01/10/21 08:29 Freq: NEEDED Status: Active Protocol: Document 01/10/21 11:02 AW (Rec: 01/10/21 11:37 AW [id number]) Medical Review Prior Functional Status Medical History Reviewed Yes Communication WNL Mobility and Gait Pt is independent in all regards at baseline. He had L4 -5 TLIF on 01/04/21 and has been using FWW for mobility since that time. Activities of Daily Living and IADL's Independent. Social History Household Members significant other Living Arrangements House Number of Floors (Floors) One Floor Number of Stairs To Enter/Railing? 2 platform steps to enter, no rails. 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 He has an adjustable bed. 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 M2 PT-IP Current Condition Start: 01/10/21 08:29 Freq: NEEDED Status: Active Protocol: Document 01/10/21 11:02 AW (Rec: 01/10/21 11:37 AW [id number]) Physical Therapy Current Condition Current Condition Evaluation Date 01/10/21 Treatment Diagnosis L pulmonary embolism; impaired mobility and gait Onset Date 01/08/21 M3 PT-IP Subjective Start: 01/10/21 08:29 Freq: NEEDED Status: Active Protocol: Document 01/10/21 11:02 AW (Rec: 01/10/21 11:37 AW [id number]) Subjective Physical Therapy Visit Type Type Initial Evaluation Visit Start Time 10:38 Visit Stop Time 11:02 Total Visit Minutes 24 Notes Pt's spouse was present throughout this encounter. Number of WHEAT COMBINE DRIVER Visits 0 Physical Therapy Visit Comments Patient Comments I got up to the bathroom already this morning but I'm up for doing more. Patient Goals Return home with spouse support Therapy Pain Assessment Pain When Pain Assessed During Mobility Pain Present Pain Present Pain Reported Location chest Intensity 7 Scale Used Numeric (0 - 10) lower back Intensity 7 Scale Used Numeric (0 - 10) M4 PT-IP Mobility and Gait Start: 01/10/21 08:29 Freq: NEEDED Status: Active Protocol: Document 01/10/21 11:02 AW (Rec: 01/10/21 11:37 AW [id number]) PT-Bed Mobility Assessment Rolling Type of Rolling Log Rolling,Roll to Right Level of Assist Standby Assistance Supine to Sit Supine to Sit Standby Assistance Scooting Scooting to Edge of Bed Standby Assistance PT-Transfer Assessment Sit to and From Stand Sit to and from Stand Standby Assistance,Use of Upper Extremities Equipment Transfer Assistive Device Gait Belt,Front Wheeled Walker Orthotic/Prosthetic Devices or Brace: No Transfers Transfer Destination Chair Transfer Technique ambulated with FWW Transfer Ability Level of Assist Standby Assistance Comments Mobility Comments Pt was sitting up in bed as PT arrived. SpO2 was 94-95% on 2L O2 via NC. BP 122/70. Pt completed log roll and sat up EOB SBA. Transferred pt to tank O2. He used FWW to ambulate to the toilet and stood to void. He walked to the sink SBA and completed handwashing. He walked in the halls with FWW SBA as PT managed IV and O2. SpO2 was steady 95-97% on 2L NC. On return to the room, pt transferred to the chair SBA and was left there with call light and tray table in reach. Gait Assessment Gait Gait Assistance Required: Standby Assistance Distance (Feet) 220 Assistive Devices Assistive Device Gait Belt,Front Wheeled Walker Orthotic/Prosthetic Devices or Brace: No Gait Deviations General Gait Pattern Decreased Stride Length, Decreased Feet Clearance Factors Limiting Gait Function Factors Limiting Gait Function Decreased Activity Tolerance, Decreased Strength,Limited Range of Motion,Pain Comments Gait Comments Pt ambulated in the halls with SBA and assist for line management. He needed four standing rest breaks and complained of chest pain 7-8/ 10 which was consistent with resting pain rating. SpO2 was stable on 2L O2. Stair Climbing Assessment Comments Stair Climbing Comments Not assessed. PT-Balance Assessment Sitting Balance and Reactions Static Sitting Balance Ability Good Dynamic Sitting Balance Ability Good Standing Balance and Reactions Static Standing Balance Ability Good Dynamic Standing Balance Ability Fair Device Used FWW M5 PT-IP Objective Assessments Start: 01/10/21 08:29 Freq: NEEDED Status: Active Protocol: Document 01/10/21 11:02 AW (Rec: 01/10/21 11:37 AW [id number]) Orientation Orientation/Cognition Level of Alertness Alert Orientation Name,Day of Week,Place, Situation Language Function Ability No Deficits Noted Safety Awareness Understands Safety Issues Memory Description No Deficits Noted Gross Range of Motion Lower Extremity ROM Assessment Within Functional Limits Strength Lower Extremity Strength Assessment Bilaterally Impaired Hip 3+/5 Knee 4-/5 Sensation Assessment Sensation Gross Sensation WNL Muscle Tone Muscle Tone WNL Yes M6 PT-IP Treatment Start: 01/10/21 08:29 Freq: NEEDED Status: Active Protocol: Document 01/10/21 11:02 AW (Rec: 01/10/21 11:37 AW [id number]) Physical Therapy Treatment Education Education Provided Precautions,Safety M7 PT-IP Assessment and Plan Start: 01/10/21 08:29 Freq: NEEDED Status: Active Protocol: Document 01/10/21 11:02 AW (Rec: 01/10/21 11:37 AW [id number]) PT Summary Assessment and Plan Potential Rehabilitation Potential Good Status of Condition at Evaluation Evolving Summary Impairments Pain,ROM,Strength,Balance, Transfers,Gait,Activity Tolerance Assessment Summary Eliezer is a 65 yo man seen for PT evaluation with admitting diagnosis of left pulmonary embolism (on heparin >24 hours ). He had L4-5 TLIF on and was discharged but returned 2 days later with chest pain. Pt is typically independent in all regards but has been using FWW for ambulation since surgery. He required SBA with FWW during evaluation and was limited primarily by chest and back pain. SpO2 was stable 94-97% on 2L O2 via NC. PT anticipates he will be safe to discharge home with assist once medically cleared. Goals Bed Mobility Goal Independent Transfer Goal Independent,Front Wheeled Walker Gait Goal Independent,Front Wheel Walker Gait Distance 200 Other Goals - up/down 2 platform staps with FWW SBA Days to Meet Goals 5 Frequency of Treatment Frequency Of Treatment Once a Day Treatment Plan Physical Therapy Treatment Plan Bed Mobility Training,Transfer Training,Gait Training, Therapeutic Exercise,Balance Retraining,Post Op Education, Discharge Planning,Hot or Cold Pack Other Recommendations and Next Treatment reinforce precautions; Focus progress gait with FWW; stairs if able. Precautions Lumbar Precautions Log Roll,No Twisting,Limit Bending,Lifting Restriction of 10 lbs,Gait Belt above Incisional Area Recommendations To Nursing Amount of Assist Needed Standby Assistance,1 Person Assist Discharge Recommendations PT Discharge Recommendations Home with Assistance Transportation Needs at Discharge Private Vehicle
[2021-01-10] MEDS: HEPARIN DRIP 25,000 UNIT/500 ML IV.SOLN 31.3 UNIT IV (11:09)
--- NOTE | 2021-01-10 13:18 | CM.DPC ---
DCP Cont: Patient was able to work with P.T. today. He did do some ambulating in the hallway. He does have his spouse at home, who is supportive. P: DCP to continue to follow. Plan is for patient to return home when he is deemed medically stable. Jazmin Chambers RN/Visual Merchandising Assistant
[2021-01-10 13:56] LABS: PTT Partial Thromboplastin Tim 48 SECONDS (26.4-36.2)
--- NOTE | 2021-01-10 15:51 | P.PN_ITS ---
Subjective Subjective Date Patient Seen: 01/10/21 Time Patient Seen: 08:00 Interval history: Today he feels improved. His shortness of breath is less. His pain is improving. He is eager to go home, but his oxygen saturation remains low off oxygen. Exam Vital Signs (past 8 hours): - 01/10/21 08:00 01/10/21 13:00 01/10/21 13:16 Temperature 100 F H 98.7 F Pulse Rate 91 H 101 H Respiratory Rate 22 20 Blood Pressure 124/78 119/70 Pulse Oximetry 93 92 92 01/10/21 14:16 01/10/21 14:17 01/10/21 15:20 Temperature 99.5 F Pulse Rate 103 H Respiratory Rate 18 Blood Pressure 142/84 H Pulse Oximetry 91 95 95 Oxygen Delivery Method Nasal Cannula Oxygen Flow Rate 2 Narrative Exam Narrative: Gen: Alert, oriented, no acute distress Resp: clear bilaterally CV: regular rate and rhythm, no murmurs Abd: soft, non-tender Neuro: Alert and oriented, moving all extremities with no focal deficits Psyche: withdrawn affect Objective Labs Result Diagrams: 01/10/21 06:00 01/10/21 06:00 Labs: Laboratory Results - last 24 hr 01/10/21 01/10/21 01/10/21 06:00 06:00 06:00 WBC 8.7 RBC 4.24 L Hgb 14.3 Hct 40.7 L MCV 96.0 MCH 33.7 MCHC 35.1 RDW 12.8 Plt Count 96 L APTT 51 H D Sodium 133 L Potassium 4.4 Chloride 98 Carbon Dioxide 30 BUN 13 Creatinine 0.63 L Estimated GFR > 60.0 BUN/Creatinine Ratio 20.6 Glucose 117 H Calcium 9.1 Magnesium 2.0 01/10/21 13:15 WBC RBC Hgb Hct MCV MCH MCHC RDW Plt Count APTT 48 H Sodium Potassium Chloride Carbon Dioxide BUN Creatinine Estimated GFR BUN/Creatinine Ratio Glucose Calcium Magnesium [facility] Medical History Arthritis Deep vein thrombosis of lower extremity History of deep venous thrombosis (DVT) of distal vein of right lower extremity History of osteosarcoma Osteosarcoma (~2000) Pulmonary embolism (2019) Pulmonary embolism on right Seasonal allergies Surgical History H/O lumbosacral spine surgery History of mandibular surgery History of nasal septoplasty Hx of partial thyroidectomy Hx of sinus surgery Hx of tonsillectomy Status post left partial knee replacement (2019) Family History (Updated 01/09/21 @ 01:59 by MARI Reed) Brother Cancer Father Old age Mother Alive and well Social History household members: significant other Smoking Status: Current every day smoker alcohol intake: current Assessment & Plan Assessment & Plan narrative: Mr. Ríos is a 65M with PMH right-sided DVT, right-sided PE both in 2020 and remote history of and osteosarcoma and removal, and S/P lumbar surgery on 01/04 presents with chest pain and shortness of breath found to have PE. 1. Left-sided posterior pulmonary embolism, acute, present on admission -started on heparin gtt in ED, will continue -likely provoke VTE in setting of surgery, with previous VTE consideration may be had to prolonged/indefinite anticoagulation -covering ortho provider agreed with anticoagulation per ED physician -patient at increased risk of bleeding due to recent spinal surgery -monitor neurlogic function closely -ultrasound of lower extremities negative for DVT -IV pain medications for pain 2. Current tobacco dependence, chronic -smoking cessation is encouraged due to its affects on healing -offered nictone patch 3. Recent spinal surgery -continue pain control, will need outpatient follow up -as above, monitor neurologic function closely Time Spent With Patient Critical Care time: I spent a total of [] minutes of critical care time on this patient's care today; this time is exclusive of procedural time. Quality VTE Deep Vein Thrombosis/Pulmonary Embolism Present on Admission: Yes
[2021-01-10 17:52] LABS: Hematocrit 39.4 % (41-53); Hemoglobin 13.7 g/dL (13.5-17.5); Mean Corpuscular HGB Conc 34.8 % (30-36); Mean Corpuscular Hemoglobin 33.5 PG (26-34); Platelet Count 104 X10^3/uL (150-400); White Blood Cell Count 7.8 X10^3/uL (4.5-11.0)
[2021-01-10 19:45] LABS: PTT Partial Thromboplastin Tim 67 SECONDS (26.4-36.2)
[2021-01-10] MEDS: SENNOSIDES 8.6 MG TABLET 17.2 MG PO (20:40)
[2021-01-10] MEDS: GABAPENTIN 300 MG CAPSULE PO (21:57)
--- NOTE | 2021-01-11 01:00 | PC.NURSE ---
Addendum entered by Deedee Willis R.N. 01/11/21 06:36: Appears that weight is up 3.2kg; reported to alisson Rush RN, and will have day staff rezero bed when patient up next time and reweigh to verify. Patient currently asleep. Original Note: Patient is alert and oriented with very flat affect. Breath sounds diminished in left LL but otherwise CTA. On oxygen at 2L/min per NC with sat of 96%; is on continuous oximetry. Denies SOB at rest but states he does get SOB with exertion and has increased pain with deep breathing. Complained of 8/10 left lower rib pain posteriorly radiating up back to shoulders and neck so was medicated with IV Morphine and is currently asleep. HRR with telemetry reading of SR. Denied nausea. BT present and abdomen is soft. Using urinal to void; urine is clear, light yellow. Denied dysuria, frequency or urgency. Is able to move himself in bed. Gait not assessed but evening RN reported patient was walking in halls with walker and 1 assist on previous shift. Dressing to back is CDI (had recent back surgery). Bilateral calf SCD's put on at time of assessment. Heparin infusing. Fall risk score is high and bed alarm is activated.
[2021-01-11] MEDS: MORPHINE 4 MG/ML INJ IV ×2 (02:36→06:52)
[2021-01-11] MEDS: ACETAMINOPHEN 325 MG TABLET 650 MG PO ×2 (02:37→08:39)
[2021-01-11] MEDS: SODIUM CHLORIDE 0.9% FLUSH 10 ML IV ×2 (02:38→06:52)
[2021-01-11] MEDS: HEPARIN DRIP 25,000 UNIT/500 ML IV.SOLN 33.3 UNIT IV (02:38)
[2021-01-11 02:43] VITALS: BP 149/76; PULSE 88; RESP 19; TEMP 36.4; O2SAT 97
[2021-01-11] MEDS: HYDROMORPHONE 2 MG TABLET 4 MG PO ×3 (03:43→12:49)
[2021-01-11 05:50] LABS: Hematocrit 37.9 % (41-53); Hemoglobin 13.1 g/dL (13.5-17.5); Mean Corpuscular HGB Conc 34.6 % (30-36); Mean Corpuscular Volume 95.5 fL (80-100); Platelet Count 113 X10^3/uL (150-400); Red Blood Cell Count 3.97 X10^6/uL (4.5-5.9); Red Cell Distribution Width 12.8 % (11.6-14.8)
[2021-01-11 05:52] LABS: PTT Partial Thromboplastin Tim 67 SECONDS (26.4-36.2)
[2021-01-11 05:56] LABS: BUN Creatinine Ratio 16.2 (6-22); Blood Urea Nitrogen 11 mg/dL (9-20); Carbon Dioxide 31 mmol/L (22-32); Chloride 99 mmol/L (98-107); Estimated Glomerular Filt Rate > 60.0 mL/min (>60); Glucose 127 mg/dL (80-110); HEMOLYSIS < 15 (0-50); Potassium 4.3 mmol/L (3.4-5.1); Sodium 132 mmol/L (137-145)
[2021-01-11 06:13] VITALS: O2SAT 95
--- NOTE | 2021-01-11 07:48 | PM.PN.1 ---
Subjective Subjective Date Patient Seen: 01/11/21 Time Patient Seen: 07:48 Interval history: The patient is complaining of moderate to severe low back pain as well as chest pain and shortness of breath. He notes his shortness of breath is resolving somewhat his current treatment. He has a history of pulmonary embolism in the past. He just underwent an L4 through 5 TLIF surgery on 01/04/2021. The patient notes he has been very mobile since surgery. Overall, he is improving and would like to be discharged home when safe. Exam Vital Signs (past 8 hours): - 01/10/21 23:56 01/11/21 02:43 01/11/21 06:13 Temperature 97.6 F 97.6 F Pulse Rate 94 H 88 Respiratory Rate 19 19 Blood Pressure 120/64 149/76 H Pulse Oximetry 96 97 95 Oxygen Delivery Method Nasal Cannula Oxygen Flow Rate 1 Narrative Exam Narrative: 65-year-old male, resting in bed, mild distress and mildly flat affect. Incision dressing is clean, dry, intact. No surrounding erythema or induration. Bilateral lower extremity motor functions are grossly intact. Sensation is grossly intact to light touch in bilateral lower extremities. Bilateral calves are soft, nontender palpation, he notes his previous left calf tenderness is resolving. Objective Labs Result Diagrams: 01/11/21 05:30 01/11/21 05:30 Labs: Laboratory Results - last 24 hr 01/10/21 01/10/21 01/10/21 13:15 17:28 19:28 WBC 7.8 RBC 4.10 L Hgb 13.7 Hct 39.4 L MCV 96.0 MCH 33.5 MCHC 34.8 RDW 13.0 Plt Count 104 L APTT 48 H 67 H D Sodium Potassium Chloride Carbon Dioxide BUN Creatinine Estimated GFR BUN/Creatinine Ratio Glucose Calcium Magnesium 01/11/21 01/11/21 01/11/21 05:30 05:30 05:30 WBC 9.0 RBC 3.97 L Hgb 13.1 L Hct 37.9 L MCV 95.5 MCH 33.0 MCHC 34.6 RDW 12.8 Plt Count 113 L APTT 67 H Sodium 132 L Potassium 4.3 Chloride 99 Carbon Dioxide 31 BUN 11 Creatinine 0.68 Estimated GFR > 60.0 BUN/Creatinine Ratio 16.2 Glucose 127 H Calcium 9.0 Magnesium 2.0 REPLACED BY [facility] Medical History Arthritis Deep vein thrombosis of lower extremity History of deep venous thrombosis (DVT) of distal vein of right lower extremity History of osteosarcoma Osteosarcoma (~2000) Pulmonary embolism (2019) Pulmonary embolism on right Seasonal allergies Surgical History H/O lumbosacral spine surgery History of mandibular surgery History of nasal septoplasty Hx of partial thyroidectomy Hx of sinus surgery Hx of tonsillectomy Status post left partial knee replacement (2019) Family History Brother Cancer Father Old age Mother Alive and well Social History household members: significant other Smoking Status: Current every day smoker alcohol intake: current Assessment & Plan Assessment & Plan narrative: Assessment is acute PE status post L4 through 5 TLIF on 01/04/2021. Postoperative pain, marginally controlled. Plan: -Limit bending, lifting, twisting. Weightbearing as tolerated with front wheel walker. -PE: Please refer to current anticoagulation per hospitalist. -continue with oral Dilaudid -DC home when cleared by PT and hospitalist Time Spent With Patient Critical Care time: I spent a total of [] minutes of critical care time on this patient's care today; this time is exclusive of procedural time. Quality VTE Deep Vein Thrombosis/Pulmonary Embolism Present on Admission: Yes
[2021-01-11 08:00] VITALS: BP 113/66; PULSE 83; RESP 18; TEMP 36.4; O2SAT 94
[2021-01-11] MEDS: polyethylene glycoL 3350 17 GM POWD.PACK PO (08:39)
[2021-01-11] MEDS: hydrOXYzine pamoate 25 MG CAPSULE PO (08:39)
[2021-01-11] MEDS: GABAPENTIN 300 MG CAPSULE PO (08:39)
[2021-01-11] MEDS: DOCUSATE 100 MG CAPSULE PO (08:40)
[2021-01-11 09:01] VITALS: O2SAT 93
--- NOTE | 2021-01-11 09:47 | PC.NURSE ---
Addendum entered by Janett Stanley R.N. 01/11/21 14:22: Went over dc instructions and medications with patient, questions were answered.[facility] sent to [facility], patient had all belongings. Addendum entered by Janett Stanley R.N. 01/11/21 11:18: Patient ambulated around nursing station on RA sats remained at 92%. Original Note: Patient alert oriented rates pain to chest and back /10, given 4mg po dilaudid. Patient ambulating in archer with therapy. Sats on 1L 93-94% Using I.S gettting up to 1100.
--- NOTE | 2021-01-11 09:53 | PT.IPTN ---
Current Diagnoses Other pulmonary embolism without acute cor pulmonale (01/08/21) Physical Therapy Treatment Note M2 PT-IP Current Condition Start: 01/10/21 08:29 Freq: NEEDED Status: Active Protocol: Document 01/10/21 11:02 AW (Rec: 01/10/21 11:37 AW [id number]) Physical Therapy Current Condition Current Condition Evaluation Date 01/10/21 Treatment Diagnosis L pulmonary embolism; impaired mobility and gait Onset Date 01/08/21 M3 PT-IP Subjective Start: 01/10/21 08:29 Freq: NEEDED Status: Active Protocol: Document 01/11/21 09:20 KS (Rec: 01/11/21 11:38 KS [id number]) Subjective Physical Therapy Visit Type Type Treatment Note Visit Start Time 09:20 Visit Stop Time 09:53 Total Visit Minutes 33 Number of ASH HANDLER Visits 1 Physical Therapy Visit Comments Patient Comments Pt agreeable to working w/ therapy. Patient Goals Return home with spouse support Therapy Pain Assessment Pain When Pain Assessed During Mobility Pain Present Pain Present Pain Reported M4 PT-IP Mobility and Gait Start: 01/10/21 08:29 Freq: NEEDED Status: Active Protocol: Document 01/11/21 09:20 KS (Rec: 01/11/21 11:38 KS [id number]) PT-Bed Mobility Assessment Rolling Type of Rolling Log Rolling,Roll to Right Level of Assist Standby Assistance Supine to Sit Supine to Sit Standby Assistance Scooting Scooting to Edge of Bed Standby Assistance PT-Transfer Assessment Sit to and From Stand Sit to and from Stand Standby Assistance,Use of Upper Extremities Equipment Transfer Assistive Device Gait Belt,Front Wheeled Walker Orthotic/Prosthetic Devices or Brace: No Transfers Transfer Destination Chair Transfer Technique ambulated with FWW Transfer Ability Level of Assist Standby Assistance Comments Mobility Comments Pt in bed upon arrival from PT on room air. SBA for logroll to R and sidelying<>sit. Applied gait belt and 2L O2 in preparation for ambulation. Pt SBA for sit<>stand w/ FWW. Pt then ambulated ~220 ft w/ FWW and SBA to CGA on 3L O2. Pt ambulated slowly and cautiously and reported chest and back pain but reported less pain than yesterday. Pt took 1x standing rest break in which he became tearful and reported feeling scared and overwhelmed. Pt returned to room and stand<>sit in chair SBA. Pt blew nose, small amount of bright red blood present, RN present and aware. Pt left reclined in chair w/ all needs in reach. Gait Assessment Gait Gait Assistance Required: Standby Assistance,Contact Guard Assist Distance (Feet) 220 Assistive Devices Assistive Device Gait Belt,Front Wheeled Walker Orthotic/Prosthetic Devices or Brace: No Gait Deviations General Gait Pattern Decreased Stride Length, Decreased Feet Clearance, Flexed Trunk Factors Limiting Gait Function Factors Limiting Gait Function Decreased Activity Tolerance, Decreased Strength,Limited Range of Motion,Pain Comments Gait Comments Please refer to mobility section for details. Stair Climbing Assessment Comments Stair Climbing Comments Not assessed. PT-Balance Assessment Sitting Balance and Reactions Static Sitting Balance Ability Good Dynamic Sitting Balance Ability Good Standing Balance and Reactions Static Standing Balance Ability Good Dynamic Standing Balance Ability Fair Device Used FWW M5 PT-IP Objective Assessments Start: 01/10/21 08:29 Freq: NEEDED Status: Active Protocol: Document 01/10/21 11:02 AW (Rec: 01/10/21 11:37 AW [id number]) Orientation Orientation/Cognition Level of Alertness Alert Orientation Name,Day of Week,Place, Situation Language Function Ability No Deficits Noted Safety Awareness Understands Safety Issues Memory Description No Deficits Noted Gross Range of Motion Lower Extremity ROM Assessment Within Functional Limits Strength Lower Extremity Strength Assessment Bilaterally Impaired Hip 3+/5 Knee 4-/5 Sensation Assessment Sensation Gross Sensation WNL Muscle Tone Muscle Tone WNL Yes M6 PT-IP Treatment Start: 01/10/21 08:29 Freq: NEEDED Status: Active Protocol: Document 01/11/21 09:20 KS (Rec: 01/11/21 11:38 KS [id number]) Physical Therapy Treatment Education Education Provided Precautions,Safety M7 PT-IP Assessment and Plan Start: 01/10/21 08:29 Freq: NEEDED Status: Active Protocol: Document 01/11/21 09:20 KS (Rec: 01/11/21 11:38 KS [id number]) PT Summary Assessment and Plan Potential Rehabilitation Potential Good Status of Condition at Evaluation Evolving Summary Impairments Pain,ROM,Strength,Balance, Transfers,Gait,Activity Tolerance Assessment Summary Pt continues to require SBA for mobilty and transfers, SBA to CGA for ambulation. Pt tolerated ~220 ft ambulation w / FWW and SBA to CGA on 3L O2. Pt ambulated slowly w/ decreased foot clerance and stride and flexed trunk. Pt took 1x standing rest break and became tearful stating he was scared and overwhelmed. PT anticipates he will be safe to discharge home with assist once medically cleared. Goals Bed Mobility Goal Independent Transfer Goal Independent,Front Wheeled Walker Gait Goal Independent,Front Wheel Walker Gait Distance 200 Other Goals - up/down 2 platform staps with FWW SBA Days to Meet Goals 5 Frequency of Treatment Frequency Of Treatment Once a Day Treatment Plan Physical Therapy Treatment Plan Bed Mobility Training,Transfer Training,Gait Training, Therapeutic Exercise,Balance Retraining,Post Op Education, Discharge Planning,Hot or Cold Pack Other Recommendations and Next Treatment reinforce precautions; Focus progress gait with FWW; stairs if able. Precautions Lumbar Precautions Log Roll,No Twisting,Limit Bending,Lifting Restriction of 10 lbs,Gait Belt above Incisional Area Recommendations To Nursing Amount of Assist Needed Standby Assistance,1 Person Assist Discharge Recommendations PT Discharge Recommendations Home with Assistance Transportation Needs at Discharge Private Vehicle
--- NOTE | 2021-01-11 12:49 | PM.DS.1 ---
History of Present Illness History of Present Illness Date Patient Seen: 01/11/21 Chief complaint: chest pain , short of breath s/p surgery Narrative: Eliezer Weathers is a 65 y.o. male with a prior history of a right-sided DVT, a right lower lung PE both in May of 2019 is status post POD #4 L4-5 postero-lateral and posterior interbody fusion by Dr. Rose returned discharged on January 07 returns today with chest pain and left-sided back pain.? The patient is having a difficult time talking to due to pain.? However earlier on 1020 he stated at 4:30 a.m. his lung started to hurt to the point where he felt the need to come in.? He stated that he did have left-sided calf achiness which is since resolved he does not have any numbing or tingling in his extremities and did inform the ED provider that he had some tingling in his calf before it became achy.? Patient was found to have had a left his posterior pulmonary embolism. CTA ordered by the emergency room indicated the following findings: 1. Acute peripheral pulmonary embolus, left lower lobe.? No central pulmonary emboli.? No evidence of acute right heart strain. 2. Patchy left basilar atelectasis.?The emergency room initiated a heparin bolus and drip.? Patient's temperature was 98.9?, blood pressure 137/78, heart rate 127, respiratory rate 30, oxygen saturation of 96% on 4 L, he weighs 81.4 kg with a BMI of 25.8.? WBC is 9.1 RBC 4.44 hemoglobin and hematocrit are 15.1 and 42.9 respectively, platelet count is 98 sodium was 135 rest of his chemistries are within normal limits, glucose mildly elevated 126 likely stress troponin is within normal limits, COVID-19 PCR is negativ Discharge Providers Provider Date of admission: 01/08/21 23:07 Discharge Date: 01/11/21 Primary care physician: Chapito Schwartz MD Consults: 01/09/21 00:32 Consult to Discharge Planning Routine Comment: 01/09/21 11:11 Consult to Physical Therapy Evaluate & Treat Comment: recent TLIF,PE's Physician Instructions: Evaluate and Treat 01/10/21 14:17 Consult to Respiratory Therapy Evaluate & Treat Comment: Physician Instructions: Evaluate and treat 01/11/21 02:32 Consult to Physician Routine Comment: Consulting Provider: Rg Rose Reason for consultation: s/p 1 week lumbar fusion, intractable pain, PE Has provider been notified: No 01/11/21 07:45 Consult to Respiratory Therapy Evaluate & Treat Comment: home o2 evaluation Physician Instructions: Evaluate and treat Discharge provider: Anna Johnston MD Summary Hospital Course Discharge Diagnosis: 1. Pulmonary embolus 2. History of DVT 3. Status post L4-L5 posterior lateral posterior interbody fusion Hospital Course: Patient was admitted to the hospital for an acute pulmonary embolus. He was started on IV heparin which he continue for 4 days. Patient was able to be tapered off oxygen. He had no more chest pain or shortness of breath. There was concern regarding his recent surgery. However there was no evidence of bleeding. Patient was able to be transition to apixaban and discharged home. Patient will follow-up with Dr. Dumont as indicated. Needs to follow-up with his primary care provider regarding his PE as well. Patient was deemed appropriate and discharged home. Status at Discharge Cognitive/behavioral status at discharge: oriented Functional status at discharge: independent ambulation Overall status at discharge: patient is progressing back to baseline Exam Vital Signs (past 8 hours): - 01/11/21 06:13 01/11/21 08:00 01/11/21 09:01 Temperature 97.5 F L Pulse Rate 83 Respiratory Rate 18 Blood Pressure 113/66 Pulse Oximetry 95 94 93 Oxygen Delivery Method Nasal Cannula Oxygen Flow Rate 1 Narrative Exam Narrative: Pleasant gentleman in no acute distress Resp Other: Lungs clear to auscultation Cardio Other: Cardiac exam: Regular rate and rhythm normal S1-S2 Extrem Other: Extremity no edema Objective Labs Result Diagrams: 01/11/21 05:30 01/11/21 05:30 Labs: Laboratory Results - last 24 hr 01/10/21 01/10/21 01/10/21 13:15 17:28 19:28 WBC 7.8 RBC 4.10 L Hgb 13.7 Hct 39.4 L MCV 96.0 MCH 33.5 MCHC 34.8 RDW 13.0 Plt Count 104 L APTT 48 H 67 H D Sodium Potassium Chloride Carbon Dioxide BUN Creatinine Estimated GFR BUN/Creatinine Ratio Glucose Calcium Magnesium 01/11/21 01/11/21 01/11/21 05:30 05:30 05:30 WBC 9.0 RBC 3.97 L Hgb 13.1 L Hct 37.9 L MCV 95.5 MCH 33.0 MCHC 34.6 RDW 12.8 Plt Count 113 L APTT 67 H Sodium 132 L Potassium 4.3 Chloride 99 Carbon Dioxide 31 BUN 11 Creatinine 0.68 Estimated GFR > 60.0 BUN/Creatinine Ratio 16.2 Glucose 127 H Calcium 9.0 Magnesium 2.0 PFSH Medical History Arthritis Deep vein thrombosis of lower extremity History of deep venous thrombosis (DVT) of distal vein of right lower extremity History of osteosarcoma Osteosarcoma (~2000) Pulmonary embolism (2019) Pulmonary embolism on right Seasonal allergies Surgical History H/O lumbosacral spine surgery History of mandibular surgery History of nasal septoplasty Hx of partial thyroidectomy Hx of sinus surgery Hx of tonsillectomy Status post left partial knee replacement (2019) Family History Brother Cancer Father Old age Mother Alive and well Social History household members: significant other Smoking Status: Current every day smoker alcohol intake: current Discharge Assessment & Plan Assessment and Plan Assessment: 1. Pulmonary embolus 2. Status post L4-L5 posterolateral and posterior interbody fusion Plan of Treatment: Discharge home on medications as prescribed Discharge Plan Discharge Plan Patient Disposition: Home Discharge orders & Medications Prescriptions: Octavio Cottrell DVT-PE Treat 30D Start 5 mg (74 tabs) tablets,dose pack See Rx Instructions .ROUTE .COMPLEX Qty: 74 RF: 0 Continued ibuprofen 200 mg Tablet 600 mg PO DAILY PRN (Reason: Pain (Scale Score 1-3)) RF: 0 acetaminophen 500 mg capsule 500 mg PO Q4H MDD max 6 tabs per day PRN (Reason: Pain, Mild (1-3)) Qty: 90 RF: 0 docusate sodium 100 mg Capsule 100 mg PO BID PRN (Reason: constipation) Qty: 30 RF: 0 hydromorphone 4 mg Tablet 4 mg PO Q4HR PRN (Reason: Pain, Severe (7-10)) Qty: 42 RF: 0 hydroxyzine pamoate 25 mg Capsule 25 mg PO Q4HR PRN (Reason: spasms, Nausea And Vomiting) Qty: 40 RF: 0 Follow up/Referrals: Chapito Schwartz MD [Primary Care Provider] - Discharge Health Status Multidrug resistant organism: No MDRO Diet/Activity/Treatments Diet: Diet as Tolerated Skin/Wound/Dressing Care Report to your healthcare provider any signs of infection, such as:: increased pain Discharge Data Primary Care Provider: Chapito Schwartz Quality VTE Deep Vein Thrombosis/Pulmonary Embolism Present on Admission: Yes
--- NOTE | 2021-01-11 13:09 | PM.PN.1 ---
Exam Vital Signs (past 8 hours): - 01/11/21 06:13 01/11/21 08:00 01/11/21 09:01 Temperature 97.5 F L Pulse Rate 83 Respiratory Rate 18 Blood Pressure 113/66 Pulse Oximetry 95 94 93 Oxygen Delivery Method Nasal Cannula Oxygen Flow Rate 1 Objective Labs Result Diagrams: 01/11/21 05:30 01/11/21 05:30 Labs: Laboratory Results - last 24 hr 01/10/21 01/10/21 01/10/21 13:15 17:28 19:28 WBC 7.8 RBC 4.10 L Hgb 13.7 Hct 39.4 L MCV 96.0 MCH 33.5 MCHC 34.8 RDW 13.0 Plt Count 104 L APTT 48 H 67 H D Sodium Potassium Chloride Carbon Dioxide BUN Creatinine Estimated GFR BUN/Creatinine Ratio Glucose Calcium Magnesium 01/11/21 01/11/21 01/11/21 05:30 05:30 05:30 WBC 9.0 RBC 3.97 L Hgb 13.1 L Hct 37.9 L MCV 95.5 MCH 33.0 MCHC 34.6 RDW 12.8 Plt Count 113 L APTT 67 H Sodium 132 L Potassium 4.3 Chloride 99 Carbon Dioxide 31 BUN 11 Creatinine 0.68 Estimated GFR > 60.0 BUN/Creatinine Ratio 16.2 Glucose 127 H Calcium 9.0 Magnesium 2.0 PFSH Medical History Arthritis Deep vein thrombosis of lower extremity History of deep venous thrombosis (DVT) of distal vein of right lower extremity History of osteosarcoma Osteosarcoma (~2000) Pulmonary embolism (2019) Pulmonary embolism on right Seasonal allergies Surgical History H/O lumbosacral spine surgery History of mandibular surgery History of nasal septoplasty Hx of partial thyroidectomy Hx of sinus surgery Hx of tonsillectomy Status post left partial knee replacement (2019) Family History Brother Cancer Father Old age Mother Alive and well Social History household members: significant other Smoking Status: Current every day smoker alcohol intake: current Assessment & Plan Assessment & Plan narrative: Pt was re-admitted on 01/08 for PE. Patient has been on therapeutic dose heparin for treatment of PE. Patient is being discharged on oral eliquis. On exam, patient is neuro intact and his incision is clean dry intact w/o swelling, drainage, induration. I will f/u with patient is 3 days for wound check and fam removal. Patient's care plan was discussed with hospitalist and patient and his . Patient understands and agree with plan and will see me in 3 days. I educated him about the possibilities of post surgery hematoma while taking eliquis. I instructed him to call my office/ on-call physician for worsening neurologic symptoms such as weakness, numbness, pain in his legs and/or increased swelling to his incisions/lower back. Patient understands and will monitor his incisions and his neurologic status per my instruction. Time Spent With Patient Critical Care time: I spent a total of [] minutes of critical care time on this patient's care today; this time is exclusive of procedural time. Quality VTE Deep Vein Thrombosis/Pulmonary Embolism Present on Admission: Yes
--- NOTE | 2021-01-11 14:06 | CM.DPC ---
DCP Discharge Home Per Ortho MD, pt is medically stable to d/c home today with outpt f/u with Ortho in 3 days. Per PT, pt was able to participate again today and recommending safe d/c home with spouse assist. Per RN, no concerns at this time. Plan: SW to follow for plan of pt d/c home via spouse POV and close Ortho outpt f/u and no further SW needs at this time, please refer if indicated. Modesta Mac MSW
[2021-01-11] MEDS: APIXABAN 5 MG TABLET 10 MG PO (14:07)
== END 2021-01-11 14:23 | disposition home or self-care (01) | DRG 134 ==
LOC: ED 23:07 → AC 23:07
PROVIDERS: Family Medicine; Internal Medicine; Admitting Provider Nurse Practitioner Family; Emergency Provider Emergency Medicine; Family Provider Physician Assistant; PCP Family Medicine; Referring Provider Emergency Medicine; Visit Provider Nurse Practitioner Family
DX: I26.99 Other pulmonary embolism without acute cor pulmonale (principal); F17.210 Nicotine dependence, cigarettes, uncomplicated; Z86.718 Personal history of other venous thrombosis and embolism; Z86.711 Personal history of pulmonary embolism; Z20.822 Contact with and (suspected) exposure to COVID-19; G89.18 Other acute postprocedural pain; Z98.1 Arthrodesis status
CPT/HCPCS: 36415; 71275; 80048; 80053; 81001; 81003; 82550; 82553; 83605; 83735; 84145; 84484; 85025; 85027; 85730; 87040; 87635; 93005; 93010; 93970; 94762; 96365; 96366; 96367; 96375; 97116; 97162; 97530; 99285; C9803; J0696; J1170; J1644; J2270; Q9967

== ENCOUNTER 2022-05-18 02:08 | Emergency (ER) | payer MEDICARE, SELFPAY ==
[2021-01-09 01:28] VITALS: BMI 25.7
[2022-05-18 02:15] VITALS: BP 144/88; PULSE 122; RESP 20; TEMP 36.6; O2SAT 98; BMI 25.9
[2022-05-18 02:52] LABS: Add Manual Diff / Slide Review NO; Basophils Absolute Auto 100 /uL (0-100); Basophils Percent Auto 0.7 % (0-2); Eosinophils Absolute Auto 300 /uL (0-450); Eosinophils Percent Auto 3.6 % (2-4); Hematocrit 45.4 % (41-53); Hemoglobin 15.6 g/dL (13.5-17.5); Lymphocytes Absolute Auto 1300 /uL (1100-4500); Lymphocytes Percent Auto 14.7 % (25-40); Mean Corpuscular HGB Conc 34.4 % (30-36); Mean Corpuscular Hemoglobin 34.5 PG (26-34); Mean Corpuscular Volume 100.2 fL (80-100); Monocytes Absolute Auto 700 /uL (0-900); Neutrophils Absolute Auto 6500 /uL (1500-7000); Platelet Count 119 X10^3/uL (150-400); Red Blood Cell Count 4.53 X10^6/uL (4.5-5.9); Red Cell Distribution Width 13.6 % (11.6-14.8); White Blood Cell Count 8.9 X10^3/uL (4.5-11.0)
[2022-05-18 02:58] LABS: Alanine Aminotransferase 30 IU/L (<50); Albumin 4.1 g/dL (3.5-5.0); Albumin Globulin Ratio 1.2 (1.0-2.8); Alkaline Phosphatase 102 U/L (38-126); Aspartate Aminotransferase 26 IU/L (17-59); BUN Creatinine Ratio 19.2 (6-22); Bilirubin Total 0.9 mg/dL (0.2-1.3); Blood Urea Nitrogen 23 mg/dL (9-20); Calcium 9.5 mg/dL (8.4-10.2); Carbon Dioxide 24 mmol/L (22-32); Chloride 102 mmol/L (98-107); Estimated Glomerular Filt Rate > 60 mL/min (>60); Globulin 3.4 g/dL (1.7-4.1); Glucose 124 mg/dL (80-110); HEMOLYSIS < 15 (0-50); Lipase 45 U/L (23-300); Potassium 4.5 mmol/L (3.4-5.1); Sodium 138 mmol/L (137-145); Total Protein 7.5 g/dL (6.3-8.2)
[2022-05-18] MEDS: ONDANSETRON 4 MG/2 ML INJ IV (03:04)
[2022-05-18] MEDS: KETOROLAC 30 MG/ML VIAL IV (03:04)
--- NOTE | 2022-05-18 03:47 | ED_ITS ---
HPI - Back Pain/Injury General Chief Complaint: Back Pain/Injury Stated Complaint: severe back pain possible kidney stone Time Seen by Provider: 05/18/22 02:25 Source: patient History of Present Illness HPI Narrative: Patient is a 66-year-old male history of PE and DVT secondary to surgery not currently anticoagulated, presenting today with left-sided flank pain. He said it started about 2 or 3 days ago. He had an episode that was painful and then it went away. He had 1 episode where it radiated to his groin. No fever or chills. He denies any hematuria. He has no pain in his leg. He denies any recent injury. He did have 1 prior episode of kidney stone this feels slightly similar. He denies any nausea or vomiting. He is relatively uncomfortable noted to be tachycardic. He is not had any recent travel. He denies any chest pain palpitations or shortness of breath. Related Data Home Medications Medication Instructions Recorded Confirmed ibuprofen 200 mg tablet 600 mg PO DAILY PRN Pain (Scale 01/04/21 01/09/21 Score 1-3) Previous Rx's Medication Instructions Recorded acetaminophen 500 mg capsule 500 mg PO Q4H PRN Pain, Mild (1-3) 01/07/21 #90 caps docusate sodium 100 mg capsule 100 mg PO BID PRN constipation #30 01/07/21 caps hydromorphone 4 mg tablet 4 mg PO Q4HR PRN Pain, Severe 01/07/21 (7-10) #42 tabs hydroxyzine pamoate 25 mg capsule 25 mg PO Q4HR PRN spasms, Nausea 01/07/21 And Vomiting #40 caps apixaban 5 mg (74 tabs) tablets in See Rx Instructions PO .COMPLEX 01/11/21 a dose pack (Eliquis DVT-PE Treat #74 ea 30D Start) Allergies Allergy/AdvReac Type Severity Reaction Status Date / Time Penicillins Allergy Mild Rash Verified 01/09/21 13:50 bee venom protein (honey bee) AdvReac Intermediate Swelling Verified 01/01/21 14:04 at site Review of Systems Review of Systems ROS Unobtainable: All systems reviewed & are unremarkable except as noted in HPI and below Patient History Medical History Arthritis Deep vein thrombosis of lower extremity History of deep venous thrombosis (DVT) of distal vein of right lower extremity History of osteosarcoma Osteosarcoma (~2000) Pulmonary embolism (2019) Pulmonary embolism on right Seasonal allergies Surgical History H/O lumbosacral spine surgery History of mandibular surgery History of nasal septoplasty Hx of partial thyroidectomy Hx of sinus surgery Hx of tonsillectomy Status post left partial knee replacement (2019) Family History Brother Cancer Father Old age Mother Alive and well Social History household members: significant other Smoking Status: Current every day smoker alcohol intake: current Smoking Status: Current every day smoker alcohol intake frequency: a few times a week Substance Use Type: does not use Exam Initial Vital Signs Initial Vital Signs: Vital Signs Temperature 97.8 F 05/18/22 02:15 Pulse Rate 122 H 05/18/22 02:15 Respiratory Rate 20 05/18/22 02:15 Blood Pressure 144/88 H 05/18/22 02:15 Pulse Oximetry 98 05/18/22 02:15 Oxygen Delivery Method Room Air 05/18/22 02:15 GENERAL: Alert pleasant 66-year-old and in no acute distress. HEENT: Head atraumatic,EOMI, pupils reactive, face symmetric, moist mucous membranes CARDIOVASCULAR: Regular rate and rhythm without murmurs, rubs or gallops. RESPIRATORY: Breath sounds equal bilaterally, no wheezes rales or rhonchi. ABDOMEN: Soft, nontender. Normoactive bowel sounds all 4 quadrants. No guarding or rebound. : Mild left CVA tenderness EXTREMITIES: Normal range of motion, no clubbing or edema. Neurovascularly intact NEUROLOGICAL: Alert and oriented x4.Normal gait and speech. SKIN: Warm, dry, no laceration, no petechiae, no rashes or lesions. Course Orders Ordered: ED Orders 05/18/22 02:40 Complete Blood Count AUTO DIFF Stat Comprehensive Metabolic Panel Stat Lipase Stat 05/18/22 03:50 CT kidney ureter bladder (KUB) Stat Discontinued Medications Sodium Chloride (Normal Saline 0.9%) 1,000 mls @ 1,000 mls/hr IV BOLUS ONE Stop: 05/18/22 04:56 Last Admin: 05/18/22 04:02 Dose: 1,000 mls/hr Documented By: SAY Ketorolac Tromethamine (Ketorolac 30 Mg/Ml Vial) 30 mg IV NOW ONE Stop: 05/18/22 02:26 Last Admin: 05/18/22 03:04 Dose: 30 mg Documented By: WILLIAMS Morphine Sulfate (Morphine 2 Mg/Ml Inj) 2 mg IV NOW ONE Stop: 05/18/22 03:51 Last Admin: 05/18/22 04:02 Dose: 2 mg Documented By: SAY Ondansetron HCl (Ondansetron 4 Mg/2 Ml Inj) 4 mg IV NOW ONE Stop: 05/18/22 02:26 Last Admin: 05/18/22 03:04 Dose: 4 mg Documented By: WILLIAMS Vital Signs Vital signs: Vital Signs - 8 hr 05/18/22 02:15 Temperature 97.8 F Pulse Rate 122 H Respiratory Rate 20 Blood Pressure 144/88 H Pulse Oximetry 98 Oxygen Delivery Method Room Air MDM - Back Pain/Injury Lab Data 05/18/22 02:40 05/18/22 02:40 Labs: Lab Results 05/18/22 05/18/22 Range/Units 02:40 02:40 WBC 8.9 (4.5-11.0) X10^3/uL RBC 4.53 (4.5-5.9) X10^6/uL Hgb 15.6 (13.5-17.5) g/dL Hct 45.4 (41-53) % MCV 100.2 H (80-100) fL MCH 34.5 H (26-34) PG MCHC 34.4 (30-36) % RDW 13.6 (11.6-14.8) % Plt Count 119 L (150-400) X10^3/uL Neut % (Auto) 73.0 (50-75) % Lymph % (Auto) 14.7 L (25-40) % [place] % (Auto) 8.0 (3-14) % Eos % (Auto) 3.6 (2-4) % Baso % (Auto) 0.7 (0-2) % Neut # (Auto) 6500 (8025-4963) /uL Lymph # (Auto) 1300 (8505-8051) /uL [place] # (Auto) 700 (0-900) /uL Eos # (Auto) 300 (0-450) /uL Baso # (Auto) 100 (0-100) /uL Sodium 138 (137-145) mmol/L Potassium 4.5 (3.4-5.1) mmol/L Chloride 102 (98-107) mmol/L Carbon Dioxide 24 (22-32) mmol/L BUN 23 H (9-20) mg/dL Creatinine 1.20 (0.66-1.25) mg/dL Estimated GFR > 60 (>60) mL/min BUN/Creatinine Ratio 19.2 (6-22) Glucose 124 H (80-110) mg/dL Calcium 9.5 (8.4-10.2) mg/dL Total Bilirubin 0.9 (0.2-1.3) mg/dL AST 26 (17-59) IU/L ALT 30 (<50) IU/L Alkaline Phosphatase 102 (38-126) U/L Total Protein 7.5 (6.3-8.2) g/dL Albumin 4.1 (3.5-5.0) g/dL Globulin 3.4 (1.7-4.1) g/dL Albumin/Globulin Ratio 1.2 (1.0-2.8) Lipase 45 (23-300) U/L Urine Dip Bedside Urine Glucose Negative Bedside Urine Bilirubin - Negative Bedside Urine Ketone - Negative Urine Specific [place] 1.020 Bedside Urine Occult Blood +/- Bedside Urine pH 6.0 Bedside Urine Protein +/- 15 Bedside Urine Urobilinogen - Negative Bedside Urine Nitrite - Negative Bedside Urine Leukocytes - Negative Esterase Imaging Data CT scan - abdomen/pelvis: Radiologist's Impression: Preliminary report mild left hydronephrosis 3 mm calculus within urinary bladder near the left UVJ potentially recently passed. Clinically correlate. MDM Narrative Medical decision making narrative: Patient 66-year-old male presents with ongoing flank pain sometimes radiates to his groin. He is found to have a 3 mm stone just passing into his bladder on his CT. He is feeling much better after morphine he initially was given Toradol but it was not quite enough. Blood work is overall reassuring without signs of acute kidney injury. No evidence of UTI. He is given [place] and a prepack for pain management at home. Discharge Plan Departure Patient Disposition: Home Clinical Impression: Kidney stones Instructions: DI for Kidney Stones Activity Restrictions/Additional Instructions: Downtime discharge given Prescriptions: No Action ibuprofen 200 mg Tablet 600 mg PO DAILY PRN (Reason: Pain (Scale Score 1-3)) Patient Comments: takes 400-600mg daily prn acetaminophen 500 mg capsule 500 mg PO Q4H MDD max 6 tabs per day PRN (Reason: Pain, Mild (1-3)) Qty: 90 0RF docusate sodium 100 mg Capsule 100 mg PO BID PRN (Reason: constipation) Qty: 30 0RF hydromorphone 4 mg Tablet 4 mg PO Q4HR PRN (Reason: Pain, Severe (7-10)) Qty: 42 0RF hydroxyzine pamoate 25 mg Capsule 25 mg PO Q4HR PRN (Reason: spasms, Nausea And Vomiting) Qty: 40 0RF Eliquis DVT-PE Treat 30D Start 5 mg (74 tabs) tablets,dose pack See Rx Instructions .ROUTE .COMPLEX Qty: 74 0RF Rx Instructions: orally per package directions Referrals: Chapito Schwartz MD [Primary Care Provider] - Stand Alone Forms: Patient Portal/API
--- NOTE | 2022-05-18 03:50 | DI.CT.S_ITS ---
PROCEDURE: CT KIDNEY URETER BLADDER (KUB) INDICATIONS: left flank pain TECHNIQUE: Axial sections were acquired from the lung bases to the pubic symphysis. Coronal and sagittal reformats were performed. For radiation dose reduction, the following was used: automated exposure control, adjustment of mA and/or kV according to patient size. COMPARISON: None. FINDINGS: Image quality: Excellent. Lung bases: Unremarkable. Heart: No significant findings. URINARY: Right Kidney: No hydronephrosis or nephrolithiasis. An exophytic low-density cyst is present within the lower pole of the right kidney. Right Ureter: No hydroureter or ureterolithiasis. Left Kidney: There is mild to moderate left hydronephrosis and moderate left perinephric fat stranding. No left nephrolithiasis. Left Ureter: There is mild left hydroureter. A 2-3 mm calculus is present within the left ureterovesicular junction (series 2/image 70). Bladder: Normal wall thickness. No stones. ABDOMEN: Liver: The liver is diffusely hypodense suggesting fatty infiltration. Gallbladder: A 2 mm calculus is present in the gallbladder fundus. No gallbladder wall thickening or pericholecystic fluid. Biliary ducts: Unremarkable. Pancreas: Unremarkable. Spleen: Unremarkable. Adrenal Glands: Unremarkable. Stomach and Bowel: Stomach, small bowel loops, and colon are unremarkable. Peritoneum: No abnormal intraperitoneal fluid. No free air. Ventral Wall: No hernia. Abdominal Nodes: No enlarged retroperitoneal or mesenteric lymph nodes. Vessels: Aorta and inferior vena cava are normal in size. PELVIS: Pelvic Organs: Unremarkable. Pelvic Nodes: Unremarkable. Miscellaneous: No inguinal hernias are seen. Bones: Unremarkable. IMPRESSION: 1. Distal left ureterolithiasis at the UVJ with mild to moderate left hydronephrosis. 2. Hepatic steatosis. These findings are concordant with the overnight interpretation. Dictated by: Freya Brewer M.D. on 05/18/2022 at 9:02 Approved by: Freya Brewer M.D. on 05/18/2022 at 9:11
[2022-05-18] MEDS: SODIUM CHLORIDE 0.9% 1,000 ML 1000 ML IV (04:02)
[2022-05-18] MEDS: MORPHINE 2 MG/ML INJ IV (04:02)
--- NOTE | 2022-05-18 11:51 | ED_ITS ---
HPI - Back Pain/Injury General Chief Complaint: Back Pain/Injury Stated Complaint: severe back pain possible kidney stone Time Seen by Provider: 05/18/22 02:25 Source: patient Related Data Home Medications Medication Instructions Recorded Confirmed ibuprofen 200 mg tablet 600 mg PO DAILY PRN Pain (Scale 01/04/21 01/09/21 Score 1-3) Previous Rx's Medication Instructions Recorded acetaminophen 500 mg capsule 500 mg PO Q4H PRN Pain, Mild (1-3) 01/07/21 #90 caps docusate sodium 100 mg capsule 100 mg PO BID PRN constipation #30 01/07/21 caps hydromorphone 4 mg tablet 4 mg PO Q4HR PRN Pain, Severe 01/07/21 (7-10) #42 tabs hydroxyzine pamoate 25 mg capsule 25 mg PO Q4HR PRN spasms, Nausea 01/07/21 And Vomiting #40 caps apixaban 5 mg (74 tabs) tablets in See Rx Instructions PO .COMPLEX 01/11/21 a dose pack ([employer] DVT-PE Treat #74 ea 30D Start) hydrocodone 5 mg-acetaminophen 325 1 tab PO Q4-6H PRN pain #14 tabs 05/18/22 mg tablet Allergies Allergy/AdvReac Type Severity Reaction Status Date / Time Penicillins Allergy Mild Rash Verified 01/09/21 13:50 bee venom protein (honey bee) AdvReac Intermediate Swelling Verified 01/01/21 14:04 at site Patient History Medical History Arthritis Deep vein thrombosis of lower extremity History of deep venous thrombosis (DVT) of distal vein of right lower extremity History of osteosarcoma Osteosarcoma (~2000) Pulmonary embolism (2019) Pulmonary embolism on right Seasonal allergies Surgical History H/O lumbosacral spine surgery History of mandibular surgery History of nasal septoplasty Hx of partial thyroidectomy Hx of sinus surgery Hx of tonsillectomy Status post left partial knee replacement (2019) Family History Brother Cancer Father Old age Mother Alive and well Social History household members: significant other Smoking Status: Current every day smoker alcohol intake: current Smoking Status: Current every day smoker alcohol intake frequency: a few times a week Substance Use Type: does not use Exam Initial Vital Signs Initial Vital Signs: Vital Signs Temperature 97.8 F 05/18/22 02:15 Pulse Rate 122 H 05/18/22 02:15 Respiratory Rate 20 05/18/22 02:15 Blood Pressure 144/88 H 05/18/22 02:15 Pulse Oximetry 98 05/18/22 02:15 Oxygen Delivery Method Room Air 05/18/22 02:15 Course Course Course Narrative: There was concern for accuracy with the prescription for oxycodone, the IT system was down at the patient's time of disposition. I have reordered oxycodone 1 tablet every 4-6 hours as needed for pain.-Derek LIMON 05/18/22@ 11:52AM. Orders Ordered: ED Orders 05/18/22 03:50 CT kidney ureter bladder (KUB) Stat Discontinued Medications Sodium Chloride (Normal Saline 0.9%) 1,000 mls @ 1,000 mls/hr IV BOLUS ONE Stop: 05/18/22 04:56 Last Admin: 05/18/22 04:02 Dose: 1,000 mls/hr Documented By: SAY Ketorolac Tromethamine (Ketorolac 30 Mg/Ml Vial) 30 mg IV NOW ONE Stop: 05/18/22 02:26 Last Admin: 05/18/22 03:04 Dose: 30 mg Documented By: WILLIAMS Morphine Sulfate (Morphine 2 Mg/Ml Inj) 2 mg IV NOW ONE Stop: 05/18/22 03:51 Last Admin: 05/18/22 04:02 Dose: 2 mg Documented By: SAY Ondansetron HCl (Ondansetron 4 Mg/2 Ml Inj) 4 mg IV NOW ONE Stop: 05/18/22 02:26 Last Admin: 05/18/22 03:04 Dose: 4 mg Documented By: WILLIAMS MDM - Back Pain/Injury Lab Data 05/18/22 02:40 05/18/22 02:40 Labs: Lab Results 05/18/22 05/18/22 Range/Units 02:40 02:40 WBC 8.9 (4.5-11.0) X10^3/uL RBC 4.53 (4.5-5.9) X10^6/uL Hgb 15.6 (13.5-17.5) g/dL Hct 45.4 (41-53) % MCV 100.2 H (80-100) fL MCH 34.5 H (26-34) PG MCHC 34.4 (30-36) % RDW 13.6 (11.6-14.8) % Plt Count 119 L (150-400) X10^3/uL Neut % (Auto) 73.0 (50-75) % Lymph % (Auto) 14.7 L (25-40) % [place] % (Auto) 8.0 (3-14) % Eos % (Auto) 3.6 (2-4) % Baso % (Auto) 0.7 (0-2) % Neut # (Auto) 6500 (6098-7662) /uL Lymph # (Auto) 1300 (4177-5870) /uL [place] # (Auto) 700 (0-900) /uL Eos # (Auto) 300 (0-450) /uL Baso # (Auto) 100 (0-100) /uL Sodium 138 (137-145) mmol/L Potassium 4.5 (3.4-5.1) mmol/L Chloride 102 (98-107) mmol/L Carbon Dioxide 24 (22-32) mmol/L BUN 23 H (9-20) mg/dL Creatinine 1.20 (0.66-1.25) mg/dL Estimated GFR > 60 (>60) mL/min BUN/Creatinine Ratio 19.2 (6-22) Glucose 124 H (80-110) mg/dL Calcium 9.5 (8.4-10.2) mg/dL Total Bilirubin 0.9 (0.2-1.3) mg/dL AST 26 (17-59) IU/L ALT 30 (<50) IU/L Alkaline Phosphatase 102 (38-126) U/L Total Protein 7.5 (6.3-8.2) g/dL Albumin 4.1 (3.5-5.0) g/dL Globulin 3.4 (1.7-4.1) g/dL Albumin/Globulin Ratio 1.2 (1.0-2.8) Lipase 45 (23-300) U/L Urine Dip Bedside Urine Glucose Negative Bedside Urine Bilirubin - Negative Bedside Urine Ketone - Negative Urine Specific [place] 1.020 Bedside Urine Occult Blood +/- Bedside Urine pH 6.0 Bedside Urine Protein +/- 15 Bedside Urine Urobilinogen - Negative Bedside Urine Nitrite - Negative Bedside Urine Leukocytes - Negative Esterase Discharge Plan Departure Patient Disposition: Home Clinical Impression: Kidney stones Instructions: DI for Kidney Stones Activity Restrictions/Additional Instructions: Downtime discharge given Prescriptions: New hydrocodone-acetaminophen 5-325 mg tablet 1 tab PO Q4-6H PRN (Reason: pain) Qty: 14 0RF No Action ibuprofen 200 mg Tablet 600 mg PO DAILY PRN (Reason: Pain (Scale Score 1-3)) Patient Comments: takes 400-600mg daily prn acetaminophen 500 mg capsule 500 mg PO Q4H MDD max 6 tabs per day PRN (Reason: Pain, Mild (1-3)) Qty: 90 0RF docusate sodium 100 mg Capsule 100 mg PO BID PRN (Reason: constipation) Qty: 30 0RF hydromorphone 4 mg Tablet 4 mg PO Q4HR PRN (Reason: Pain, Severe (7-10)) Qty: 42 0RF hydroxyzine pamoate 25 mg Capsule 25 mg PO Q4HR PRN (Reason: spasms, Nausea And Vomiting) Qty: 40 0RF Eliquis DVT-PE Treat 30D Start 5 mg (74 tabs) tablets,dose pack See Rx Instructions .ROUTE .COMPLEX Qty: 74 0RF Rx Instructions: orally per package directions Referrals: Chapito Schwartz MD [Primary Care Provider] - Stand Alone Forms: Patient Portal/API
== END 2022-05-18 05:47 | disposition home or self-care (01) ==
PROVIDERS: Emergency Provider Emergency Medicine; Family Provider Physician Assistant; PCP Family Medicine
DX: N20.0 Calculus of kidney (principal)
CPT/HCPCS: 36415; 74176; 80053; 81003; 83690; 85025; 96374; 96375; 99284; J1885; J2270; J2405

== ENCOUNTER → 2023-04-20 07:56 | Outpatient (CLI) | payer MEDICARE, SELFPAY ==
[2021-01-09 01:28] VITALS: BMI 25.7
--- NOTE | 2023-04-20 07:58 | DI.RAD.S_ITS ---
PROCEDURE: XR LUMBAR SPINE MIN 4V INDICATIONS: LOW BACK PAIN TECHNIQUE: 5 views of the lumbar spine were acquired, including bilateral oblique views. COMPARISON: [facility], , XR LUMBAR SPINE 2-3V, 01/04/2021, 16:11. FINDINGS: Bones: 5 nonrib-bearing vertebrae are present. Postsurgical changes from L4-5 posterior spinal fixation and discectomy. Straightening of normal lumbar lordosis. Minimal retrolisthesis of L3 on L4 and L4 on L5. There is multilevel facet arthropathy, worse at L4-5 and L5-S1. Mild multilevel disc height loss with degenerative endplate changes and spurring is present. This is most pronounced at L3-L4. Diffusely decreased osseous mineralization. No vertebral body compression fractures. No suspicious bony lesions. Soft tissues: Overlying bowel gas pattern is normal. No suspicious soft tissue calcifications. Oblique images: No definite pars defects, hardware limits evaluation of those levels.. IMPRESSION: Degenerative changes of the lumbar spine are most pronounced at L3-L4. Status post L4-5 posterior spinal fixation and discectomy. No evidence of hardware complication. Dictated by: Uli Sorensen M.D. on 04/20/2023 at 10:28 Approved by: Uli Sorensen M.D. on 04/20/2023 at 10:29
== END ==
PROVIDERS: Family Provider Physician Assistant; PCP Physician Assistant; Referring Provider Anesthesiology; Visit Provider Anesthesiology
DX: M47.816 Spondylosis without myelopathy or radiculopathy, lumbar region (principal); M47.817 Spondylosis without myelopathy or radiculopathy, lumbosacral region; M53.3 Sacrococcygeal disorders, not elsewhere classified; M51.36 Other intervertebral disc degeneration, lumbar region; M54.9 Dorsalgia, unspecified; M54.50 Low back pain, unspecified; Z98.1 Arthrodesis status
CPT/HCPCS: 72110; 99214

== ENCOUNTER 2023-06-14 07:36 | Outpatient (CLI) | payer MEDICARE, SELFPAY ==
[2021-01-09 01:28] VITALS: BMI 25.7
--- NOTE | 2023-06-14 07:55 | DI.RAD.S_ITS ---
PROCEDURE: PAIN SI JOINT INJECTION ENRIQUE INDICATIONS: JOINT DYSFUNCTION COMPARISON: None. FINDINGS: Fluoroscopic spot filming was performed to verify placement of spinal needles at the bilateral sacroiliac joints level(s), as labeled on the films. Appropriate location(s) of the needle tip(s) was confirmed by injection of iodinated contrast. IMPRESSION: Bilateral sacroiliac joint needle and contrast localization. Dictated by: Nalini Clements M.D. on 06/14/2023 at 13:42 Approved by: Nalini Clements M.D. on 06/14/2023 at 13:42
[2023-06-14 08:05] VITALS: BP 150/76; PULSE 92; RESP 18; TEMP 36.9; O2SAT 96
[2023-06-14 08:35] VITALS: BP 150/83; PULSE 92; RESP 20; O2SAT 97
[2023-06-14] MEDS: BUPIVACAINE 0.5% (PF) 10 ML VIAL 5 ML INJ (08:39)
[2023-06-14] MEDS: DEXAMETHASONE 10 MG/ML VIAL 20 MG INJ (08:39)
[2023-06-14] MEDS: iopamidoL 15 ML VIAL 3 ML INJ (08:39)
[2023-06-14 08:40] VITALS: BP 149/82; PULSE 91; RESP 21; O2SAT 98
[2023-06-14 08:45] VITALS: BP 148/83; PULSE 97; RESP 24; O2SAT 99
[2023-06-14 08:50] VITALS: BP 137/77; PULSE 88; RESP 16; O2SAT 98
--- NOTE | 2023-06-14 11:48 | P.PCN_ITS ---
Date/Time/Diagnoses Date of procedure: 06/14/23 Time of procedure: 08:30 Procedure Notes Physician: Ferdinand Soni Total Fluoroscopy time (seconds): 14 Total sedation minutes: 0 Procedure in detail & Post-procedure care: Bilateral Sacroiliac Joint Injection Indications: Eliezer is presenting for treatment of SI joint dysfunction with low back/buttock pain. Preoperative diagnosis: Bilateral SI joint dysfunction Postoperative diagnosis: Same Focused Examination: Ax3 Mood and affect are normal Vital Signs: VSS Consent: Following review of allergies and potential side effects/complications, including, but not necessarily limited to, infection, allergic reaction, local tissue breakdown, stroke, temporary or permanent nerve injury, paralysis, and possible , the patient indicated that they understood and agreed to proceed.? An informed consent document was signed by the patient, witnessed by a nurse and placed in the patient's chart.? Additionally, other treatment options including medications and physical therapy were reviewed with the patient. All questions were answered. Site was then marked. Anesthesia: Local Position: Prone Monitoring: NIBP, Pulse oximetry, 3 lead EKG Needle used: 22 ga, 3.5 inch spinal Contrast: 2 mL Isovue M-300 Injectate: Dexamethasone 7.5 mg with 1% lidocaine 2 mL per site Technique: The skin was prepped with chloraprep and then draped in a sterile fashion. Time out was performed as per protocol. Oxygen applied via NC. Skin and subcutaneous structures of the needle entry site was then infiltrated with 5 mL of lidocaine 1%. Under AP and lateral fluoroscopic control, the spinal needle was guided into the right sacroiliac joint. 1 mL contrast was injected and was consistent with intra-articular placement. There was no evidence for intravascular uptake. After negative aspiration, the above-mentioned injectate was then slowly administered and the needle withdrawn. The patient expressed no unusual discomfort or paresthesias during the injection. Skin and subcutaneous structures of the needle entry site was then infiltrated with 5 mL of lidocaine 1%. Under AP and lateral fluoroscopic control, the spinal needle was guided into the left sacroiliac joint. 1 mL contrast was injected and was consistent with intra-articular placement. There was no evidence for intravascular uptake. After negative aspiration, the above-mentioned injectate was then slowly administered and the needle withdrawn. The patient expressed no unusual discomfort or paresthesias during the injection.Band-Aids applied to injection sites. EBL: less than 1 ml Complications: None Post Procedure: Patient was taken to the recovery and monitored. The patient was provided a Pain Log to continue to record the patient's response to the target- specific procedure prior to the patient's follow-up visit with the referring physician. Patient was stable upon discharge. Detailed post procedure instructions were provided. Patient was asked to call in the event of worsening pain, fever, weakness, numbness or bladder or bowel incontinence.
--- NOTE | 2023-06-15 12:43 | PC.NURSE ---
spoke with patient to see how he is doing after his procedure and reports that he is seeing some improvement. He also removed the bandaids and has no issues. Encouraged to to call the clinic if he does have any questions or concerns.
== END 2023-06-14 08:56 | disposition home or self-care (01) ==
PROVIDERS: Family Provider Physician Assistant; PCP Physician Assistant; Referring Provider Anesthesiology; Visit Provider Anesthesiology
DX: M53.3 Sacrococcygeal disorders, not elsewhere classified (principal)
CPT/HCPCS: 27096; J1100

== ENCOUNTER → 2023-07-28 11:02 | Outpatient (CLI) | payer MEDICARE, SELFPAY ==
[2021-01-09 01:28] VITALS: BMI 25.7
--- NOTE | 2023-07-28 11:03 | DI.MRI.S_ITS ---
PROCEDURE: MR LUMBAR SPINE WO CON INDICATIONS: Back pain s/p fusion TECHNIQUE: Noncontrast sagittal T1 spin echo and T2 fast echo, sagittal STIR, and T2 fast spin echo through the lumbar spine. In cases with scoliosis, additional coronal T2 fast spin echo may be performed. COMPARISON: [facility], CT, CT KIDNEY URETER BLADDER (KUB), 05/18/2022, 4:03. [facility], MR, MR LUMBAR SPINE WITHOUT CONTRAST, 02/14/2020, 15:38. FINDINGS: Image quality: Excellent. Alignment and Curvature: There is minimal retrolisthesis seen at the L3-L4 level. Bone Marrow: Marrow is of normal overall signal. No acute vertebral body compression fractures. Spinal Cord: Conus medullaris terminates at the L1 level. Visualized cord demonstrates normal signal and size. Paraspinous Soft Tissues: No paravertebral masses. T12-L1: No significant abnormality is seen. L1-L2: Level within normal limits. L2-L3: The disc height and disk signal are relatively well-preserved. Moderate disc bulge is seen, which is eccentric to the left. Mild facet joint hypertrophy is seen. Moderate bilateral neural foraminal narrowing can be seen, left worse than right. Mild central canal narrowing is seen. These imaging findings have progressed compared to the prior study. L3-L4: At least moderate loss of disc height and disc signal can be seen. Reactive marrow endplate changes are seen which are hypointense on T1-weighted imaging and hyperintense on T2 weighted imaging, which is most consistent with edema (Modic type I changes). Moderate disc bulge is seen, which is eccentric to the left. There is a left subarticular disc protrusion. There is at least moderate left-sided neural foraminal narrowing, with a degree of compression seen upon the exiting nerve root. There is moderate right-sided neural foraminal narrowing. Moderate central canal narrowing is seen. This level is clearly worse than on the prior examination. L4-L5: Interval postoperative change can be seen, with bilateral pedicle screws and vertical fixation rods. There is a disc spacer at this level. Mild generalized disc bulge is seen. Mild facet joint hypertrophy is seen. No neural foraminal narrowing or central canal narrowing can be seen. This level is clearly improved compared to the prior examination. The previously seen disc extrusion has resolved. L5-S1: Moderate loss of disc height is seen. Loss of disc signal is seen. Mild generalized disc bulge is seen. Mild facet joint hypertrophy is seen. There is mild left-sided and moderate right-sided neural foraminal narrowing. No central canal narrowing is seen. The degenerative changes at level are slightly more prominent on the current study than on the prior. IMPRESSION: Since the prior MRI, there has been fixation change at the L4-L5 level, with clear improvement in the degenerative changes at this level. Clear interval worsening of degenerative change at the L3-L4 level. Mild progression of degenerative change can be seen at other levels compared to 2020. Dictated by: Paulo Menard M.D. on 07/28/2023 at 12:12 Approved by: Paulo Menard M.D. on 07/28/2023 at 12:21
== END ==
PROVIDERS: Family Provider Physician Assistant; PCP Physician Assistant; Referring Provider Anesthesiology; Visit Provider Anesthesiology
DX: M47.816 Spondylosis without myelopathy or radiculopathy, lumbar region; M47.817 Spondylosis without myelopathy or radiculopathy, lumbosacral region; M54.9 Dorsalgia, unspecified; Z98.1 Arthrodesis status
CPT/HCPCS: 72148

== ENCOUNTER → 2023-08-15 07:57 | Outpatient (CLI) | payer MEDICARE, SELFPAY ==
[2021-01-09 01:28] VITALS: BMI 25.7
--- NOTE | 2023-08-15 07:58 | DI.ECHO.S_ITS ---
[facility] : : [id number] : [place] : : [id number] : : Phone: [phone] Echocardiogram Report + + :Name: MARYLU MUNOZ Study Date: 08/15/2023 Height: 70 in : :Hospital ReadingLocation: Weight: 180 lb : : Gender: Male BSA: 2.0 m2 : :: 1955 Age: 68 yrs BP: 143/91 mmHg: :Reason For Study: AORTIC ROOT DILATATION : :Ordering Physician: BAKARI, : :INÉS Performed By: Lexii Whitaker : :Referring: INÉS VILLEGAS : + + Interpretation Summary 1) Normal left ventricular thickness and size with low normal systolic function (EF 50-55%). 2) Upper normal right ventricular size with normal function. 3) No significant valvular abnormalities. 4) The aortic root is mildly dilated at 4.1cm. 5) No prior Echo available for comparison. Procedure: A two-dimensional transthoracic echocardiogram with color flow and Doppler was performed. The study quality was technically adequate. There is no prior echocardiogram noted for this patient. The patient was in sinus rhythm with heart rates between 69-85 bpm during the exam. Left Ventricle: Proximal septal thickening is noted. The left ventricle is normal in size and wall thickness. The ejection fraction is estimated to be 50-55%. There are no focal wall motion abnormalities. Right Ventricle: The right ventricle is at the upper limits of normal in size. The right ventricular systolic function is normal. Atria: The left atrial size is normal. Right atrial size is normal. There is no Doppler evidence for an interatrial shunt. The interatrial septum is thin and hypermobile. Mitral Valve: The mitral valve leaflets appear mildly thickened, but open well. There is no mitral regurgitation noted. Aortic Valve: The aortic valve is trileaflet. The aortic valve opens well. There is no aortic valve stenosis. No aortic regurgitation is present. Tricuspid Valve: The tricuspid valve is normal in structure and function. There is trace tricuspid regurgitation. Pulmonary artery pressures cannot be estimated because of the lack of a measurable TR jet velocity. Pulmonic Valve: The pulmonic valve leaflets are thin and pliable; valve motion is normal. There is mild pulmonic regurgitation. Multiple jets present. Great Vessels: The aortic root is mildly dilated. The ascending aorta is at the upper limits of normal in size. The IVC is of normal diameter and collapses greater than 50% with a sniff. This suggests a low right atrial pressure of 3 mm Hg. Pericardium/ Pleura There is a trivial pericardial effusion noted. There is no pleural effusion. MMode/2D Measurements & Calculations LVIDd: 4.6 cm LVOT diam: 2.4 cm LVIDs: 3.3 cm Ao root diam: 4.1 cm FS: 28.4 % asc Aorta Diam: 3.8 cm IVSd: 0.85 cm Ao Arch Diam (Prox Trans): 3.5 cm LVPWd: 0.86 cm LV kerr. diameter/BSA (cm/m^2): 2.3 LV sys. diameter/BSA (cm/m^2): 1.6 LA A2 area: 19.8 cm2 RA long axis: 5.3 cm LA A4 area: 16.6 cm2 RA area: 17.0 cm2 LA length (vol): 4.6 cm RA vol: 46.7 ml LA vol: 60.2 ml RA : 23.4 ml/m2 LA vol index: 30.2 ml/m2 IVC diam: 1.9 cm RVD1 (basal): 4.0 cm TAPSE: 1.9 cm Doppler Measurements & Calculations Ao V2 max: 92.9 cm/sec LVOT Max Blair: 80.0 cm/sec Ao V2 mean: 68.7 cm/sec LV V1 max P.6 mmHg Ao max P.5 mmHg LV V1 VTI: 16.9 cm Ao mean P.1 mmHg LUCI(I,D): 3.7 cm2 Ao V2 VTI: 20.1 cm LUCI(V,D): 3.7 cm2 sev ratio: 0.84 LUCI indexed to BSA (cm^2/m^2): 1.8 MV E max blair: 62.3 cm/sec PA V2 max: 93.3 cm/sec MV A max blair: 72.2 cm/sec PA V2 mean: 69.3 cm/sec MV E/A: 0.86 PA mean P.1 mmHg Med Peak E' Blair: 5.2 cm/sec PA pr(Accel): 32.8 mmHg E/E' med: 11.9 Lat Peak E' Blair: 7.6 cm/sec E/E' lat: 8.2 E/e' average: 10.0 MV dec time: 0.21 sec SV(LVOT): 73.5 ml Reading Physician:10:46 AM
== END ==
PROVIDERS: Family Provider Physician Assistant; PCP Physician Assistant; Referring Provider Physician Assistant; Visit Provider Physician Assistant
DX: I37.1 Nonrheumatic pulmonary valve insufficiency (principal); I77.810 Thoracic aortic ectasia
CPT/HCPCS: 93306

== ENCOUNTER 2023-10-04 08:44 | Outpatient (CLI) | payer MEDICARE, SELFPAY ==
[2021-01-09 01:28] VITALS: BMI 25.7
[2023-10-04] VITALS (8 sets, daily range): BP systolic 134–166; BP diastolic 63–88; PULSE 76–100; RESP 10–21; TEMP 36.8; O2SAT 97–100
--- NOTE | 2023-10-04 09:30 | DI.RAD.S_ITS ---
PROCEDURE: PAIN L/S TRANSFORAMINAL INJECT INDICATIONS: Left L3-4 transforaminal ROEL COMPARISON: [facility], MR, MR LUMBAR SPINE WO CON, 07/28/2023, 11:21. FINDINGS: Fluoroscopic spot filming was performed to verify placement of a spinal needle at the L3-L4 level, as labeled on the films. Appropriate location of the needle tip was confirmed by injection of iodinated contrast. IMPRESSION: Intraprocedural examination within normal limits. Dictated by: Paulo Menard M.D. on 10/04/2023 at 18:52 Approved by: Paulo Menard M.D. on 10/04/2023 at 18:52
[2023-10-04] MEDS: MIDAZOLAM 2 MG/2 ML VIAL 1 MG IV (09:35)
[2023-10-04] MEDS: iopamidoL 15 ML VIAL 3 ML INJ (09:37)
[2023-10-04] MEDS: LIDOCAINE 1% (PF) 5 ML INJ (09:38)
[2023-10-04] MEDS: DEXAMETHASONE 10 MG/ML VIAL INJ (09:38)
--- NOTE | 2023-10-04 12:07 | P.PCN_ITS ---
Date/Time/Diagnoses Date of procedure: 10/04/23 Time of procedure: 09:30 Procedure Notes Physician: Ferdinand Soni Total Fluoroscopy time (seconds): 18 Total sedation minutes: 10 Procedure in detail & Post-procedure care: Left L3-4 Transforaminal Epidural Steroid Injection Indications: Eliezer is presenting for treatment of lumbar radiculopathy with low back and leg pain. Preoperative diagnosis: Lumbar radiculopathy Postoperative diagnosis: Same Focused Examination: Ax3 Mood and affect are normal Vital Signs: VSS ASA: 2 Patient held Eliquis 3 days prior to injection. He was instructed to resume this medication 24 hours after injection. Consent: Following review of allergies and potential side effects/complications, including, but not necessarily limited to, infection, allergic reaction, local tissue breakdown, stroke, temporary or permanent nerve injury, paralysis, and possible , the patient indicated that they understood and agreed to proceed.? An informed consent document was signed by the patient, witnessed by a nurse and placed in the patient's chart.? Additionally, other treatment options including medications and physical therapy were reviewed with the patient. All questions were answered. Site was then marked. Anesthesia: After review of previous anesthetic history and IV conscious sedation, the patient was deemed safe to proceed with today's procedure with IV conscious sedation. IV sedation was accomplished with midazolam 1 mg administered by the RN after order by Dr. Soni. Sedation was titrated to patient comfort during the course of the procedure. Patient remained responsive to all verbal commands. Position: Prone Monitoring: NIBP, Pulse oximetry, 3 lead EKG Needle used: 22 gauge, 3.5 inch spinal needle Contrast: Isovue 300M Injectate: 10 mg Dexamethasone mixed with 1% lidocaine 1 ml and normal saline 1 mL Technique: The skin was prepped with chloraprep and draped in a sterile fashion. Time out was performed as per protocol. Oxygen applied via NC. Skin and subcutaneous structures of the needle entry site were infiltrated with 3mL of lidocaine 1%. Under fluoroscopic guidance, using an ipsilateral oblique view,?a 22 gauge 3.5 inch needle was advanced to the base of the left L3?pedicle.? The needle was advanced to the superio-posterior aspect of the neural foramen under lateral view.? Oblique and AP views were rechecked. No paresthesias noted by the patient during needle placement. In AP view and utilizing real-time digital subtraction fluoroscopy, 2 ml contrast was slowly injected. Epidural spread was observed without evidence for intravascular nor intrathecal uptake. Contrast spread was seen craniocaudally. The above injectate was then administered without paresthesias and the needle was subsequently withdrawn. Band-Aids applied to injection sites. EBL: less than 1 ml Complications: None Post Procedure: Patient was taken to the recovery and monitored. The patient was provided a Pain Log to continue to record the patient's response to the target- specific procedure prior to the patient's follow-up visit with the referring physician. Patient was stable upon discharge. Detailed post procedure instructions were provided. Patient was asked to call in the event of worsening pain, fever, weakness, numbness or bladder or bowel incontinence.
== END 2023-10-04 10:06 | disposition home or self-care (01) ==
PROVIDERS: Family Provider Physician Assistant; PCP Physician Assistant; Referring Provider Anesthesiology; Visit Provider Anesthesiology
DX: M54.16 Radiculopathy, lumbar region (principal)
CPT/HCPCS: 64483; 99152; J1100; J2250

== ENCOUNTER → 2024-05-01 09:56 | Outpatient (CLI) | payer MEDICARE, SELFPAY ==
[2021-01-09 01:28] VITALS: BMI 25.7
--- NOTE | 2024-05-01 10:13 | DI.CT.S_ITS ---
PROCEDURE: CT IVP A/P W/WO INDICATIONS: HEMATURIA, GROSS/MACROSCOPIC TECHNIQUE: Optional 5 mm thick noncontrast images acquired from the diaphragm to the symphysis pubis. After the administration of intravenous contrast, 5 mm thick images acquired from the diaphragm to the symphysis pubis after a 10-minute delay. 2 mm thick coronal and sagittal reformats were then performed of the kidneys and ureters. For radiation dose reduction, the following was used: automated exposure control, adjustment of mA and/or kV according to patient size. COMPARISON: None. FINDINGS: Image quality: Diagnostic. Kidneys and Ureters: Normal size kidneys bilaterally. Occasional punctate calcifications in both intrarenal collecting systems. No hydronephrosis. No calcifications in either ureter. Symmetric enhancement of each kidney. Normal opacification of the intrarenal collecting systems. No filling defects. 2.0 cm cystic mass in the lower posterior pole of the right kidney without significant solid component or enhancement. There may be trace non measurable septation. No other intrarenal masses. No urothelial enhancement or thickening. Bladder: No stones in the urinary bladder. Decompressed urinary bladder demonstrates normal wall thickness. Post partial filling with contrast, there are no discrete filling defects visible. OTHER: Lower chest: Unremarkable. Liver: Moderate hepatic steatosis. No visible enhancing mass. Gallbladder: No gallbladder wall thickening. Punctate calcification along the fundal wall. No dependent cholelithiasis. Biliary ducts: No biliary dilation. Pancreas: Normal size and morphology without visible ductal dilatation or inflammation. Spleen: Size is within normal limits. Adrenal Glands: No adrenal nodules. Stomach and Bowel: Stomach and small bowel loops are normal caliber. Mildly increased quantity of stool in the colon. Peritoneum: No abnormal intraperitoneal fluid. No free air. Ventral Wall: Tiny fat containing umbilical hernia. Abdominal Nodes: No retroperitoneal or mesenteric adenopathy by size criteria. Vessels: The abdominal aorta, IVC, and portal vein are of normal caliber. PELVIS: Pelvic Organs: Moderate prostatomegaly indenting on the base of the urinary bladder. Pelvic Nodes: No enlarged lymph nodes. Miscellaneous: No inguinal hernias are seen. Bones: No aggressive osseous abnormality. Laminectomy and fusion with hardware at the L4-5 level. IMPRESSION: Bilateral nephrolithiasis, punctate. No evidence of obstructive uropathy. Minimally complex right lower pole cyst. No need for follow-up. Moderate hepatic steatosis. Moderate prostatomegaly. Dictated by: Estrellita Campbell M.D. on 05/01/2024 at 14:19 Approved by: Estrellita Campbell M.D. on 05/01/2024 at 14:53
== END ==
PROVIDERS: Family Provider Physician Assistant; PCP Physician Assistant; Referring Provider Physician Assistant; Visit Provider Physician Assistant
DX: N40.0 Benign prostatic hyperplasia without lower urinary tract symptoms (principal); R31.0 Gross hematuria; N20.0 Calculus of kidney; K76.0 Fatty (change of) liver, not elsewhere classified; Z98.1 Arthrodesis status
CPT/HCPCS: 74178; Q9967

== ENCOUNTER → 2024-08-22 07:43 | Outpatient (CLI) | payer MEDICARE, SELFPAY ==
[2021-01-09 01:28] VITALS: BMI 25.7
--- NOTE | 2024-08-22 | DI.ECHO.S_ITS ---
[facility] +---------+ [facility] : : [id number] : [place] [address] : : [id number] : : Phone: [phone] Echocardiogram Report + + :Name: MARYLU MUNOZ Study Date: 08/22/2024 Height: 70 in : :Hospital ReadingLocation: Weight: 176 lb : : Gender: Male BSA: 2.0 m2 : :: 1955 Age: 69 yrs BP: 127/87 mmHg: :Reason For Study: AORTIC ROOT DILATION : :Ordering Physician: BAKARI, : :INÉS Performed By: Lexii Whitaker : :Referring: INÉS VILLEGAS : + + Interpretation Summary The ejection fraction is estimated to be 55-60%. Diastolic parameters suggest probable normal left ventricular diastolic function and normal filling pressures. The right ventricle is normal in size and function. No abnormalities. Pulmonary artery pressures cannot be estimated because of the lack of a measurable TR jet velocity but the IVC suggests a CVP of around 3 mmHg. The aortic root is mildly dilated, 4.3 cm. The ascending aorta is mildly enlarged, 3.9 cm. Compared to the prior study 08/07/2023, there has been a slight increase in the size of the aortic root and ascending aorta. Procedure: A two-dimensional transthoracic echocardiogram with color flow and Doppler was performed. The study quality was technically adequate. Comparison is made with the echocardiogram of 08/15/2023. The patient was in sinus rhythm with heart rates between 59-75 bpm during the exam. Left Ventricle: The left ventricle is normal in size. Proximal septal thickening is noted. The ejection fraction is estimated to be 55-60%. Diastolic parameters suggest probable normal left ventricular diastolic function and normal filling pressures. Right Ventricle: The right ventricle is normal in size and function. Atria: The left atrial size is normal. Right atrial size is normal. There is no Doppler evidence for an interatrial shunt. Mitral Valve: The mitral valve leaflets are mildly calcified. There is no mitral valve stenosis. There is no mitral regurgitation noted. Aortic Valve: The aortic valve is trileaflet. The aortic valve opens well. There is no aortic valve stenosis. No aortic regurgitation is present. Tricuspid Valve: The tricuspid valve leaflets are thin and pliable. There is trace tricuspid regurgitation. Pulmonary artery pressures cannot be estimated because of the lack of a measurable TR jet velocity but the IVC suggests a CVP of around 3 mmHg. Pulmonic Valve: The pulmonic valve leaflets are thin and pliable; valve motion is normal. There is mild to moderate pulmonic regurgitation. Multiple regurgitant jets. Great Vessels: The aortic root is mildly dilated. The ascending aorta is mildly enlarged. The IVC is of normal diameter and collapses greater than 50% with a sniff. This suggests a low right atrial pressure of 3 mm Hg. Pericardium/ Pleura There is no pericardial effusion. There is no pleural effusion. MMode/2D Measurements & Calculations LVIDd: 5.4 cm LVOT diam: 2.4 cm LVIDs: 3.7 cm Ao root diam: 4.3 cm FS: 30.9 % asc Aorta Diam: 3.9 cm IVSd: 0.87 cm Ao Arch Diam (Prox Trans): 3.2 cm LVPWd: 0.74 cm LV kerr. diameter/BSA (cm/m^2): 2.7 LV sys. diameter/BSA (cm/m^2): 1.9 LA A2 area: 19.1 cm2 RA long axis: 5.1 cm LA A4 area: 17.0 cm2 RA area: 17.5 cm2 LA length (vol): 5.1 cm RA vol: 51.2 ml LA vol: 54.6 ml RA : 25.9 ml/m2 LA vol index: 27.6 ml/m2 IVC diam: 1.8 cm RVD1 (basal): 3.7 cm RVD2 (mid): 3.5 cm TAPSE: 2.0 cm Doppler Measurements & Calculations Ao V2 max: 84.1 cm/sec LVOT Max Blair: 68.1 cm/sec Ao V2 mean: 58.8 cm/sec LV V1 max P.9 mmHg Ao max P.8 mmHg LV V1 VTI: 14.8 cm Ao mean P.5 mmHg LUCI(I,D): 3.9 cm2 Ao V2 VTI: 17.5 cm LUCI(V,D): 3.7 cm2 sev ratio: 0.85 LUCI indexed to BSA (cm^2/m^2): 2.0 MV E max blair: 59.6 cm/sec PA V2 max: 88.1 cm/sec MV A max blair: 62.1 cm/sec PA V2 mean: 50.9 cm/sec MV E/A: 0.96 PA mean P.3 mmHg Med Peak E' Blair: 5.9 cm/sec PA pr(Accel): 49.0 mmHg E/E' med: 10.0 Lat Peak E' Blair: 7.4 cm/sec E/E' lat: 8.0 E/e' average: 9.0 MV dec time: 0.24 sec MVA(VTI): 4.2 cm2 MV V2 mean: 39.1 cm/sec SV(LVOT): 68.0 ml MV mean P.72 mmHg MV V2 VTI: 16.4 cm Reading Physician:02:43 PM
== END ==
PROVIDERS: Family Provider Physician Assistant; PCP Physician Assistant; Referring Provider Physician Assistant; Visit Provider Physician Assistant
DX: I77.810 Thoracic aortic ectasia (principal); I77.89 Other specified disorders of arteries and arterioles
CPT/HCPCS: 93306

== ENCOUNTER → 2025-03-05 08:36 | Outpatient (CLI) | payer MEDICARE, SELFPAY ==
[2021-01-09 01:28] VITALS: BMI 25.7
--- NOTE | 2025-03-05 08:39 | DI.CT.S_ITS ---
PROCEDURE: CT ANGIO HEAD INDICATIONS: Please evaluate for aneurysm TECHNIQUE: Precontrast 4.5 mm thick angled axial sections acquired from the foramen magnum to the vertex. After the administration of intravenous contrast, 1 mm thick sections acquired through the [place]. Postcontrast 4.5 mm thick sections then re- acquired from the foramen magnum to the vertex. 10 mm thick jeewunv-ptzncofuf-jiyimpwkbk (MIP) reformats were acquired of the central intracranial vasculature. For radiation dose reduction, the following was used: automated exposure control, adjustment of mA and/or kV according to patient size. COMPARISON: [facility], CT, CT HEAD/BRAIN WO CON, 11/13/2024, 13:26. [facility], MR, MR BRAIN WITH/WITHOUT CONTRAST, 01/04/2025, 18:58. FINDINGS: Image quality: Diagnostic. Anterior circulation: Intracranial internal carotid arteries are normal in size and flow. The flow within the paired anterior cerebral arteries is normal and symmetric. The flow within the middle cerebral arteries is normal and symmetric. The anterior communicating artery is seen. No aneurysms are seen. Posterior circulation: Visualized portions of the vertebral arteries demonstrate normal caliber, and join to form a normal appearing basilar artery. Flow within the posterior cerebral arteries is normal and symmetric. No aneurysms are seen. CSF spaces: Ventricles are normal in size and shape. Basal cisterns are patent. No extra-axial fluid collections. Brain: There is again seen a hyperdense mass along the anterior medial aspect of the left middle cranial fossa, measuring 22 x 15 mm in greatest axial dimension, without significant change from the prior. The posterior portion of this mass demonstrates profound arterial enhancement, with a density indistinguishable from the adjacent arteries. The area with significant enhancement measures 12 x 12 mm, as on series 11, image 48. On the postcontrast images, the lesion appears to emanate from the left supraclinoid intracranial internal carotid artery loss as on series 15, image 99. No midline shift. Guan-white matter interface appears intact. Skull and face: Calvarium and facial bones appear intact, without suspicious lesions. Sinuses: Focal moderate mucosal thickening can be seen within the left maxillary sinus. There is moderate generalized mucosal thickening within the ethmoid air cells. Prior antrectomy change is seen. 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 - Neurosurgical/neurointerventional referral is now recommended. Dictated by: Paulo Menard M.D. on 03/11/2025 at 14:46 Approved by: Paulo Menard M.D. on 03/11/2025 at 14:53
[2025-03-05 09:03] LABS: Estimated Glomerular Filt Rate > 60 mL/min (>60)
== END ==
PROVIDERS: Radiology Diagnostic Radiology; PCP Physician Assistant; Referring Provider Physician Assistant; Visit Provider Neurological Surgery
DX: D32.9 Benign neoplasm of meninges, unspecified (principal); G93.89 Other specified disorders of brain
CPT/HCPCS: 70496; 82565; Q9967